=== PATIENT | male | born 1945 | race Two or more races ===

== ENCOUNTER 2018-06-11 18:46 | Emergency (ER) | payer MEDICARE, MEDICAID ==
[2018-06-11] MEDS ORDERED: Sodium Chloride 0.9% 1,000 ML IV ONE (18:49)
--- NOTE | 2018-06-11 19:00 | ED Physician Chart ---
ED Chief Complaint/HPI - Patient Information Date Seen:: 06/11/18 Time Seen:: 19:30 Chief Complaint:: Failure To Thrive History of Present Illness:: onset x 3 days of failure to thrive, poor oral intake, and weakness; no report of trauma, H/As, S/T, neck pain, cough, C/P, SOB, Abd. Pain, N/V/D/C, fever, chills, or urinary s/s Historian:: Patient, EMS Review:: Nurse's Note Reviewed, Old Chart Reviewed, EMS run form Reviewed ED Review of Systems - Review of Systems General/Constitutional: No fever, No chills, No weight loss, Weakness, No diaphoresis, No edema, No loss of appetite Skin: No skin lesions, No rash, No bruising Head: No headache, No light-headedness Eyes: No loss of vision, No pain, No diplopia ENT: No earache, No nasal drainage, No sore throat, No tinnitus Neck: No neck pain, No swelling, No thyromegaly, No stiffness, No mass noted Cardio Vascular: No chest pain, No palpitations, No PND, No orthopnea, No edema Pulmonary: No SOB, No cough, No sputum, No wheezing GI: No nausea, No vomiting, No diarrhea, No pain, No melena, No hematochezia, No constipation, No hematemesis G/U: No dysuria, No frequency, No hematuria, No nacturia Musculoskeletal: No bone or joint pain, No back pain, No muscle pain Endocrine: No polyuria, No polydipsia Psychiatric: No prior psych history, No depression, No anxiety, No suicidal ideation, No homicidal ideation, No auditory hallucination, No visual hallucination Hematopoietic: No bruising, No lymphadenopathy Allergic/Immuno: No urticaria, No angioedema Neurological: No syncope, No focal symptoms, Weakness, No paresthesia, No headache, No seizure, No dizziness, No confusion, No vertigo ED Past Medical History - Past Medical History Obtainable: Yes Past Medical History: HTN, CAD, Asthma/COPD, Dyslipidemia, ESRD, Thyroid disorder Family History: HTN Social History: Non Smoker, No Alcohol, No Drug Use, , Care Facility Surgical History: None Psychiatricy History: None Medication: Reviewed Family Medical History - Family Member Mother History Unknown: Yes ED Physical Exam - Physical Examination General/Constitutional: Awake, Well-developed, well-nourished, Alert, No distress, GCS 15, Non-toxic appearing, Ambulatory Head: Atraumatic Eyes: Lids, conjuctiva normal, PERRL, EOMI Skin: Nl inspection, No rash, No skin lesions, No ecchymosis, Well hydrated, No lymphadenopathy ENMT: External ears, nose nl, TM canals nl, Nasal exam nl, Lips, teeth, gums nl , Oropharynx nl, Tonsils nl Neck: Nontender, Full ROM w/o pain, No JVD, No nuchal rigidity, No bruit, No mass, No stridor Other Neck comments:: supple; no meningeal signs; no cervical tenderness; no bruits Respiratory: Nl effort/Exclusion, Clear to Auscultation, No Wheeze/Rhonchi/Rales Cardio Vascular: RRR, No murmur, gallop, rubs, NL S1 S2, Carotid/Femoral/Distal pulses equal bilaterally GI: No tenderness/rebounding/guarding, No organomegaly, No hernia, Normal BS's, Nondistended, No mass/bruits, No McBurney tenderness, Rectum exam nl Other GI comments:: no pulsatile masses : No CVA tenderness Extremities: No tenderness or effusion, Full ROM, normal strength in all extremities, No edema, Normal digits & nails Neuro/Psych: Alert/oriented, DTR's symmetric, Normal sensory exam, Normal motor strength, Judgement/insight normal, Mood normal, Normal gait, No focal deficits Other Neuro/Psych comments:: no focal signs Misc: Normal back, No paraspinal tenderness ED Labs/Radiology/EKG Results - Lab Results Comments:: Reviewed - Radiology Results Comments:: NAD - EKG Interpretations EKG Time:: 19:01 Rate & Rhythm: 82; NSR Comments:: LVH; non-specific st-t changes ED Septic Shock - . Is Septic Shock (SBP<90, OR Lactate>4 mmol\L) present?: No ED Reassessment (Disposition) - Reassessment Reassessment Condition:: Improved - Diagnosis Diagnosis:: Anemia; ESRD; HTN; DM; Hyperlipidemia;; GERD - Aftercare/Follow up Instructions Aftercare/Follow-Up Instructions:: Counseled pt regarding lab results/diagnosis & need follow up, Refer to Discharge Instructions, Counseled pt & family regarding lab results/diagnosis & need follow up - Patient Disposition Discharge/Transfer:: Special Population Paraprofessional Care - SNF Accepting Physician:: Dr. Kwan Time Called:: 2129 Time Responded:: 21:30 Spoke to:: Dr. 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
[2018-06-11 19:24] LABS: % BASOPHILS 1.1 % (0.0-2.0); % EOSINOPHILS 1.9 % (0.0-5.0); % MONOCYTES 3.9 % (2.0-10.0); % NEUTROPHILS 80.1 % (40.0-80.0); BASOPHILE ABSOLUTE 0.1 Th/cumm (0-0.2); EOSINOPHILE ABSOLUTE 0.2 Th/cmm (0.1-0.4); HEMOGLOBIN 8.9 gm/dL (12-16); LYMPHOCYTE ABSOLUTE 1.1 Th/cmm (1.5-3.0); MEAN CELL VOLUME 88.3 fl (80-99); MEAN CORPUSCULAR HGB CONC 32.8 pg (28.0-36.0); MEAN PLATELET VOLUME 9.2 fl; MONOCYTE ABSOLUTE 0.3 Th/cmm (0.3-1.0); NEUTROPHILE ABSOLUTE 7.1 Th/cmm (1.8-8.0); PLATELET COUNT 257 Th/cmm (150-400); RED BLOOD COUNT 3.06 Mil/cmm (3.80-5.80); RED CELL DISTRIBUTION WIDTH 15.9 % (11.5-20.0); WHITE BLOOD COUNT 8.8 Th/cmm (4.8-10.8)
[2018-06-11 19:37] LABS: ALB/GLOB RATIO 1.1 (1.0-1.8); ALBUMIN 3.3 gm/dL (4.2-5.5); ALKALINE PHOSPHATASE 39 U/L (34-104); AMYLASE SERUM 43 U/L (29-103); ANION GAP 15.6 (7.0-16.0); BILIRUBIN,TOTAL 0.3 mg/dL (0.3-1.0); BUN - UREA NITROGEN 44 mg/dL (7-25); CALCIUM SERUM 9.6 mg/dL (8.6-10.3); CARBON DIOXIDE 28.1 mEq/L (21.0-31.0); CHLORIDE 98 mEq/L (98-107); CREATININE KINASE 26 U/L (30-223); GLUCOSE 118 mg/dL (70-105); LIPASE 31 U/L (11-82); POTASSIUM SERUM 3.7 mEq/L (3.5-5.1); SGOT 10 U/L (13-39); SGPT/ALT 7 U/L (7-52); SODIUM SERUM 138 mEq/L (136-145); TOTAL PROTEIN,SERUM 6.4 gm/dL (6.0-8.3)
[2018-06-11 19:40] LABS: TROP I 0.04 ng/mL (0.01-0.05)
[2018-06-11 20:00] LABS: INR 0.9 (0.5-1.4); PROTHROMBIN TIME (TEST) 9.4 SECONDS (9.5-11.5)
[2018-06-11] MEDS ORDERED: NITROGLYCERIN OINT 2% 1 INCH PACKET TP STA (22:25)
[2018-06-11] MEDS ORDERED: NITROGLYCERIN OINT 2% 1 INCH PACKET TP ONE (22:45)
--- NOTE | 2018-06-12 08:35 | Diagnostic Imaging Report ---
Portable chest x-ray HISTORY: Pain The heart size appears somewhat generous. Atherosclerotic calcification seen in the aorta. No acute focal bony processes. A vascular catheter tip is in the region of the superior vena cava. IMPRESSION: 1. No acute focal pulmonary processes 2. Somewhat generous heart size with atherosclerotic vascular changes
== END 2018-06-12 00:34 ==
LOC: ER 18:46
DX: I12.0 Hypertensive chronic kidney disease with stage 5 chronic kidney disease or end stage renal disease (principal); E11.22 Type 2 diabetes mellitus with diabetic chronic kidney disease; N18.6 End stage renal disease; D64.9 Anemia, unspecified; E78.5 Hyperlipidemia, unspecified; K21.9 Gastro-esophageal reflux disease without esophagitis; I25.10 Atherosclerotic heart disease of native coronary artery without angina pectoris; J44.9 Chronic obstructive pulmonary disease, unspecified; E07.9 Disorder of thyroid, unspecified
CPT/HCPCS: 36415-UA; 71045-TC; 80053-TC; 82150-TC; 82550-TC; 83605; 83690-TC; 84484-TC; 85025-TC; 85610-TC; 85730-TC; 90799; 93005; 96374; J7030; Z7502

== ENCOUNTER 2018-07-22 16:16 | Inpatient (IN) | payer MEDICARE, MEDICAID ==
--- NOTE | 2018-07-22 16:35 | ED Physician Chart ---
ED Chief Complaint/HPI - Patient Information Date Seen:: 07/22/18 Time Seen:: 16:10 Chief Complaint:: Anorexia History of Present Illness:: onset x 3 days of anorexia, weakness, poor oral intake, weight loss, and failure to thrive; no report of trauma, H/As, S/T, neck pain, C/P, cough, SOB, Abd. Pain, N/V/D/C, fever, chills, or urinary s/s Allergies:: Allergies Allergy/AdvReac Type Severity Reaction Status Date / Time No Known Allergies Allergy Verified 06/11/18 19:07 Historian:: Patient, EMS Review:: Nurse's Note Reviewed, Old Chart Reviewed, EMS run form Reviewed <Clarke Petersen - Last Filed: 07/22/18 17:37> - Patient Information Allergies:: Allergies Allergy/AdvReac Type Severity Reaction Status Date / Time No Known Allergies Allergy Verified 07/22/18 16:34 Vitals:: Vital Signs - 8 hr 07/22/18 07/22/18 16:34 19:03 Temp 97.1 F HR 80 78 RR 16 18 BP 146/68 169/83 O2 Sat % 100 100 <Cesar Flores - Last Filed: 07/22/18 20:22> ED Review of Systems - Review of Systems General/Constitutional: No fever, No chills, Weight loss, Weakness, No diaphoresis, No edema, No loss of appetite Skin: No skin lesions, No rash, No bruising Head: No headache, No light-headedness Eyes: No loss of vision, No pain, No diplopia ENT: No earache, No nasal drainage, No sore throat, No tinnitus Neck: No neck pain, No swelling, No thyromegaly, No stiffness, No mass noted Cardio Vascular: No chest pain, No palpitations, No PND, No orthopnea, No edema Pulmonary: No SOB, No cough, No sputum, No wheezing GI: No nausea, No vomiting, No diarrhea, No pain, No melena, No hematochezia, No constipation, No hematemesis G/U: No dysuria, No frequency, No hematuria, No nacturia Musculoskeletal: No bone or joint pain, No back pain, No muscle pain Endocrine: No polyuria, No polydipsia Psychiatric: No prior psych history, No depression, No anxiety, No suicidal ideation, No homicidal ideation, No auditory hallucination, No visual hallucination Hematopoietic: No bruising, No lymphadenopathy Allergic/Immuno: No urticaria, No angioedema Neurological: No syncope, No focal symptoms, Weakness, No paresthesia, No headache, No seizure, No dizziness, Confusion, No vertigo <Clarke Petersen - Last Filed: 07/22/18 17:37> ED Past Medical History - Past Medical History Obtainable: Yes Past Medical History: HTN, DM, CVA/TIA, Dyslipidemia, PUD/GERD, ESRD, Dementia Family History: HTN Social History: Non Smoker, No Alcohol, No Drug Use, , Care Facility Surgical History: other (Dialysis Catheter) Psychiatricy History: Dementia Medication: Reviewed <Clarke Petersen Last Filed: 07/22/18 17:37> Family Medical History - Family Member Mother History Unknown: Yes <Clarke Petersen Filed: 07/22/18 17:37> ED Physical Exam - Physical Examination General/Constitutional: Awake, Well-developed, well-nourished, Alert, No distress, GCS 15, Non-toxic appearing, Ambulatory Head: Atraumatic Eyes: Lids, conjuctiva normal, PERRL, EOMI Skin: Nl inspection, No rash, No skin lesions, No ecchymosis, Well hydrated, No lymphadenopathy ENMT: External ears, nose nl, TM canals nl, Nasal exam nl, Lips, teeth, gums nl , Oropharynx nl, Tonsils nl Neck: Nontender, Full ROM w/o pain, No JVD, No nuchal rigidity, No bruit, No mass, No stridor Respiratory: Nl effort/Exclusion, Clear to Auscultation, No Wheeze/Rhonchi/Rales Cardio Vascular: RRR, No murmur, gallop, rubs, NL S1 S2, Carotid/Femoral/Distal pulses equal bilaterally GI: No tenderness/rebounding/guarding, No organomegaly, No hernia, Normal BS's, Nondistended, No mass/bruits, No McBurney tenderness : No CVA tenderness Extremities: No tenderness or effusion, Full ROM, normal strength in all extremities, No edema, Normal digits & nails Neuro/Psych: Alert/oriented, DTR's symmetric, Normal sensory exam, Normal motor strength, Judgement/insight normal, Mood normal, Normal gait, No focal deficits Misc: Normal back, No paraspinal tenderness <Clarke Petersen - Last Filed: 07/22/18 17:37> ED Labs/Radiology/EKG Results - Lab Results Comments:: Reviewed - Radiology Results Comments:: CXR: NAD; CM - EKG Interpretations EKG Time:: 17:08 Rate & Rhythm: 77; NSR Comments:: LVH; non-specific st-t changes <Clarke Petersen - Last Filed: 07/22/18 17:37> - Lab Results Results: Laboratory Tests 07/22/18 07/22/18 07/22/18 16:44 16:44 16:44 WBC 6.6 RBC 3.28 L Hgb 9.7 L Hct 29.4 L MCV 89.8 MCH 29.5 MCHC Differential 32.8 RDW 17.1 Plt Count 239 MPV 8.5 Neutrophils % 70.8 Lymphocytes % 20.3 Monocytes % 6.2 Eosinophils % 2.1 Basophils % 0.6 PT 10.1 INR 0.97 PTT (Actin FS) 23.8 L Sodium 145 Potassium 3.3 L Chloride 99 Carbon Dioxide 38.4 H Anion Gap 10.9 BUN 21 Creatinine 3.4 H Est GFR ( Amer) TNP Est GFR (Non-Af Amer) TNP BUN/Creatinine Ratio 6.2 Glucose 209 H Whole Bld Lactic Acid Calcium 8.9 Total Bilirubin 0.3 AST 19 ALT 15 Alkaline Phosphatase 41 Creatine Kinase 21 L Troponin I Total Protein 6.6 Albumin 3.3 L Globulin 3.3 Albumin/Globulin Ratio 1.0 07/22/18 07/22/18 07/22/18 16:44 16:44 18:40 WBC RBC Hgb Hct MCV MCH MCHC Differential RDW Plt Count MPV Neutrophils % Lymphocytes % Monocytes % Eosinophils % Basophils % PT INR PTT (Actin FS) Sodium Potassium Chloride Carbon Dioxide Anion Gap BUN Creatinine Est GFR ( Amer) Est GFR (Non-Af Amer) BUN/Creatinine Ratio Glucose Whole Bld Lactic Acid 2.16 H* 2.19 H* Calcium Total Bilirubin AST ALT Alkaline Phosphatase Creatine Kinase Troponin I 0.04 Total Protein Albumin Globulin Albumin/Globulin Ratio <Cesar Flores - Last Filed: 07/22/18 20:22> ED Septic Shock - . Is Septic Shock (SBP<90, OR Lactate>4 mmol\L) present?: No <Clarke Petersen - Last Filed: 07/22/18 17:37> - <6hrs of presentation: Vital Signs: Vital Signs - 8 hr 07/22/18 07/22/18 16:34 19:03 Temp 97.1 F HR 80 78 RR 16 18 BP 146/68 169/83 O2 Sat % 100 100 <Cesar Flores - Last Filed: 07/22/18 20:22> ED Reassessment (Disposition) - Reassessment Reassessment Condition:: Improved - Diagnosis Diagnosis:: Weakness; Failure to Thrive; Poor Oral Intake; Anemia; Sepsis; PNA; Lactic Acidosis; Hypokalemia; Renal Failure <Clarke Petersen - Last Filed: 07/22/18 17:37> - Reassessment Reassessment:: Lactic acid 2.19 Ordered NS 500ml IV bolus x 1 Admit to med surg under Dr. Kwan's service Reassessment Condition:: Improved - Patient Disposition Discharge/Transfer:: Acute Care w/in this hosp Admitting Medical Physician:: Erasmo Kwan <Cesar Flores - Last Filed: 07/22/18 20:22>
[2018-07-22 17:00] LABS: % BASOPHILS 0.6 % (0.0-2.0); % EOSINOPHILS 2.1 % (0.0-5.0); % LYMPHOCYTES 20.3 % (20.0-50.0); % MONOCYTES 6.2 % (2.0-10.0); % NEUTROPHILS 70.8 % (40.0-80.0); EOSINOPHILE ABSOLUTE 0.1 Th/cmm (0.1-0.4); HEMATOCRIT 29.4 % (41.0-60); HEMOGLOBIN 9.7 gm/dL (12-16); LYMPHOCYTE ABSOLUTE 1.3 Th/cmm (1.5-3.0); MEAN CELL VOLUME 89.8 fl (80-99); MEAN CORPUSCULAR HEMOGLOBIN 29.5 pg (27.0-31.0); MEAN CORPUSCULAR HGB CONC 32.8 pg (28.0-36.0); MEAN PLATELET VOLUME 8.5 fl; MONOCYTE ABSOLUTE 0.4 Th/cmm (0.3-1.0); NEUTROPHILE ABSOLUTE 4.8 Th/cmm (1.8-8.0); PLATELET COUNT 239 Th/cmm (150-400); RED BLOOD COUNT 3.28 Mil/cmm (3.80-5.80); RED CELL DISTRIBUTION WIDTH 17.1 % (11.5-20.0); WHITE BLOOD COUNT 6.6 Th/cmm (4.8-10.8)
[2018-07-22 17:11] LABS: INR 0.97 (0.5-1.4); PROTHROMBIN TIME (TEST) 10.1 SECONDS (9.5-11.5)
[2018-07-22 17:13] LABS: ALBUMIN 3.3 gm/dL (4.2-5.5); ALKALINE PHOSPHATASE 41 U/L (34-104); ANION GAP 10.9 (7.0-16.0); BILIRUBIN,TOTAL 0.3 mg/dL (0.3-1.0); BUN - UREA NITROGEN 21 mg/dL (7-25); CALCIUM SERUM 8.9 mg/dL (8.6-10.3); CARBON DIOXIDE 38.4 mEq/L (21.0-31.0); CHLORIDE 99 mEq/L (98-107); CREATININE - SERUM 3.4 mg/dL (0.7-1.3); CREATININE KINASE 21 U/L (30-223); GLUCOSE 209 mg/dL (70-105); POTASSIUM SERUM 3.3 mEq/L (3.5-5.1); SGOT 19 U/L (13-39); SGPT/ALT 15 U/L (7-52); SODIUM SERUM 145 mEq/L (136-145); TOTAL PROTEIN,SERUM 6.6 gm/dL (6.0-8.3)
[2018-07-22] MEDS ORDERED: Potassium Chloride 20 mEq ER Tab PO ONE ×2 (17:38→18:05)
[2018-07-22] MEDS ORDERED: Levofloxacin 500mg/100mL 500 MG/100 ML BAG IV ONE ×3 (17:39→18:06)
[2018-07-22 18:57] LABS: URINE SOURCE MIDSTREAM
[2018-07-22 19:02] LABS: URINE BILIRUBIN NEGATIVE (NEGATIVE); URINE BLOOD TRACE (NEGATIVE); URINE GLUCOSE (UA) 250 mg/dL (NEGATIVE); URINE KETONE NEGATIVE (NEGATIVE); URINE LEUKOCYTE ESTERASE NEGATIVE (NEGATIVE); URINE MICROSCOPIC INDICATED? YES; URINE NITRATE NEGATIVE (NEGATIVE); URINE PH 8.5 (4.6 - 8.0); URINE PROTEIN 100 mg/dL (NEGATIVE); URINE UROBILINOGEN 0.2 E.U./dL (0.2 - 1.0)
[2018-07-22] MEDS ORDERED: Sodium Chloride 0.9% 500 ML IV ONE (19:23)
[2018-07-22] MEDS ORDERED: FAMOTIDINE 10 MG PO SCH (21:00)
[2018-07-22 21:36] LABS: URINE CLARITY HAZY (CLEAR); URINE COLOR YELLOW
[2018-07-22 21:37] LABS: URINE RBC NONE SEEN /hpf (0-5)
[2018-07-22 21:38] LABS: URINE BACTERIA MODERATE /hpf (NONE SEEN); URINE EPITHELIAL CELLS NONE SEEN /lpf (FEW)
[2018-07-22] MEDS: Multivitamin w/ Minerals Tab PO SCH (22:19)
[2018-07-22] MEDS: Aspirin 81mg Chewable Tab PO SCH (22:19)
[2018-07-22 22:29] VITALS: BP 164/83
[2018-07-23] MEDS ORDERED: Levothyroxine 0.05 Mg Tab PO SCH (07:30)
[2018-07-23] MEDS: Aspirin 81mg Chewable Tab PO SCH (08:35)
[2018-07-23] MEDS: Multivitamin w/ Minerals Tab PO SCH (08:36)
--- NOTE | 2018-07-23 08:43 | Diagnostic Imaging Report ---
Chest x-ray single view History: Pain Comparison: 06/11/2018 The heart size is normal. No focal pulmonary parenchymal processes. No hilar or mediastinal abnormalities. Right subclavian catheter remains with tip in superior vena cava. Impression: No acute abnormalities
--- NOTE | 2018-07-23 13:57 | Consultation ---
DATE OF CONSULTATION: 07/22/2018 LOCATION: [facility], room 18, bed C. ATTENDING PHYSICIAN: Dr. wKan. I thank you very much, Dr. Kwan for allowing me to participate in the management of this patient of yours. IDENTIFICATION: This is a 73-year-old male patient known to me for last about a year. The patient is under my care for his chronic hemodialysis 3 times a week at [facility]. The patient is receiving dialysis through right subclavian Perm-A-Cath. The patient lately is anorexic, not able to eat well, severe weakness. The patient had a weight loss. The patient also started having some hallucination. The patient came to the Emergency Room, has been admitted for further treatment. Renal consultation has been requested. According to the nursing staff, the patient does not have any seizures or fall. There is no history of hematuria, vomiting, constipation or diarrhea. PAST MEDICAL AND SURGICAL HISTORY: As stated above, history of hypertension, history of CKD 5, on chronic hemodialysis, history of anemia, history of dementia, history of diabetes mellitus, CVA, dyslipidemia, GERD, hypertension. SOCIAL HISTORY: The patient lives at a senior living. No history of alcoholism or smoking. No drug use. PHYSICAL EXAMINATION: GENERAL: The patient is conscious, but lethargic. VITAL SIGNS: Temperature 97.1, pulse 80, respirations 16, blood pressure 146/68. HEENT: Normocephalic, atraumatic. Eyes, sclerae is nonicteric. Conjunctivae are pale. Pupils reactive. NECK: No stiffness. Jugular venous pressure normal. LUNGS: Good air entry. No rales or rhonchi. HEART: Regular, no rub or gallop. ABDOMEN: Soft, not distended. Bowel sounds are present. EXTREMITIES: No edema of the leg. No calf tenderness. LABORATORY DATA: WBC is 6.6, hemoglobin 9.7, platelet 239,000. Sodium 145, potassium 3.3, chloride 99, CO2 of 38, BUN 21 and creatinine 3.4. ASSESSMENT: 1. Chronic kidney disease 5, on chronic hemodialysis. 2. Hypertension. 3. Anemia. 4. Anorexia. 5. History of dementia. 6. History of hypertension and diabetes. PLAN: Hemodialysis done today as per schedule, which is Saturday, Saturday and Saturday. Next hemodialysis will be on Saturday. We will check CMP, phosphorus, iron level, TSH, T3 in the morning. Dialysis order has already been entered. Discussed with nursing staff and Dr. Kwan at length. I will follow this patient with you. JOB# [id number]
--- NOTE | 2018-07-23 23:34 | History & Physical ---
ADMIT DATE: 07/22/2018 CHIEF COMPLAINT: Failure to thrive, weight loss and poor p.o. intake. HISTORY OF PRESENT ILLNESS: A 73-year-old male who lives in a nursing facility with underlying history of ESRD, on hemodialysis; hypertension; hypothyroidism; mental health disorder; dementia and dysphagia, who has been consistently losing weight with poor p.o. intake, failure to thrive, so the patient was admitted for further evaluation and treatment. During my evaluation, the patient seems very weak, lethargic, and unable to communicate well. The patient is known to me from the senior care facility. PAST MEDICAL HISTORY: ESRD, on hemodialysis; hypothyroidism; hypertension; dementia; mental health disorder and dysphagia. PAST SURGICAL HISTORY: Denies. PAST FAMILY HISTORY: Noncontributory. SOCIAL HISTORY: [facility] resident. No reported alcohol, tobacco, or drug use. HOME MEDICATIONS: None. ALLERGIES: No known drug allergies. REVIEW OF SYSTEMS: Difficult to obtain with the patient's underlying altered mental status. PHYSICAL EXAMINATION: VITAL SIGNS: Temperature 97.2, pulse 83, respiration 17, blood pressure 143/82 and oxygen saturation 99% on room air. HEENT: Unremarkable. HEART: S1 and S2 normal. CHEST: Clear to auscultation bilaterally. ABDOMEN: Soft and nontender. NEUROLOGIC: Awake, confused, moves all extremities, grossly nonfocal. EXTREMITIES: +1 edema in both lower extremities. AVAILABLE LABORATORY DATA: As noted. ASSESSMENT: 1. Failure to thrive. 2. Altered mental status. 3. End-stage renal disease, on hemodialysis. 4. Hypertension. 5. Hypothyroidism. 6. Dysphagia. 7. Dementia. PLAN: The patient admitted to Med/Surg floor, failure to thrive, weight loss. Workup is in progress. CT chest, abdomen and pelvis ordered. Tumor markers ordered including CA 19-9, CEA and TSH: TSH was normal. Other labs reviewed. Nephrology consult ordered for hemodialysis management. Monitor vital signs. Discussed with the patient's condition and plan with nursing staff. [facility]# [id number]
[2018-07-24] MEDS: Levothyroxine 0.1 Mg Tab PO SCH (06:40)
[2018-07-24 06:44] LABS: % BASOPHILS 0.4 % (0.0-2.0); % EOSINOPHILS 2.4 % (0.0-5.0); % LYMPHOCYTES 11.6 % (20.0-50.0); % MONOCYTES 3.9 % (2.0-10.0); % NEUTROPHILS 81.7 % (40.0-80.0); EOSINOPHILE ABSOLUTE 0.2 Th/cmm (0.1-0.4); HEMATOCRIT 30.1 % (41.0-60); HEMOGLOBIN 9.8 gm/dL (12-16); LYMPHOCYTE ABSOLUTE 0.9 Th/cmm (1.5-3.0); MEAN CELL VOLUME 89.4 fl (80-99); MEAN CORPUSCULAR HGB CONC 32.4 pg (28.0-36.0); MEAN PLATELET VOLUME 9.1 fl; MONOCYTE ABSOLUTE 0.3 Th/cmm (0.3-1.0); NEUTROPHILE ABSOLUTE 6.6 Th/cmm (1.8-8.0); PLATELET COUNT 237 Th/cmm (150-400); RED BLOOD COUNT 3.37 Mil/cmm (3.80-5.80); RED CELL DISTRIBUTION WIDTH 16.9 % (11.5-20.0)
[2018-07-24 07:02] LABS: ALB/GLOB RATIO 1.1 (1.0-1.8); ALBUMIN 3.4 gm/dL (4.2-5.5); ALKALINE PHOSPHATASE 41 U/L (34-104); ANION GAP 12.6 (7.0-16.0); BILIRUBIN,TOTAL 0.5 mg/dL (0.3-1.0); BUN - UREA NITROGEN 20 mg/dL (7-25); CALCIUM SERUM 9.4 mg/dL (8.6-10.3); CARBON DIOXIDE 29.5 mEq/L (21.0-31.0); CHLORIDE 106 mEq/L (98-107); CREATININE - SERUM 3.5 mg/dL (0.7-1.3); GLUCOSE 125 mg/dL (70-105); PHOSPHOROUS 1.6 mg/dL (2.5-5.0); POTASSIUM SERUM 4.1 mEq/L (3.5-5.1); SGOT 11 U/L (13-39); SGPT/ALT 10 U/L (7-52); SODIUM SERUM 144 mEq/L (136-145); TOTAL PROTEIN,SERUM 6.6 gm/dL (6.0-8.3)
[2018-07-24] MEDS: Multivitamin w/ Minerals Tab PO SCH (08:42)
[2018-07-24] MEDS: Aspirin 81mg Chewable Tab PO SCH (08:43)
--- NOTE | 2018-07-24 14:03 | Diagnostic Imaging Report ---
CT Chest without IV contrast HISTORY: Abnormal weight COMPARISON: Chest x-ray performed on 07/22/2018. Technique: Axial images were obtained from the base of the neck to the upper abdomen without IV contrast. Reconstructions were made. Total DLP to 47, CTD I explained 4 Findings: A right dialysis catheter is seen from the IJ approach terminating at the cavoatrial junction. Evaluation of mediastinum is limited due to lack of IV contrast. No evidence of mediastinal lymphadenopathy. Heavy atherosclerosis is noted including coronary artery calcifications. The ascending aorta is ectatic measuring up to 3.5 cm. Heart size is normal. No pericardial effusion identified. Evaluation of lungs demonstrates mild chronic lung changes and minimal emphysematous lung changes. Atelectatic changes are seen primarily along the lung bases with bibasilar passive atelectatic and minimal consolidative changes, left greater than right. A few faint nodules are seen along the right upper lobe the largest measuring 3 mm (image 40, series 4). No pleural effusions. There is abnormal area of high density in the region of the left nipple measuring 3.7 x 1.9 cm. Cm. Degenerative changes of the spine are noted. There Appears to be old left C7 facet fracture with old perched or jumped facet at this level. No evidence of subluxation. IMPRESSION: Mild emphysematous lung changes. Minimal bibasilar passive atelectatic and consolidative changes are also noted. Faint right upper lobe nodular densities measuring up to 3 mm nonspecific and may be due to old infectious or inflammatory process. Correlation with old exams would be helpful. Follow-up repeat CT in 6 months may be obtained if indicated. Bibasal passive atelectatic and consolidative changes, left greater than right. Pneumonia in the left base cannot be excluded. High density seen along the left nipple region measuring 3.7 x 1.9 cm. The significance this finding should be neoplastic process or less likely neoplastic process. Clinical correlation is recommended. Consider follow-up with ultrasound. There appears to be old fracture of the left C7 facet what appears to be an old junk or perched facet. Please correlate with clinical history and oral exams. Heavy atherosclerotic vascular disease with coronary artery calcifications. Ectatic ascending aorta is noted measuring up to 3.5 cm. Right dialysis catheter with tip in the cavoatrial junction.
--- NOTE | 2018-07-24 14:09 | Diagnostic Imaging Report ---
CT abdomen and pelvis without intravenous contrast Indication: Abnormal weight Comparison: CT chest performed the same day Technique: Axial images were obtained from the lung bases to the bilateral proximal femurs without IV contrast. Coronal reconstructions were made. total DLP: 470, CTDI9.3 FINDINGS: Please refer to CT chest the same day for further details. Assessment of the solid organs is limited due to lack of IV contrast. No focal hepatic lesions. Multiple gallstones are seen with distended gallbladder. Additional intraluminal densities are noted. No focal splenic lesions. Splenic artery calcifications are noted. Assessment of pancreas is limited. Calcifications along this region are likely the splenic artery calcifications. No focal adrenal lesions. There is severe right renal atrophy. Small right renal cysts are noted measuring up to 1.2 cm. Left renal cysts are noted including large left renal cyst measuring 5 cm. Left hilar calcifications are seen probably vascular. Distended urinary bladder is noted with mild urinary bladder wall thickening. Mild prominence of the prostate gland is noted. There is also prominence of the prostatic urethra. There is distal fecal impaction with mild perirectal and presacral inflammatory changes. Diverticulosis is noted. Trace fluid is seen along the left posterior paracolic gutter region. No appendicitis. No free air. Heavy atherosclerotic vascular disease is seen with probable multiple old walled off dissections. Degenerative changes of the spine and pelvis are noted. No evidence of mesenteric or retroperitoneal lymphadenopathy. Small bilateral fat-containing inguinal hernias are noted. IMPRESSION: Distended gallbladder with gallstones and additional intraluminal densities possibly due to sludge. Recommend further assessment with ultrasound. Distal fecal impaction mild rectal wall thickening and mild surrounding inflammatory change in this region and along the presacral region. Proctitis cannot be excluded. Diverticulosis. Trace nonspecific fluid is seen along the left posterior paracolic gutter. Mild urinary bladder wall thickening, inflammatory process cannot be excluded. Distended urinary bladder is also noted. Mildly prominent prostate gland with mild prominence of the prostatic urethra. Extensive atherosclerotic vascular disease with probable multiple old walled off small dissections. CT with IV contrast, probably angiogram, would provide for additional clarification. No evidence of mesenteric or retroperitoneal lymphadenopathy. Additional findings as above.
--- NOTE | 2018-07-24 18:01 | General Progress Note ---
Subjective - Review of Systems Service Date: 07/24/18 Subjective: Patient seen and examined seems lethargic not eating much lethargic Objective - Results Result Diagrams: 07/24/18 06:20 07/24/18 06:20 Recent Labs: Laboratory Last Values WBC 8.0 Th/cmm (4.8-10.8) 07/24/18 06:20 RBC 3.37 Mil/cmm (3.80-5.80) L 07/24/18 06:20 Hgb 9.8 gm/dL (12-16) L 07/24/18 06:20 Hct 30.1 % (41.0-60) L 07/24/18 06:20 MCV 89.4 fl (80-99) 07/24/18 06:20 MCH 29.0 pg (27.0-31.0) 07/24/18 06:20 MCHC Differential 32.4 pg (28.0-36.0) 07/24/18 06:20 RDW 16.9 % (11.5-20.0) 07/24/18 06:20 Plt Count 237 Th/cmm (150-400) 07/24/18 06:20 MPV 9.1 fl 07/24/18 06:20 Neutrophils % 81.7 % (40.0-80.0) H 07/24/18 06:20 Lymphocytes % 11.6 % (20.0-50.0) L 07/24/18 06:20 Monocytes % 3.9 % (2.0-10.0) 07/24/18 06:20 Eosinophils % 2.4 % (0.0-5.0) 07/24/18 06:20 Basophils % 0.4 % (0.0-2.0) 07/24/18 06:20 PT 10.1 SECONDS (9.5-11.5) 07/22/18 16:44 INR 0.97 (0.5-1.4) 07/22/18 16:44 PTT (Actin FS) 23.8 SECONDS (26.0-38.0) L 07/22/18 16:44 Sodium 144 mEq/L (136-145) 07/24/18 06:20 Potassium 4.1 mEq/L (3.5-5.1) 07/24/18 06:20 Chloride 106 mEq/L (98-107) 07/24/18 06:20 Carbon Dioxide 29.5 mEq/L (21.0-31.0) 07/24/18 06:20 Anion Gap 12.6 (7.0-16.0) 07/24/18 06:20 BUN 20 mg/dL (7-25) 07/24/18 06:20 Creatinine 3.5 mg/dL (0.7-1.3) H 07/24/18 06:20 Est GFR ( Amer) TNP 07/24/18 06:20 Est GFR (Non-Af Amer) TNP 07/24/18 06:20 BUN/Creatinine Ratio 5.7 07/24/18 06:20 Glucose 125 mg/dL (70-105) H 07/24/18 06:20 Whole Bld Lactic Acid 1.35 mmol/L (0.60-1.99) 07/23/18 11:30 Calcium 9.4 mg/dL (8.6-10.3) 07/24/18 06:20 Phosphorus 1.6 mg/dL (2.5-5.0) L 07/24/18 06:20 Total Bilirubin 0.5 mg/dL (0.3-1.0) 07/24/18 06:20 AST 11 U/L (13-39) L 07/24/18 06:20 ALT 10 U/L (7-52) 07/24/18 06:20 Alkaline Phosphatase 41 U/L (34-104) 07/24/18 06:20 Creatine Kinase 21 U/L (30-223) L 07/22/18 16:44 Troponin I 0.04 ng/mL (0.01-0.05) 07/22/18 16:44 Total Protein 6.6 gm/dL (6.0-8.3) 07/24/18 06:20 Albumin 3.4 gm/dL (4.2-5.5) L 07/24/18 06:20 Globulin 3.2 gm/dL 07/24/18 06:20 Albumin/Globulin Ratio 1.1 (1.0-1.8) 07/24/18 06:20 TSH 3.09 uIU/ml (0.34-5.60) 07/22/18 16:44 Urine Source MIDSTREAM 07/22/18 18:14 Urine Color YELLOW 07/22/18 18:14 Urine Clarity HAZY (CLEAR) 07/22/18 18:14 Urine pH 8.5 (4.6 - 8.0) 07/22/18 18:14 Ur Specific [place] 1.015 (1.005-1.030) 07/22/18 18:14 Urine Protein 100 mg/dL (NEGATIVE) H 07/22/18 18:14 Urine Glucose (UA) 250 mg/dL (NEGATIVE) H 07/22/18 18:14 Urine Ketones NEGATIVE mg/dL (NEGATIVE) 07/22/18 18:14 Urine Blood TRACE (NEGATIVE) 07/22/18 18:14 Urine Nitrate NEGATIVE (NEGATIVE) 07/22/18 18:14 Urine Bilirubin NEGATIVE (NEGATIVE) 07/22/18 18:14 Urine Urobilinogen 0.2 E.U./dL (0.2 - 1.0) 07/22/18 18:14 Ur Leukocyte Esterase NEGATIVE (NEGATIVE) 07/22/18 18:14 Urine RBC NONE SEEN /hpf (0-5) 07/22/18 18:14 Urine WBC 6-10 /hpf (0-5) 07/22/18 18:14 Ur Epithelial Cells NONE SEEN /lpf (FEW) 07/22/18 18:14 Urine Bacteria MODERATE /hpf (NONE SEEN) H 07/22/18 18:14 - Physical Exam Vitals and I&O: Vital Signs Temp 97 F 07/24/18 12:00 Pulse 81 07/24/18 17:33 Resp 18 07/24/18 12:00 BP 114/62 07/24/18 17:33 Pulse Ox 98 07/24/18 12:00 Intake & Output 07/23/18 07/24/18 07/24/18 18:59 06:59 18:59 Intake Total 240 Balance 240 Weight (lbs) 64.818 kg Intake: Oral 240 Other: # Voids 2 # Bowel Movements 1 Stool Characteristics Soft Weight Source Bedscale Active Medications: Current Medications Acetaminophen (Tylenol) 325 mg PO Q4HR PRN PRN Reason: Pain Or Fever >100.4 Stop: 09/20/18 20:33 Ascorbic Acid (Vitamin C) 500 mg PO DAILY [facility] Stop: 09/20/18 20:44 Last Admin: 07/24/18 08:43 Dose: 500 mg Aspirin (Aspirin Chewable) 81 mg PO DAILY [facility] Stop: 09/20/18 20:44 Last Admin: 07/24/18 08:43 Dose: 81 mg Carvedilol (Coreg) 3.125 mg PO BIDWM [facility] Stop: 09/21/18 07:59 Last Admin: 07/24/18 17:33 Dose: 3.125 mg Cholecalciferol (Vitamin D3) 2,000 iu PO DAILY [facility] Stop: 09/20/18 22:59 Last Admin: 07/24/18 08:44 Dose: 2,000 iu Cinacalcet (Sensipar) 30 mg PO DAILY [facility] Stop: 09/20/18 22:29 Last Admin: 07/24/18 08:43 Dose: 30 mg Divalproex Sodium (Depakote Dr) 250 mg PO BID [facility]; Protocol Stop: 09/20/18 22:59 Last Admin: 07/24/18 17:31 Dose: 250 mg Famotidine (Pepcid) 20 mg PO DAILY [facility] Stop: 09/20/18 22:29 Last Admin: 07/24/18 08:43 Dose: 20 mg Levothyroxine Sodium (Synthroid) 0.1 mg PO QDAC [facility] Stop: 09/22/18 07:29 Last Admin: 07/24/18 06:40 Dose: 0.1 mg Lorazepam (Ativan) 0.5 mg PO MWF [facility]; Protocol Stop: 09/21/18 08:59 Last Admin: 07/23/18 08:34 Dose: 0.5 mg Megestrol Acetate (Megace) 400 mg PO BID [facility] Stop: 09/20/18 20:44 Last Admin: 07/24/18 17:30 Dose: 400 mg Quetiapine Fumarate 25 mg/ (Quetiapine Fumarate 50 mg) 75 mg PO TID [facility] Stop: 09/21/18 13:59 Last Admin: 07/24/18 13:23 Dose: 75 mg Sevelamer Carbonate (Renvela) 3,200 mg PO TIDWM [facility] Stop: 09/21/18 07:59 Last Admin: 07/24/18 17:30 Dose: 3,200 mg Sodium Bicarbonate (Sodium Bicarbonate) 650 mg PO BID [facility]; Protocol Stop: 09/20/18 22:59 Last Admin: 07/24/18 17:31 Dose: 650 mg General: No acute distress Cardiovascular: Regular rate Lungs: Clear to auscultation Abdomen: Soft, no Tender - Procedures Procedures: Procedures Procedure Code Date PERFORMANCE OF URINARY FILTRATION, <6 HRS/DAY [id number] 07/22/18 Assessment/Plan - Assessment Assessment: Positive blood culture Lethargy ESRD on HD Dysphagia Mental health disorder - Plan Plan: CT Chest ABD reviewed no significant findings noted Positive blood culture Vanco added ID consulted Decrease seroquel to 50 BID HD per schedule ST eval Plan of care discussed with nursing staff Nutritional Asmnt/Malnutr-PDOC - Dietary Evaluation Malnutrition Findings (Please click <Entered> for more info): Nutritional Asmnt/Malnutrition Start: 07/23/18 16: 13 Text: Status: Complete Freq: Protocol: Document 07/23/18 16:18 ALPHONSOG (Rec: 07/23/18 16:45 [email or web address]) Nutritional Asmnt/Malnutrition Patient General Information Nutritional Screening High Risk Diagnosis FTT Pertinent Medical Hx/Surgical Hx HTN, DM, CVA/TIA, dyslipidemia , PUD/GERD, ESRD, dementia Subjective Information Pt seen sleeping in bed at time of visit, lunch tray just delivered. Per LORE Kerns who fed pt this morning, RN stated pt consumed 75% of breakfast and ate well. pt has ESRD on dialysis and hx of DM noted. Glucose 209 at admission. Current Diet Order/ Nutrition Support pureed Pertinent Medications vit C, vit D3, synthroid megace, renvela, sodium bicarbonate Pertinent Labs 2/5 K 3.3, Cr 3.4, Glucose 209 , alb 3.3 Nutritional Hx/Data Height 1.7 m Height (Calculated Centimeters) 170.2 Current Weight (lbs) 64.864 kg Weight (Calculated Kilograms) 64.9 Weight (Calculated Grams) 14100.7 [place] Body Weight 148 Body Mass Index (BMI) 22.4 Weight Status Approriate GI Symptoms GI Symptoms None Last BM 2/6 x 3 Difficult in: None Usual diet at home pureed [facility] per pt chart Skin Integrity/Comment: skin intact. Current %PO Good (75-100%) Estimated Nutritional Goals BEE in Kcals: Using Current wt Calories/Kcals/Kg 27-32 Kcals Calculated 7394-3231 Protein: Using Current wt Protein g/k.2-1.4 Protein Calculated 78-91 Fluid: ml per MD Nutritional Problem 1. Problem Problem altered nutrition related labs Etiology hyperglycemia, renal dysfunction Signs/Symptoms: Cr 3.4, Glucose 209 Malnutrition Alert Is there a minimum of two criteria No selected? Query Text:Check all the applicable criteria. A minimum of two criteria are recommended for diagnosis of either severe or non-severe malnutrition. Malnutrition Related to Morbid Obesity Malnutrition related to morbid obesity No Intervention/Recommendation Comments 1. Continue with pureed diet as ordered. Assist pt with meals. 2. Recommend to add renal 80g protein and CCHO diet d/t pt on dialysis and hyperglycemia. LORE Kerns notified. Diet updated in the afternoon. 3. Monitor PO intake, wt, labs and skin integrity 4. F/U as moderate risk in 3-5 days, PO check 2/8 Expected Outcomes/Goals Expected Outcomes/Goals 1. PO intake to meet at least 75% of nutritional needs. 2. Wt stability, skin to remain intact, labs to approach WNL.
[2018-07-25 06:29] LABS: ALB/GLOB RATIO 1.1 (1.0-1.8); ALBUMIN 3.2 gm/dL (4.2-5.5); ALKALINE PHOSPHATASE 37 U/L (34-104); ANION GAP 13.4 (7.0-16.0); BILIRUBIN,TOTAL 0.4 mg/dL (0.3-1.0); BUN - UREA NITROGEN 29 mg/dL (7-25); CALCIUM SERUM 9.2 mg/dL (8.6-10.3); CARBON DIOXIDE 29.1 mEq/L (21.0-31.0); CHLORIDE 106 mEq/L (98-107); GLUCOSE 122 mg/dL (70-105); PHOSPHOROUS 2.1 mg/dL (2.5-5.0); POTASSIUM SERUM 4.5 mEq/L (3.5-5.1); SGOT 14 U/L (13-39); SGPT/ALT 9 U/L (7-52); SODIUM SERUM 144 mEq/L (136-145); TOTAL PROTEIN,SERUM 6.2 gm/dL (6.0-8.3)
[2018-07-25 06:57] LABS: CREATININE - SERUM 4.7 mg/dL (0.7-1.3)
[2018-07-25] MEDS: Multivitamin w/ Minerals Tab PO SCH (09:31)
--- NOTE | 2018-07-25 09:31 | Progress Notes ---
DATE: LOCATION: [facility], room 17, bed B. SUBJECTIVE: The patient is essentially same, had dialysis yesterday. Vascular surgeon, Dr. Avila has not accepted the patient for AV fistula surgery. OBJECTIVE: VITAL SIGNS: Temperature 97, pulse 81, blood pressure 143/72. Yesterday's intake 140+. HEART: Regular. LUNGS: Good air entry. ABDOMEN: Soft. EXTREMITIES: No edema. LABORATORY DATA: WBC 8.0, hemoglobin 9.8. Sodium 144, potassium 3.1, creatinine 3.5, CO2 29, blood sugar 125, albumin 3.4. ASSESSMENT: 1. Chronic kidney disease 5, on chronic hemodialysis Saturday, Saturday, and Saturday. 2. Hypertension. 3. Anemia. 4. History of dementia. 5. Anorexia. PLAN: We will request Dr. Casanova to do AV fistula and we will ask medical staff office to give him approval temporarily. Hemodialysis will be done tomorrow. We will discuss with primary care physician, Dr. Kwan. JOB# [id number]
[2018-07-25] MEDS: Aspirin 81mg Chewable Tab PO SCH (09:33)
[2018-07-25] MEDS: Levothyroxine 0.1 Mg Tab PO SCH (09:34)
--- NOTE | 2018-07-25 21:15 | General Progress Note ---
Subjective - Review of Systems Service Date: 07/25/18 Subjective: Patient seen and examined seems little better Objective - Results Result Diagrams: 07/24/18 06:20 07/25/18 05:40 Recent Labs: Laboratory Last Values WBC 8.0 Th/cmm (4.8-10.8) 07/24/18 06:20 RBC 3.37 Mil/cmm (3.80-5.80) L 07/24/18 06:20 Hgb 9.8 gm/dL (12-16) L 07/24/18 06:20 Hct 30.1 % (41.0-60) L 07/24/18 06:20 MCV 89.4 fl (80-99) 07/24/18 06:20 MCH 29.0 pg (27.0-31.0) 07/24/18 06:20 MCHC Differential 32.4 pg (28.0-36.0) 07/24/18 06:20 RDW 16.9 % (11.5-20.0) 07/24/18 06:20 Plt Count 237 Th/cmm (150-400) 07/24/18 06:20 MPV 9.1 fl 07/24/18 06:20 Neutrophils % 81.7 % (40.0-80.0) H 07/24/18 06:20 Lymphocytes % 11.6 % (20.0-50.0) L 07/24/18 06:20 Monocytes % 3.9 % (2.0-10.0) 07/24/18 06:20 Eosinophils % 2.4 % (0.0-5.0) 07/24/18 06:20 Basophils % 0.4 % (0.0-2.0) 07/24/18 06:20 PT 10.1 SECONDS (9.5-11.5) 07/22/18 16:44 INR 0.97 (0.5-1.4) 07/22/18 16:44 PTT (Actin FS) 23.8 SECONDS (26.0-38.0) L 07/22/18 16:44 Sodium 144 mEq/L (136-145) 07/25/18 05:40 Potassium 4.5 mEq/L (3.5-5.1) 07/25/18 05:40 Chloride 106 mEq/L (98-107) 07/25/18 05:40 Carbon Dioxide 29.1 mEq/L (21.0-31.0) 07/25/18 05:40 Anion Gap 13.4 (7.0-16.0) 07/25/18 05:40 BUN 29 mg/dL (7-25) H 07/25/18 05:40 Creatinine 4.7 mg/dL (0.7-1.3) H* 07/25/18 05:40 Est GFR ( Amer) TNP 07/25/18 05:40 Est GFR (Non-Af Amer) TNP 07/25/18 05:40 BUN/Creatinine Ratio 6.2 07/25/18 05:40 Glucose 122 mg/dL (70-105) H 07/25/18 05:40 Whole Bld Lactic Acid 1.35 mmol/L (0.60-1.99) 07/23/18 11:30 Calcium 9.2 mg/dL (8.6-10.3) 07/25/18 05:40 Phosphorus 2.1 mg/dL (2.5-5.0) L 07/25/18 05:40 Total Bilirubin 0.4 mg/dL (0.3-1.0) 07/25/18 05:40 AST 14 U/L (13-39) 07/25/18 05:40 ALT 9 U/L (7-52) 07/25/18 05:40 Alkaline Phosphatase 37 U/L (34-104) 07/25/18 05:40 Creatine Kinase 21 U/L (30-223) L 07/22/18 16:44 Troponin I 0.04 ng/mL (0.01-0.05) 07/22/18 16:44 Total Protein 6.2 gm/dL (6.0-8.3) 07/25/18 05:40 Albumin 3.2 gm/dL (4.2-5.5) L 07/25/18 05:40 Globulin 3.0 gm/dL 07/25/18 05:40 Albumin/Globulin Ratio 1.1 (1.0-1.8) 07/25/18 05:40 Carcinoembryonic Ag 3.5 ng/mL (0.0-4.7) 07/24/18 06:20 CA 19-9 Antigen 45 U/mL (0-35) H 07/24/18 06:20 Prostate Specific Ag 3.1 ng/mL (0.0-4.0) 07/24/18 06:20 TSH 3.09 uIU/ml (0.34-5.60) 07/22/18 16:44 Urine Source MIDSTREAM 07/22/18 18:14 Urine Color YELLOW 07/22/18 18:14 Urine Clarity HAZY (CLEAR) 07/22/18 18:14 Urine pH 8.5 (4.6 - 8.0) 07/22/18 18:14 Ur Specific [place] 1.015 (1.005-1.030) 07/22/18 18:14 Urine Protein 100 mg/dL (NEGATIVE) H 07/22/18 18:14 Urine Glucose (UA) 250 mg/dL (NEGATIVE) H 07/22/18 18:14 Urine Ketones NEGATIVE mg/dL (NEGATIVE) 07/22/18 18:14 Urine Blood TRACE (NEGATIVE) 07/22/18 18:14 Urine Nitrate NEGATIVE (NEGATIVE) 07/22/18 18:14 Urine Bilirubin NEGATIVE (NEGATIVE) 07/22/18 18:14 Urine Urobilinogen 0.2 E.U./dL (0.2 - 1.0) 07/22/18 18:14 Ur Leukocyte Esterase NEGATIVE (NEGATIVE) 07/22/18 18:14 Urine RBC NONE SEEN /hpf (0-5) 07/22/18 18:14 Urine WBC 6-10 /hpf (0-5) 07/22/18 18:14 Ur Epithelial Cells NONE SEEN /lpf (FEW) 07/22/18 18:14 Urine Bacteria MODERATE /hpf (NONE SEEN) H 07/22/18 18:14 - Physical Exam Vitals and I&O: Vital Signs Temp 98.0 F 07/25/18 20:00 Pulse 76 07/25/18 20:00 Resp 18 07/25/18 20:00 BP 118/57 07/25/18 20:00 Pulse Ox 99 07/25/18 20:00 Intake & Output 07/25/18 07/25/18 07/26/18 06:59 18:59 06:59 Intake Total 480 240 Balance 480 240 Weight (lbs) 59.874 kg 59.874 kg 63.503 kg Intake: Oral 480 240 Other: # Voids 1 # Bowel Movements 1 Weight Source Bedscale Bedscale Bedscale Active Medications: Current Medications Acetaminophen (Tylenol) 325 mg PO Q4HR PRN PRN Reason: Pain Or Fever >100.4 Stop: 09/20/18 20:33 Ascorbic Acid (Vitamin C) 500 mg PO DAILY [facility] Stop: 09/20/18 20:44 Last Admin: 07/25/18 09:32 Dose: 500 mg Aspirin (Aspirin Chewable) 81 mg PO DAILY [facility] Stop: 09/20/18 20:44 Last Admin: 07/25/18 09:33 Dose: 81 mg Carvedilol (Coreg) 3.125 mg PO BIDWM [facility] Stop: 09/21/18 07:59 Last Admin: 07/25/18 17:36 Dose: 3.125 mg Cholecalciferol (Vitamin D3) 2,000 iu PO DAILY [facility] Stop: 09/20/18 22:59 Last Admin: 07/25/18 09:33 Dose: 2,000 iu Cinacalcet (Sensipar) 30 mg PO DAILY [facility] Stop: 09/20/18 22:29 Last Admin: 07/25/18 09:33 Dose: 30 mg Divalproex Sodium (Depakote Dr) 250 mg PO BID [facility]; Protocol Stop: 09/20/18 22:59 Last Admin: 07/25/18 17:35 Dose: 250 mg Famotidine (Pepcid) 20 mg PO DAILY [facility] Stop: 09/20/18 22:29 Last Admin: 07/25/18 09:33 Dose: 20 mg Levofloxacin (Levaquin) 250 mg PO Q48HR [facility] Stop: 09/25/18 15:59 Levothyroxine Sodium (Synthroid) 0.1 mg PO QDAC [facility] Stop: 09/22/18 07:29 Last Admin: 07/25/18 09:34 Dose: 0.1 mg Lorazepam (Ativan) 0.5 mg PO MWF [facility]; Protocol Stop: 09/21/18 08:59 Last Admin: 07/25/18 09:31 Dose: 0.5 mg Megestrol Acetate (Megace) 400 mg PO BID [facility] Stop: 09/20/18 20:44 Last Admin: 07/25/18 17:36 Dose: 400 mg Miscellaneous (Vancomycin Iv Per Pharmacy) 1 ea MC PRN [facility] Stop: 09/22/18 20:59 Quetiapine Fumarate (Seroquel) 50 mg PO BID [facility]; Protocol Stop: 09/22/18 20:44 Last Admin: 07/25/18 17:35 Dose: 50 mg Sevelamer Carbonate (Renvela) 3,200 mg PO TIDWM [facility] Stop: 09/21/18 07:59 Last Admin: 07/25/18 17:34 Dose: 3,200 mg Sodium Bicarbonate (Sodium Bicarbonate) 650 mg PO BID [facility]; Protocol Stop: 09/20/18 22:59 Last Admin: 07/25/18 17:37 Dose: 650 mg General: No acute distress Cardiovascular: Regular rate Lungs: Clear to auscultation Abdomen: Soft, no Tender - Procedures Procedures: Procedures Procedure Code Date PERFORMANCE OF URINARY FILTRATION, <6 HRS/DAY [id number] 07/22/18 Assessment/Plan - Assessment Assessment: Positive blood culture Elevated CA 19-9 Lethargy ESRD on HD Dysphagia Mental health disorder - Plan Plan: GI consulted for elevated CA 19 9 ID eval pending Follow final culture HD per schedule Plan of care discussed with nursing staff Nutritional Asmnt/Malnutr-PDOC - Dietary Evaluation Malnutrition Findings (Please click <Entered> for more info): Nutritional Asmnt/Malnutrition Start: 07/23/18 16: 13 Text: Status: Complete Freq: Protocol: Document 07/23/18 16:18 LCCISCOG (Rec: 07/23/18 16:45 [email or web address] [email or web address]) Nutritional Asmnt/Malnutrition Patient General Information Nutritional Screening High Risk Diagnosis FTT Pertinent Medical Hx/Surgical Hx HTN, DM, CVA/TIA, dyslipidemia , PUD/GERD, ESRD, dementia Subjective Information Pt seen sleeping in bed at time of visit, lunch tray just delivered. Per LORE Kerns who fed pt this morning, RN stated pt consumed 75% of breakfast and ate well. pt has ESRD on dialysis and hx of DM noted. Glucose 209 at admission. Current Diet Order/ Nutrition Support pureed Pertinent Medications vit C, vit D3, synthroid megace, renvela, sodium bicarbonate Pertinent Labs 2/5 K 3.3, Cr 3.4, Glucose 209 , alb 3.3 Nutritional Hx/Data Height 1.7 m Height (Calculated Centimeters) 170.2 Current Weight (lbs) 64.864 kg Weight (Calculated Kilograms) 64.9 Weight (Calculated Grams) 65586.7 [place] Body Weight 148 Body Mass Index (BMI) 22.4 Weight Status Approriate GI Symptoms GI Symptoms None Last BM 2/6 x 3 Difficult in: None Usual diet at home pureed [facility] at care facility per pt chart Skin Integrity/Comment: skin intact. Current %PO Good (75-100%) Estimated Nutritional Goals BEE in Kcals: Using Current wt Calories/Kcals/Kg 27-32 Kcals Calculated 2300-0634 Protein: Using Current wt Protein g/k.2-1.4 Protein Calculated 78-91 Fluid: ml per MD Nutritional Problem 1. Problem Problem altered nutrition related labs Etiology hyperglycemia, renal dysfunction Signs/Symptoms: Cr 3.4, Glucose 209 Malnutrition Alert Is there a minimum of two criteria No selected? Query Text:Check all the applicable criteria. A minimum of two criteria are recommended for diagnosis of either severe or non-severe malnutrition. Malnutrition Related to Morbid Obesity Malnutrition related to morbid obesity No Intervention/Recommendation Comments 1. Continue with pureed diet as ordered. Assist pt with meals. 2. Recommend to add renal 80g protein and CCHO diet d/t pt on dialysis and hyperglycemia. LORE Kerns notified. Diet updated in the afternoon. 3. Monitor PO intake, wt, labs and skin integrity 4. F/U as moderate risk in 3-5 days, PO check 2/8 Expected Outcomes/Goals Expected Outcomes/Goals 1. PO intake to meet at least 75% of nutritional needs. 2. Wt stability, skin to remain intact, labs to approach WNL.
[2018-07-26] MEDS: Levothyroxine 0.1 Mg Tab PO SCH (06:43)
[2018-07-26 07:31] LABS: INF A SCREEN NEG FOR INF A; INF B SCREEN NEG FOR INF B
--- NOTE | 2018-07-26 09:00 | Consultation ---
DATE OF CONSULTATION: 07/25/2018 REFERRING PHYSICIAN: Dr. Erasmo Kwan. REASON FOR CONSULTATION: Staph bacteremia. HISTORY OF PRESENT ILLNESS: The patient is a 73-year-old male with a past medical history of CKD stage V, on hemodialysis, brought to the ER for failure to thrive, weight loss and poor oral intake. On initial evaluation, the patient's temperature was 97.1 degree Fahrenheit and WBC count was 6600. The patient's lactic acid was 2.19. Blood cultures done and 2 sets of blood culture grew gram-positive cocci in clusters. Vancomycin IV was started and ID consult was called for antibiotic management. PAST MEDICAL HISTORY: Includes CKD stage V on hemodialysis, hypertension, hypothyroidism, dementia, mental disorder, dysphagia. ALLERGIES: NKDA. MEDICATIONS: As per medication reconciliation sheet. ANTIBIOTIC TA: The patient is receiving vancomycin IV as per pharmacy. PAST SURGICAL HISTORY: None significant. The patient has Perm-A-Cath on the right upper chest. FAMILY HISTORY: Noncontributory. SOCIAL HISTORY: The patient lives in a detention. No history of smoking, alcohol or drug use. REVIEW OF SYSTEMS: The patient is a poor historian, unable to give any history. So far, the patient has no fever. PHYSICAL EXAMINATION: VITAL SIGNS: Shows temperature is 97.8 degrees Fahrenheit, pulse 68, respirations 17, blood pressure is 194/81, oxygen saturation 97%. GENERAL: The patient is comfortable lying in the bed, not in acute distress, cachectic. HEENT: Head is normocephalic, atraumatic. Oral cavity moist, pink tongue. Eyes: Pallor is present, no icterus. PERRLA, EOMI. NECK: Supple, no JVD, no bruit. Trachea in midline. CHEST: Bilateral vesicular sounds. Occasional rhonchi heard, but the patient has right upper chest Perm-A-Cath and site is very clean, no erythema, no discharge, no redness, no pain, no tenderness, no induration. HEART: S1, S2 within normal limits. Systolic murmur present. ABDOMEN: Soft, nontender, nondistended. Bowel sounds present. EXTREMITIES: No cyanosis, no clubbing, no edema. The patient has some flexion contractures. LABORATORY DATA: WBC count is 8000, hemoglobin 9.8, hematocrit 30.1, platelets are 237,000, neutrophils 81.7%. Sodium 144, potassium 4.5, chloride 106, bicarbonate is 29.1, BUN is 29, creatinine 4.7 and glucose is 122. Urinalysis showed negative nitrite, negative leukoesterase, and moderate bacteria. Blood culture grew gram-positive cocci in clusters in two sets. Urine culture is clean, no growth. MRSA screen is negative. CT scan of the chest suggested same right upper lobe nodule, emphysematous changes and there is some atelectasis and consolidative changes left greater than right, pneumonia in the left base cannot be excluded. High density seen along the left nipple region, old fracture of the C7 facet. Coronary artery calcification. Right dialysis catheter. CT scan of the abdomen and pelvis suggested distended gallbladder with a gallstone and it is present on the low density, possibly due to sludge, distal fecal impaction, mild rectal wall thickening with mild surrounding inflammatory changes, proctitis cannot be excluded, diverticulosis, mild urinary bladder wall thickening, inflammatory process cannot be excluded. Mildly prominent prostate gland, mild prominence of the prostatic urethra. Extensive atherosclerotic vascular disease with multiple old of small dissection. No evidence of mesenteric or retroperitoneal lymphadenopathy. IMPRESSION: 1. Staphylococcus bacteremia. 2. Pneumonia, left lower lobe pneumonia. 3. Right upper lobe nodule. 4. Hypertension. 5. Anemia. 6. Protein calorie mellitus. 7. Dementia. 8. Hypothyroidism. RECOMMENDATIONS: We will continue vancomycin IV, add Levaquin. Check blood cultures. JOB# [id number]
[2018-07-26] MEDS: Multivitamin w/ Minerals Tab PO SCH (09:54)
[2018-07-26] MEDS: Aspirin 81mg Chewable Tab PO SCH (09:54)
--- NOTE | 2018-07-26 12:17 | General Progress Note ---
Subjective - Review of Systems Service Date: 07/26/18 Objective - Results Result Diagrams: 07/24/18 06:20 07/25/18 05:40 Recent Labs: Laboratory Last Values WBC 8.0 Th/cmm (4.8-10.8) 07/24/18 06:20 RBC 3.37 Mil/cmm (3.80-5.80) L 07/24/18 06:20 Hgb 9.8 gm/dL (12-16) L 07/24/18 06:20 Hct 30.1 % (41.0-60) L 07/24/18 06:20 MCV 89.4 fl (80-99) 07/24/18 06:20 MCH 29.0 pg (27.0-31.0) 07/24/18 06:20 MCHC Differential 32.4 pg (28.0-36.0) 07/24/18 06:20 RDW 16.9 % (11.5-20.0) 07/24/18 06:20 Plt Count 237 Th/cmm (150-400) 07/24/18 06:20 MPV 9.1 fl 07/24/18 06:20 Neutrophils % 81.7 % (40.0-80.0) H 07/24/18 06:20 Lymphocytes % 11.6 % (20.0-50.0) L 07/24/18 06:20 Monocytes % 3.9 % (2.0-10.0) 07/24/18 06:20 Eosinophils % 2.4 % (0.0-5.0) 07/24/18 06:20 Basophils % 0.4 % (0.0-2.0) 07/24/18 06:20 PT 10.1 SECONDS (9.5-11.5) 07/22/18 16:44 INR 0.97 (0.5-1.4) 07/22/18 16:44 PTT (Actin FS) 23.8 SECONDS (26.0-38.0) L 07/22/18 16:44 Sodium 144 mEq/L (136-145) 07/25/18 05:40 Potassium 4.5 mEq/L (3.5-5.1) 07/25/18 05:40 Chloride 106 mEq/L (98-107) 07/25/18 05:40 Carbon Dioxide 29.1 mEq/L (21.0-31.0) 07/25/18 05:40 Anion Gap 13.4 (7.0-16.0) 07/25/18 05:40 BUN 29 mg/dL (7-25) H 07/25/18 05:40 Creatinine 4.7 mg/dL (0.7-1.3) H* 07/25/18 05:40 Est GFR ( Amer) TNP 07/25/18 05:40 Est GFR (Non-Af Amer) TNP 07/25/18 05:40 BUN/Creatinine Ratio 6.2 07/25/18 05:40 Glucose 122 mg/dL (70-105) H 07/25/18 05:40 Whole Bld Lactic Acid 1.35 mmol/L (0.60-1.99) 07/23/18 11:30 Calcium 9.2 mg/dL (8.6-10.3) 07/25/18 05:40 Phosphorus 2.1 mg/dL (2.5-5.0) L 07/25/18 05:40 Total Bilirubin 0.4 mg/dL (0.3-1.0) 07/25/18 05:40 AST 14 U/L (13-39) 07/25/18 05:40 ALT 9 U/L (7-52) 07/25/18 05:40 Alkaline Phosphatase 37 U/L (34-104) 07/25/18 05:40 Creatine Kinase 21 U/L (30-223) L 07/22/18 16:44 Troponin I 0.04 ng/mL (0.01-0.05) 07/22/18 16:44 Total Protein 6.2 gm/dL (6.0-8.3) 07/25/18 05:40 Albumin 3.2 gm/dL (4.2-5.5) L 07/25/18 05:40 Globulin 3.0 gm/dL 07/25/18 05:40 Albumin/Globulin Ratio 1.1 (1.0-1.8) 07/25/18 05:40 Carcinoembryonic Ag 3.5 ng/mL (0.0-4.7) 07/24/18 06:20 CA 19-9 Antigen 45 U/mL (0-35) H 07/24/18 06:20 Prostate Specific Ag 3.1 ng/mL (0.0-4.0) 07/24/18 06:20 TSH 3.09 uIU/ml (0.34-5.60) 07/22/18 16:44 Urine Source MIDSTREAM 07/22/18 18:14 Urine Color YELLOW 07/22/18 18:14 Urine Clarity HAZY (CLEAR) 07/22/18 18:14 Urine pH 8.5 (4.6 - 8.0) 07/22/18 18:14 Ur Specific [place] 1.015 (1.005-1.030) 07/22/18 18:14 Urine Protein 100 mg/dL (NEGATIVE) H 07/22/18 18:14 Urine Glucose (UA) 250 mg/dL (NEGATIVE) H 07/22/18 18:14 Urine Ketones NEGATIVE mg/dL (NEGATIVE) 07/22/18 18:14 Urine Blood TRACE (NEGATIVE) 07/22/18 18:14 Urine Nitrate NEGATIVE (NEGATIVE) 07/22/18 18:14 Urine Bilirubin NEGATIVE (NEGATIVE) 07/22/18 18:14 Urine Urobilinogen 0.2 E.U./dL (0.2 - 1.0) 07/22/18 18:14 Ur Leukocyte Esterase NEGATIVE (NEGATIVE) 07/22/18 18:14 Urine RBC NONE SEEN /hpf (0-5) 07/22/18 18:14 Urine WBC 6-10 /hpf (0-5) 07/22/18 18:14 Ur Epithelial Cells NONE SEEN /lpf (FEW) 07/22/18 18:14 Urine Bacteria MODERATE /hpf (NONE SEEN) H 07/22/18 18:14 Influenza A (Rapid) NEG FOR INF A 07/26/18 05:20 Influenza B (Rapid) NEG FOR INF B 07/26/18 05:20 - Physical Exam Vitals and I&O: Vital Signs Temp 97.7 F 07/26/18 04:00 Pulse 75 07/26/18 09:55 Resp 18 07/26/18 07:58 BP 171/83 07/26/18 09:55 Pulse Ox 98 07/26/18 07:58 Intake & Output 07/25/18 07/26/18 07/26/18 18:59 06:59 18:59 Intake Total 240 100 Balance 240 100 Weight (lbs) 59.874 kg 63.503 kg Intake: Oral 240 100 Other: # Voids 2 # Bowel Movements 1 Weight Source Bedscale Bedscale Active Medications: Current Medications Acetaminophen (Tylenol) 325 mg PO Q4HR PRN PRN Reason: Pain Or Fever >100.4 Stop: 09/20/18 20:33 Ascorbic Acid (Vitamin C) 500 mg PO DAILY [facility] Stop: 09/20/18 20:44 Last Admin: 07/26/18 09:54 Dose: 500 mg Aspirin (Aspirin Chewable) 81 mg PO DAILY [facility] Stop: 09/20/18 20:44 Last Admin: 07/26/18 09:54 Dose: 81 mg Carvedilol (Coreg) 6.25 mg PO BID [facility] Stop: 09/24/18 16:59 Cholecalciferol (Vitamin D3) 2,000 iu PO DAILY [facility] Stop: 09/20/18 22:59 Last Admin: 07/26/18 09:55 Dose: 2,000 iu Cinacalcet (Sensipar) 30 mg PO DAILY [facility] Stop: 09/20/18 22:29 Last Admin: 07/26/18 09:55 Dose: 30 mg Divalproex Sodium (Depakote Dr) 250 mg PO BID [facility]; Protocol Stop: 09/20/18 22:59 Last Admin: 07/26/18 09:55 Dose: 250 mg Famotidine (Pepcid) 20 mg PO DAILY [facility] Stop: 09/20/18 22:29 Last Admin: 07/26/18 09:54 Dose: 20 mg Levofloxacin (Levaquin) 250 mg PO Q48HR [facility] Stop: 09/25/18 15:59 Levothyroxine Sodium (Synthroid) 0.1 mg PO QDAC [facility] Stop: 09/22/18 07:29 Last Admin: 07/26/18 06:43 Dose: 0.1 mg Lorazepam (Ativan) 0.5 mg PO MWF [facility]; Protocol Stop: 09/21/18 08:59 Last Admin: 07/25/18 09:31 Dose: 0.5 mg Losartan Potassium (Cozaar) 25 mg PO DAILY [facility] Stop: 09/25/18 08:59 Megestrol Acetate (Megace) 400 mg PO BID [facility] Stop: 09/20/18 20:44 Last Admin: 07/26/18 09:56 Dose: 400 mg Miscellaneous (Vancomycin Iv Per Pharmacy) 1 ea [facility] PRN [facility]PRIYA Stop: 09/22/18 20:59 Miscellaneous (Tpn Per Pharmacy) 1 ea PRN PRN PRN Reason: PROTOCOL Stop: 09/24/18 11:26 Quetiapine Fumarate (Seroquel) 50 mg PO BID [facility]; Protocol Stop: 09/22/18 20:44 Last Admin: 07/26/18 09:54 Dose: 50 mg Sodium Bicarbonate (Sodium Bicarbonate) 650 mg PO BID [facility]; Protocol Stop: 09/20/18 22:59 Last Admin: 07/26/18 09:55 Dose: 650 mg General: No acute distress Cardiovascular: Regular rate Lungs: Clear to auscultation Abdomen: Soft, no Tender - Procedures Procedures: Procedures Procedure Code Date PERFORMANCE OF URINARY FILTRATION, <6 HRS/DAY [id number] 07/22/18 Assessment/Plan - Assessment Assessment: 73M bacteremia gm+cocci RIJ tunneled hemodialysis permacatheter nephro and PCP suspect line sepsis spoke w/ niece: reportedly wants to wait until final cultures return. unwilling to give consent for removal and replacement HD cath. continue iv abx for now - Plan Plan: nurses to contact me if niece/family agree to above stated procedures. Nutritional Asmnt/Malnutr-PDOC - Dietary Evaluation Malnutrition Findings (Please click <Entered> for more info): Nutritional Asmnt/Malnutrition Start: 07/23/18 16: 13 Text: Status: Complete Freq: Protocol: Document 07/23/18 16:18 LCHENG (Rec: 07/23/18 16:45 [email or web address]) Nutritional Asmnt/Malnutrition Patient General Information Nutritional Screening High Risk Diagnosis FTT Pertinent Medical Hx/Surgical Hx HTN, DM, CVA/TIA, dyslipidemia , PUD/GERD, ESRD, dementia Subjective Information Pt seen sleeping in bed at time of visit, lunch tray just delivered. Per LORE Kerns who fed pt this morning, RN stated pt consumed 75% of breakfast and ate well. pt has ESRD on dialysis and hx of DM noted. Glucose 209 at admission. Current Diet Order/ Nutrition Support pureed Pertinent Medications vit C, vit D3, synthroid megace, renvela, sodium bicarbonate Pertinent Labs 2/5 K 3.3, Cr 3.4, Glucose 209 , alb 3.3 Nutritional Hx/Data Height 1.7 m Height (Calculated Centimeters) 170.2 Current Weight (lbs) 64.864 kg Weight (Calculated Kilograms) 64.9 Weight (Calculated Grams) 27583.7 [place] Body Weight 148 Body Mass Index (BMI) 22.4 Weight Status Approriate GI Symptoms GI Symptoms None Last BM 2/6 x 3 Difficult in: None Usual diet at home pureed MARIANN CCHO renal at care facility per pt chart Skin Integrity/Comment: skin intact. Current %PO Good (75-100%) Estimated Nutritional Goals BEE in Kcals: Using Current wt Calories/Kcals/Kg 27-32 Kcals Calculated 3926-6063 Protein: Using Current wt Protein g/k.2-1.4 Protein Calculated 78-91 Fluid: ml per MD Nutritional Problem 1. Problem Problem altered nutrition related labs Etiology hyperglycemia, renal dysfunction Signs/Symptoms: Cr 3.4, Glucose 209 Malnutrition Alert Is there a minimum of two criteria No selected? Query Text:Check all the applicable criteria. A minimum of two criteria are recommended for diagnosis of either severe or non-severe malnutrition. Malnutrition Related to Morbid Obesity Malnutrition related to morbid obesity No Intervention/Recommendation Comments 1. Continue with pureed diet as ordered. Assist pt with meals. 2. Recommend to add renal 80g protein and CCHO diet d/t pt on dialysis and hyperglycemia. LORE Kerns notified. Diet updated in the afternoon. 3. Monitor PO intake, wt, labs and skin integrity 4. F/U as moderate risk in 3-5 days, PO check 2/8 Expected Outcomes/Goals Expected Outcomes/Goals 1. PO intake to meet at least 75% of nutritional needs. 2. Wt stability, skin to remain intact, labs to approach WNL.
--- NOTE | 2018-07-26 16:29 | General Progress Note ---
Subjective - Review of Systems Service Date: 07/26/18 Subjective: Patient seen and examined nursing staff reported that patient started eating better afebrile Objective - Results Result Diagrams: 07/24/18 06:20 07/25/18 05:40 Recent Labs: Laboratory Last Values WBC 8.0 Th/cmm (4.8-10.8) 07/24/18 06:20 RBC 3.37 Mil/cmm (3.80-5.80) L 07/24/18 06:20 Hgb 9.8 gm/dL (12-16) L 07/24/18 06:20 Hct 30.1 % (41.0-60) L 07/24/18 06:20 MCV 89.4 fl (80-99) 07/24/18 06:20 MCH 29.0 pg (27.0-31.0) 07/24/18 06:20 MCHC Differential 32.4 pg (28.0-36.0) 07/24/18 06:20 RDW 16.9 % (11.5-20.0) 07/24/18 06:20 Plt Count 237 Th/cmm (150-400) 07/24/18 06:20 MPV 9.1 fl 07/24/18 06:20 Neutrophils % 81.7 % (40.0-80.0) H 07/24/18 06:20 Lymphocytes % 11.6 % (20.0-50.0) L 07/24/18 06:20 Monocytes % 3.9 % (2.0-10.0) 07/24/18 06:20 Eosinophils % 2.4 % (0.0-5.0) 07/24/18 06:20 Basophils % 0.4 % (0.0-2.0) 07/24/18 06:20 PT 10.1 SECONDS (9.5-11.5) 07/22/18 16:44 INR 0.97 (0.5-1.4) 07/22/18 16:44 PTT (Actin FS) 23.8 SECONDS (26.0-38.0) L 07/22/18 16:44 Sodium 144 mEq/L (136-145) 07/25/18 05:40 Potassium 4.5 mEq/L (3.5-5.1) 07/25/18 05:40 Chloride 106 mEq/L (98-107) 07/25/18 05:40 Carbon Dioxide 29.1 mEq/L (21.0-31.0) 07/25/18 05:40 Anion Gap 13.4 (7.0-16.0) 07/25/18 05:40 BUN 29 mg/dL (7-25) H 07/25/18 05:40 Creatinine 4.7 mg/dL (0.7-1.3) H* 07/25/18 05:40 Est GFR ( Amer) TNP 07/25/18 05:40 Est GFR (Non-Af Amer) TNP 07/25/18 05:40 BUN/Creatinine Ratio 6.2 07/25/18 05:40 Glucose 122 mg/dL (70-105) H 07/25/18 05:40 Whole Bld Lactic Acid 1.35 mmol/L (0.60-1.99) 07/23/18 11:30 Calcium 9.2 mg/dL (8.6-10.3) 07/25/18 05:40 Phosphorus 2.1 mg/dL (2.5-5.0) L 07/25/18 05:40 Total Bilirubin 0.4 mg/dL (0.3-1.0) 07/25/18 05:40 AST 14 U/L (13-39) 07/25/18 05:40 ALT 9 U/L (7-52) 07/25/18 05:40 Alkaline Phosphatase 37 U/L (34-104) 07/25/18 05:40 Creatine Kinase 21 U/L (30-223) L 07/22/18 16:44 Troponin I 0.04 ng/mL (0.01-0.05) 07/22/18 16:44 Total Protein 6.2 gm/dL (6.0-8.3) 07/25/18 05:40 Albumin 3.2 gm/dL (4.2-5.5) L 07/25/18 05:40 Globulin 3.0 gm/dL 07/25/18 05:40 Albumin/Globulin Ratio 1.1 (1.0-1.8) 07/25/18 05:40 Carcinoembryonic Ag 3.5 ng/mL (0.0-4.7) 07/24/18 06:20 CA 19-9 Antigen 45 U/mL (0-35) H 07/24/18 06:20 Prostate Specific Ag 3.1 ng/mL (0.0-4.0) 07/24/18 06:20 TSH 3.09 uIU/ml (0.34-5.60) 07/22/18 16:44 Urine Source MIDSTREAM 07/22/18 18:14 Urine Color YELLOW 07/22/18 18:14 Urine Clarity HAZY (CLEAR) 07/22/18 18:14 Urine pH 8.5 (4.6 - 8.0) 07/22/18 18:14 Ur Specific [place] 1.015 (1.005-1.030) 07/22/18 18:14 Urine Protein 100 mg/dL (NEGATIVE) H 07/22/18 18:14 Urine Glucose (UA) 250 mg/dL (NEGATIVE) H 07/22/18 18:14 Urine Ketones NEGATIVE mg/dL (NEGATIVE) 07/22/18 18:14 Urine Blood TRACE (NEGATIVE) 07/22/18 18:14 Urine Nitrate NEGATIVE (NEGATIVE) 07/22/18 18:14 Urine Bilirubin NEGATIVE (NEGATIVE) 07/22/18 18:14 Urine Urobilinogen 0.2 E.U./dL (0.2 - 1.0) 07/22/18 18:14 Ur Leukocyte Esterase NEGATIVE (NEGATIVE) 07/22/18 18:14 Urine RBC NONE SEEN /hpf (0-5) 07/22/18 18:14 Urine WBC 6-10 /hpf (0-5) 07/22/18 18:14 Ur Epithelial Cells NONE SEEN /lpf (FEW) 07/22/18 18:14 Urine Bacteria MODERATE /hpf (NONE SEEN) H 07/22/18 18:14 Influenza A (Rapid) NEG FOR INF A 07/26/18 05:20 Influenza B (Rapid) NEG FOR INF B 07/26/18 05:20 - Physical Exam Vitals and I&O: Vital Signs Temp 97.7 F 07/26/18 04:00 Pulse 75 07/26/18 09:55 Resp 18 07/26/18 07:58 BP 171/83 07/26/18 09:55 Pulse Ox 98 07/26/18 07:58 Intake & Output 07/25/18 07/26/18 07/26/18 18:59 06:59 18:59 Intake Total 240 100 Balance 240 100 Weight (lbs) 59.874 kg 63.503 kg Intake: Oral 240 100 Other: # Voids 2 # Bowel Movements 1 Weight Source Bedscale Bedscale Active Medications: Current Medications Acetaminophen (Tylenol) 325 mg PO Q4HR PRN PRN Reason: Pain Or Fever >100.4 Stop: 09/20/18 20:33 Ascorbic Acid (Vitamin C) 500 mg PO DAILY [facility] Stop: 09/20/18 20:44 Last Admin: 07/26/18 09:54 Dose: 500 mg Aspirin (Aspirin Chewable) 81 mg PO DAILY [facility] Stop: 09/20/18 20:44 Last Admin: 07/26/18 09:54 Dose: 81 mg Carvedilol (Coreg) 6.25 mg PO BID [facility] Stop: 09/24/18 16:59 Cholecalciferol (Vitamin D3) 2,000 iu PO DAILY [facility] Stop: 09/20/18 22:59 Last Admin: 07/26/18 09:55 Dose: 2,000 iu Cinacalcet (Sensipar) 30 mg PO DAILY [facility] Stop: 09/20/18 22:29 Last Admin: 07/26/18 09:55 Dose: 30 mg Divalproex Sodium (Depakote Dr) 250 mg PO BID [facility]; Protocol Stop: 09/20/18 22:59 Last Admin: 07/26/18 09:55 Dose: 250 mg Famotidine (Pepcid) 20 mg PO DAILY [facility] Stop: 09/20/18 22:29 Last Admin: 07/26/18 09:54 Dose: 20 mg Levofloxacin (Levaquin) 250 mg PO Q48HR [facility] Stop: 09/25/18 15:59 Levothyroxine Sodium (Synthroid) 0.1 mg PO QDAC [facility] Stop: 09/22/18 07:29 Last Admin: 07/26/18 06:43 Dose: 0.1 mg Lorazepam (Ativan) 0.5 mg PO MWF [facility]; Protocol Stop: 09/21/18 08:59 Last Admin: 07/25/18 09:31 Dose: 0.5 mg Losartan Potassium (Cozaar) 25 mg PO DAILY [facility] Stop: 09/25/18 08:59 Megestrol Acetate (Megace) 400 mg PO BID [facility] Stop: 09/20/18 20:44 Last Admin: 02/09/19 09:56 Dose: 400 mg Miscellaneous (Vancomycin Iv Per Pharmacy) 1 ea [facility] PRN SUPRIYA Stop: 09/22/18 20:59 Miscellaneous (Tpn Per Pharmacy) 1 ea MC PRN PRN PRN Reason: PROTOCOL Stop: 09/24/18 11:26 Quetiapine Fumarate (Seroquel) 50 mg PO BID [facility]; Protocol Stop: 09/22/18 20:44 Last Admin: 07/26/18 09:54 Dose: 50 mg Sodium Bicarbonate (Sodium Bicarbonate) 650 mg PO BID [facility]; Protocol Stop: 09/20/18 22:59 Last Admin: 07/26/18 09:55 Dose: 650 mg General: No acute distress Neck: Other (perma cath site clean) Cardiovascular: Regular rate Lungs: Clear to auscultation Abdomen: Soft, no Tender - Procedures Procedures: Procedures Procedure Code Date PERFORMANCE OF URINARY FILTRATION, <6 HRS/DAY [id number] 07/22/18 Assessment/Plan - Assessment Assessment: Staph bacteremia Elevated CA 19-9 Failure to thrive Lethargy slowly improving ESRD on HD Dysphagia Mental health disorder - Plan Plan: Continue antibiotics ID agreed Nephrology requested to change perma cath but family did not give consent per Vascular surgery note. Monitor calorie count Follow final cultures Plan of care discussed with the nursing staff Nutritional Asmnt/Malnutr-PDOC - Dietary Evaluation Malnutrition Findings (Please click <Entered> for more info): Nutritional Asmnt/Malnutrition Start: 07/23/18 16: 13 Text: Status: Complete Freq: Protocol: Document 07/23/18 16:18 LCHENG (Rec: 07/23/18 16:45 LCHENG [email or web address]) Nutritional Asmnt/Malnutrition Patient General Information Nutritional Screening High Risk Diagnosis FTT Pertinent Medical Hx/Surgical Hx HTN, DM, CVA/TIA, dyslipidemia , PUD/GERD, ESRD, dementia Subjective Information Pt seen sleeping in bed at time of visit, lunch tray just delivered. Per LORE Kerns who fed pt this morning, RN stated pt consumed 75% of breakfast and ate well. pt has ESRD on dialysis and hx of DM noted. Glucose 209 at admission. Current Diet Order/ Nutrition Support pureed Pertinent Medications vit C, vit D3, synthroid megace, renvela, sodium bicarbonate Pertinent Labs 5 K 3.3, Cr 3.4, Glucose 209 , alb 3.3 Nutritional Hx/Data Height 1.7 m Height (Calculated Centimeters) 170.2 Current Weight (lbs) 64.864 kg Weight (Calculated Kilograms) 64.9 Weight (Calculated Grams) 00306.7 [place] Body Weight 148 Body Mass Index (BMI) 22.4 Weight Status Approriate GI Symptoms GI Symptoms None Last BM 2/6 x 3 Difficult in: None Usual diet at home pureed [facility] CCHO renal at care facility per pt chart Skin Integrity/Comment: skin intact. Current %PO Good (75-100%) Estimated Nutritional Goals BEE in Kcals: Using Current wt Calories/Kcals/Kg 27-32 Kcals Calculated 1228-3746 Protein: Using Current wt Protein g/k.2-1.4 Protein Calculated 78-91 Fluid: ml per MD Nutritional Problem 1. Problem Problem altered nutrition related labs Etiology hyperglycemia, renal dysfunction Signs/Symptoms: Cr 3.4, Glucose 209 Malnutrition Alert Is there a minimum of two criteria No selected? Query Text:Check all the applicable criteria. A minimum of two criteria are recommended for diagnosis of either severe or non-severe malnutrition. Malnutrition Related to Morbid Obesity Malnutrition related to morbid obesity No Intervention/Recommendation Comments 1. Continue with pureed diet as ordered. Assist pt with meals. 2. Recommend to add renal 80g protein and CCHO diet d/t pt on dialysis and hyperglycemia. LORE Kerns notified. Diet updated in the afternoon. 3. Monitor PO intake, wt, labs and skin integrity 4. F/U as moderate risk in 3-5 days, PO check 2/8 Expected Outcomes/Goals Expected Outcomes/Goals 1. PO intake to meet at least 75% of nutritional needs. 2. Wt stability, skin to remain intact, labs to approach WNL.
--- NOTE | 2018-07-26 19:27 | Progress Notes ---
DATE: 07/25/2018 LOCATION: Room #17, bed B, [facility]. The patient seems to be more alert. The patient is on dialysis right now, tolerating it well. Blood pressure is little bit low, but the patient is almost done with dialysis. No cramps or vomiting. PHYSICAL EXAMINATION: VITAL SIGNS: Temperature 97.8, pulse 68, blood pressure 100/60, oxygen saturation 97. Yesterday's intake and output not documented. HEART: Regular. LUNGS: Good air entry. ABDOMEN: Soft. EXTREMITIES: No edema. SIGNIFICANT LABORATORY DATA: Creatinine 4.7, potassium 4.5, phosphorus improved to 2.1. ASSESSMENT: 1. Chronic kidney disease 5, on chronic hemodialysis Saturday, Saturday, and Saturday. 2. Perm-A-Cath in the right shoulder. 3. Hypertension. 4. Anemia. 5. Dementia. 6. Anorexia. PLAN: Discussed with medical staff office, Dr. Enriquez and Dr. Florez, does not have privilege for surgery for AV fistula. Discussed with Dr. Avila who will not do surgery for AV fistula. Since this is not an emergency we can get this surgery done as outpatient. The patient's current PermCath access is functioning well. With that the patient's kidney status seems to be stable for discharge. Discussed with Dr. Kwan at length. JOB# [id number]
--- NOTE | 2018-07-27 00:41 | Progress Notes ---
DATE: 07/26/2018 LOCATION: [facility], room 17, bed B. SUBJECTIVE: The patient seems to be more alert today, very poor intake, had dialysis yesterday. The patient's calorie count is significant for very poor calorie intake, even after patient's Seroquel has been decreased. PHYSICAL EXAMINATION: VITAL SIGNS: Heart rate 75, blood pressure 171/83, temperature 97.7. Yesterday's intake 480 mL, day before yesterday, intake 240 mL and before that only 140 mL. HEART: Regular. LUNGS: Good air entry. ABDOMEN: Soft. EXTREMITIES: No edema. LABORATORY DATA: Creatinine 4.7, potassium 4.5, phosphorus 2.1, calcium 9.2, albumin 3.2. Blood culture reports gram-positive cocci. ASSESSMENT AND PLAN: 1. Chronic kidney disease 5, on chronic hemodialysis, Saturday, Saturday, Saturday. 2. Malnutrition with very poor intake. 3. Hypertension. 4. Sepsis. 5. Anemia. 6. Perm-A-Cath. 7. Dementia. 8. Hypophosphatemia. PLAN: 1. Discontinue phosphate binder, sevelamer due to hypophosphatemia. 2. Increase Coreg to 6.25 mg p.o. b.i.d. and start patient on Cozaar 25 mg once a day due to hypertension. 3. If patient's blood cultures are positive for Staph aureus then the patient will require removal of the Perm-A-Cath and the patient will require insertion of triple lumen Pedro catheter. 4. The patient will require TPN due to severe malnutrition. 5. Check CBC, CMP, phosphorus in the morning. 6. Hemodialysis will be Saturday, which can be done through Pedro catheter if that is necessary to insert. Case has been discussed with Dr. Flores Kwan and ____ at length. JOB# [id number]
--- NOTE | 2018-07-27 00:54 | Consultation ---
DATE OF CONSULTATION: 07/26/2018 TIME: 11:26 a.m. HISTORY OF PRESENT ILLNESS: The patient is a 73-year-old male who presented to the ER with 3 days of anorexia, weakness, poor oral intake, weight loss and failure to thrive. The patient has chronic renal failure, hemodialysis dependent, has a right IJ tunneled hemodialysis Perm-A-Cath, but recent blood cultures showed gram-positive cocci x 2. The correctional captain spoke with me today and is requesting for the dialysis catheter to be removed, although there are no obvious signs of infection at the site and requesting a new catheter placement if possible. Lives in a shelter facility. PAST MEDICAL HISTORY: Hypertension, hypothyroidism, mental health disorder, dementia and dysphagia, failure to thrive. PAST SURGICAL HISTORY: Denies. FAMILY HISTORY: Noncontributory. HOME MEDICATIONS: None. ALLERGIES: No known drug allergies. REVIEW OF SYSTEMS: Unable to obtain because of his mental status. PHYSICAL EXAMINATION: VITAL SIGNS: He is 63 kilograms. BMI of 21.9. He is afebrile. Vital signs otherwise stable. GENERAL: He is awake, but does not really follow commands. He is encephalopathic. HEENT AND NECK: Within normal limits. He has a right IJ tunneled hemodialysis Perm-A-Cath. LUNGS: Clear to auscultation bilaterally. CARDIOVASCULAR: Regular rate. ABDOMEN: Soft, nontender, nondistended. NEUROVASCULAR: Otherwise normal. No CVA, flank, or paraspinal tenderness. LABORATORY DATA: His white blood cell count is 8, H and H is 9.8 and 30.1, and platelet count 237. BUN and creatinine is 29 and 4.7. The patient reportedly got dialysis yesterday. MEDICATIONS: The patient is on acetaminophen, vitamin C, aspirin 81 mg p.o. every day. He is on Levaquin. IMAGING STUDIES: Chest CT revealed mild emphysematous lung changes, minimal bibasilar passive atelectatic and consolidative changes. Faint right upper lobe nodule densities appearing up to 3 mm in size, nonspecific, may be due to infectious inflammatory process. Correlation with old exams would be helpful. Follow up repeat CT in 6 months may be obtained if indicated. Bibasilar passive atelectasis and consolidative changes, left greater than right pneumonia and left base cannot be excluded, high density seen along the left nipple region measuring 3.7 x 1.9 cm. The significant finding should be ruled out neoplastic process. There appears to be old fracture of the left C7 facet, which appears to be an old perched facet, there is a right dialysis catheter with tip in the cavoatrial junction. CT of the abdomen and pelvis reveals distended gallbladder with gallstones and additional intraluminal densities, possibly due to sludge, distal fecal impaction, mild rectal wall thickening and mild surrounding inflammatory change in this region. Proctitis cannot be excluded. Diverticulosis, mild urinary bladder wall thickening, inflammatory process cannot be excluded. Mild prominent prostate gland with mild prominence of the prostatic urethra. Extensive atherosclerotic vascular disease with probable multiple old walled off with small dissection. No evidence of mesenteric, retroperitoneal lymphadenopathy. IMPRESSION AND PLAN: The patient with chronic dialysis, multiple other medical problems, mental health issues, intermediate facility. The patient has a right IJ tunneled hemodialysis Perm-A-Cath with positive blood cultures of gram-positive cocci x 2. The correctional captain is requesting removal of this catheter and placement of new catheter, if possible. Trying to reach family as the patient is unable to give consent in the primary care physician's opinion. Tried to reach family listed on facesheet, but there is no answer yet. If they are agreeable to the procedure, we will remove this catheter and place a new catheter. They are requesting a tunneled catheter, so that TPN can be administered. JOB# [id number] [email or web address]
[2018-07-27 06:12] LABS: % BASOPHILS 0.5 % (0.0-2.0); % EOSINOPHILS 2.1 % (0.0-5.0); % LYMPHOCYTES 16.9 % (20.0-50.0); % MONOCYTES 8.1 % (2.0-10.0); % NEUTROPHILS 72.4 % (40.0-80.0); EOSINOPHILE ABSOLUTE 0.1 Th/cmm (0.1-0.4); HEMATOCRIT 30.3 % (41.0-60); HEMOGLOBIN 10.1 gm/dL (12-16); MEAN CELL VOLUME 88.2 fl (80-99); MEAN CORPUSCULAR HEMOGLOBIN 29.5 pg (27.0-31.0); MEAN CORPUSCULAR HGB CONC 33.4 pg (28.0-36.0); MEAN PLATELET VOLUME 9.6 fl; MONOCYTE ABSOLUTE 0.5 Th/cmm (0.3-1.0); NEUTROPHILE ABSOLUTE 4.4 Th/cmm (1.8-8.0); PLATELET COUNT 232 Th/cmm (150-400); RED BLOOD COUNT 3.44 Mil/cmm (3.80-5.80); RED CELL DISTRIBUTION WIDTH 17.6 % (11.5-20.0)
[2018-07-27 06:21] LABS: ANION GAP 14.4 (7.0-16.0); BUN - UREA NITROGEN 29 mg/dL (7-25); CALCIUM SERUM 9.3 mg/dL (8.6-10.3); CARBON DIOXIDE 26.5 mEq/L (21.0-31.0); CHLORIDE 104 mEq/L (98-107); GLUCOSE 102 mg/dL (70-105); PHOSPHOROUS 3.2 mg/dL (2.5-5.0); POTASSIUM SERUM 3.9 mEq/L (3.5-5.1); SODIUM SERUM 141 mEq/L (136-145)
[2018-07-27 08:02] LABS: CREATININE - SERUM 5.1 mg/dL (0.7-1.3)
[2018-07-27] MEDS: Levothyroxine 0.1 Mg Tab PO SCH (09:11)
[2018-07-27] MEDS: Aspirin 81mg Chewable Tab PO SCH (09:12)
[2018-07-27] MEDS: Multivitamin w/ Minerals Tab PO SCH (09:12)
--- NOTE | 2018-07-27 10:19 | GI Progress Note ---
Subjective - Review of Systems Service Date: 07/27/18 Events since last encounter: No events Subjective: Non verbal Ate 80% Objective - Results Result Diagrams: 07/27/18 05:23 07/27/18 05:23 Recent Labs: Laboratory Last Values WBC 6.0 Th/cmm (4.8-10.8) 07/27/18 05:23 RBC 3.44 Mil/cmm (3.80-5.80) L 07/27/18 05:23 Hgb 10.1 gm/dL (12-16) L 07/27/18 05:23 Hct 30.3 % (41.0-60) L 07/27/18 05:23 MCV 88.2 fl (80-99) 07/27/18 05:23 MCH 29.5 pg (27.0-31.0) 07/27/18 05:23 MCHC Differential 33.4 pg (28.0-36.0) 07/27/18 05:23 RDW 17.6 % (11.5-20.0) 07/27/18 05:23 Plt Count 232 Th/cmm (150-400) 07/27/18 05:23 MPV 9.6 fl 07/27/18 05:23 Neutrophils % 72.4 % (40.0-80.0) 07/27/18 05:23 Lymphocytes % 16.9 % (20.0-50.0) L 07/27/18 05:23 Monocytes % 8.1 % (2.0-10.0) 07/27/18 05:23 Eosinophils % 2.1 % (0.0-5.0) 07/27/18 05:23 Basophils % 0.5 % (0.0-2.0) 07/27/18 05:23 PT 10.1 SECONDS (9.5-11.5) 07/22/18 16:44 INR 0.97 (0.5-1.4) 07/22/18 16:44 PTT (Actin FS) 23.8 SECONDS (26.0-38.0) L 07/22/18 16:44 Sodium 141 mEq/L (136-145) 07/27/18 05:23 Potassium 3.9 mEq/L (3.5-5.1) 07/27/18 05:23 Chloride 104 mEq/L (98-107) 07/27/18 05:23 Carbon Dioxide 26.5 mEq/L (21.0-31.0) 07/27/18 05:23 Anion Gap 14.4 (7.0-16.0) 07/27/18 05:23 BUN 29 mg/dL (7-25) H 07/27/18 05:23 Creatinine 5.1 mg/dL (0.7-1.3) H* 07/27/18 05:23 Est GFR ( Amer) TNP 07/27/18 05:23 Est GFR (Non-Af Amer) TNP 07/27/18 05:23 BUN/Creatinine Ratio 5.7 07/27/18 05:23 Glucose 102 mg/dL (70-105) 07/27/18 05:23 Whole Bld Lactic Acid 1.35 mmol/L (0.60-1.99) 07/23/18 11:30 Calcium 9.3 mg/dL (8.6-10.3) 07/27/18 05:23 Phosphorus 3.2 mg/dL (2.5-5.0) 07/27/18 05:23 Total Bilirubin 0.4 mg/dL (0.3-1.0) 07/25/18 05:40 AST 14 U/L (13-39) 07/25/18 05:40 ALT 9 U/L (7-52) 07/25/18 05:40 Alkaline Phosphatase 37 U/L (34-104) 07/25/18 05:40 Creatine Kinase 21 U/L (30-223) L 07/22/18 16:44 Troponin I 0.04 ng/mL (0.01-0.05) 07/22/18 16:44 Total Protein 6.2 gm/dL (6.0-8.3) 07/25/18 05:40 Albumin 3.2 gm/dL (4.2-5.5) L 07/25/18 05:40 Globulin 3.0 gm/dL 07/25/18 05:40 Albumin/Globulin Ratio 1.1 (1.0-1.8) 07/25/18 05:40 Carcinoembryonic Ag 3.5 ng/mL (0.0-4.7) 07/24/18 06:20 CA 19-9 Antigen 45 U/mL (0-35) H 07/24/18 06:20 Prostate Specific Ag 3.1 ng/mL (0.0-4.0) 07/24/18 06:20 TSH 3.09 uIU/ml (0.34-5.60) 07/22/18 16:44 Urine Source MIDSTREAM 07/22/18 18:14 Urine Color YELLOW 07/22/18 18:14 Urine Clarity HAZY (CLEAR) 07/22/18 18:14 Urine pH 8.5 (4.6 - 8.0) 07/22/18 18:14 Ur Specific [place] 1.015 (1.005-1.030) 07/22/18 18:14 Urine Protein 100 mg/dL (NEGATIVE) H 07/22/18 18:14 Urine Glucose (UA) 250 mg/dL (NEGATIVE) H 07/22/18 18:14 Urine Ketones NEGATIVE mg/dL (NEGATIVE) 07/22/18 18:14 Urine Blood TRACE (NEGATIVE) 07/22/18 18:14 Urine Nitrate NEGATIVE (NEGATIVE) 07/22/18 18:14 Urine Bilirubin NEGATIVE (NEGATIVE) 07/22/18 18:14 Urine Urobilinogen 0.2 E.U./dL (0.2 - 1.0) 07/22/18 18:14 Ur Leukocyte Esterase NEGATIVE (NEGATIVE) 07/22/18 18:14 Urine RBC NONE SEEN /hpf (0-5) 07/22/18 18:14 Urine WBC 6-10 /hpf (0-5) 07/22/18 18:14 Ur Epithelial Cells NONE SEEN /lpf (FEW) 07/22/18 18:14 Urine Bacteria MODERATE /hpf (NONE SEEN) H 07/22/18 18:14 Random Vancomycin 17.3 ug/mL (5.0-40.0) 07/27/18 05:23 Influenza A (Rapid) NEG FOR INF A 07/26/18 05:20 Influenza B (Rapid) NEG FOR INF B 07/26/18 05:20 - Physical Exam Vitals and I&O: Vital Signs Temp 97.3 F 07/27/18 08:05 Pulse 76 07/27/18 09:12 Resp 18 07/27/18 08:05 BP 174/82 07/27/18 09:12 Pulse Ox 99 07/27/18 08:05 Intake & Output 07/26/18 07/27/18 07/27/18 18:59 06:59 18:59 Intake Total 60 Balance 60 Weight (lbs) 78.925 kg 77.292 kg Intake: Oral 60 Other: # Voids 2 # Bowel Movements 2 Stool Characteristics Soft Brown Weight Source Bedscale Bedscale Active Medications: Current Medications Acetaminophen (Tylenol) 325 mg PO Q4HR PRN PRN Reason: Pain Or Fever >100.4 Stop: 09/20/18 20:33 Ascorbic Acid (Vitamin C) 500 mg PO DAILY [facility] Stop: 09/20/18 20:44 Last Admin: 07/27/18 09:11 Dose: 500 mg Aspirin (Aspirin Chewable) 81 mg PO DAILY [facility] Stop: 09/20/18 20:44 Last Admin: 07/27/18 09:12 Dose: 81 mg Carvedilol (Coreg) 6.25 mg PO BID [facility] Stop: 09/24/18 16:59 Last Admin: 07/27/18 09:12 Dose: 6.25 mg Cholecalciferol (Vitamin D3) 2,000 iu PO DAILY [facility] Stop: 09/20/18 22:59 Last Admin: 07/27/18 09:11 Dose: 2,000 iu Cinacalcet (Sensipar) 30 mg PO DAILY [facility] Stop: 09/20/18 22:29 Last Admin: 07/27/18 09:12 Dose: 30 mg Divalproex Sodium (Depakote Dr) 250 mg PO BID [facility]; Protocol Stop: 09/20/18 22:59 Last Admin: 07/27/18 09:11 Dose: 250 mg Famotidine (Pepcid) 20 mg PO DAILY [facility] Stop: 09/20/18 22:29 Last Admin: 07/27/18 09:11 Dose: 20 mg Vancomycin HCl 500 mg/ Sodium (Chloride) 100 mls @ 100 mls/hr IV 1700 [facility] Stop: 07/27/18 21:00 Levofloxacin (Levaquin) 250 mg PO Q48HR [facility] Stop: 09/25/18 15:59 Levothyroxine Sodium (Synthroid) 0.1 mg PO QDAC [facility] Stop: 09/22/18 07:29 Last Admin: 07/27/18 09:11 Dose: 0.1 mg Lorazepam (Ativan) 0.5 mg PO MWF [facility]; Protocol Stop: 09/21/18 08:59 Last Admin: 07/25/18 09:31 Dose: 0.5 mg Losartan Potassium (Cozaar) 25 mg PO DAILY [facility] Stop: 09/25/18 08:59 Last Admin: 07/27/18 09:12 Dose: 25 mg Megestrol Acetate (Megace) 400 mg PO BID [facility] Stop: 09/20/18 20:44 Last Admin: 07/27/18 09:13 Dose: 400 mg Mirtazapine (Remeron) 15 mg PO HS [facility]; Protocol Stop: 09/24/18 22:59 Last Admin: 07/26/18 22:52 Dose: 15 mg Miscellaneous (Vancomycin Iv Per Pharmacy) 1 ea MC PRN [facility] Stop: 09/22/18 20:59 Quetiapine Fumarate (Seroquel) 50 mg PO BID [facility]; Protocol Stop: 09/22/18 20:44 Last Admin: 07/27/18 09:13 Dose: 50 mg Sodium Bicarbonate (Sodium Bicarbonate) 650 mg PO BID [facility]; Protocol Stop: 09/20/18 22:59 Last Admin: 07/27/18 09:11 Dose: 650 mg General: No acute distress Neck: Other (perma cath site clean) Cardiovascular: Regular rate, Normal S1, Normal S2 Lungs: Clear to auscultation Abdomen: Bowel sounds, Soft, no Tender - Procedures Procedures: Procedures Procedure Code Date PERFORMANCE OF URINARY FILTRATION, <6 HRS/DAY [id number] 07/22/18 Assessment/Plan - Assessment Assessment: 1. Decrease oral intake and failure to thrive. 2. Elevated CA 19-9 - Plan Plan: 1. Decrease oral intake and failure to thrive. Better. Cont Remeron 2. Elevated CA 19-9 Trivial elevation. Non specific Recheck in few weeks OPT MRCP
--- NOTE | 2018-07-27 13:25 | Infectious Disease Prog Note ---
Infectious Disease Subjective - Review of Systems Service Date: 07/27/18 Subjective: There is no new change, no fever. Infectious Disease Objective - Results Result Diagrams: 07/27/18 05:23 07/27/18 05:23 Recent Labs: Laboratory Last Values WBC 6.0 Th/cmm (4.8-10.8) 07/27/18 05:23 RBC 3.44 Mil/cmm (3.80-5.80) L 07/27/18 05:23 Hgb 10.1 gm/dL (12-16) L 07/27/18 05:23 Hct 30.3 % (41.0-60) L 07/27/18 05:23 MCV 88.2 fl (80-99) 07/27/18 05:23 MCH 29.5 pg (27.0-31.0) 07/27/18 05:23 MCHC Differential 33.4 pg (28.0-36.0) 07/27/18 05:23 RDW 17.6 % (11.5-20.0) 07/27/18 05:23 Plt Count 232 Th/cmm (150-400) 07/27/18 05:23 MPV 9.6 fl 07/27/18 05:23 Neutrophils % 72.4 % (40.0-80.0) 07/27/18 05:23 Lymphocytes % 16.9 % (20.0-50.0) L 07/27/18 05:23 Monocytes % 8.1 % (2.0-10.0) 07/27/18 05:23 Eosinophils % 2.1 % (0.0-5.0) 07/27/18 05:23 Basophils % 0.5 % (0.0-2.0) 07/27/18 05:23 PT 10.1 SECONDS (9.5-11.5) 07/22/18 16:44 INR 0.97 (0.5-1.4) 07/22/18 16:44 PTT (Actin FS) 23.8 SECONDS (26.0-38.0) L 07/22/18 16:44 Sodium 141 mEq/L (136-145) 07/27/18 05:23 Potassium 3.9 mEq/L (3.5-5.1) 07/27/18 05:23 Chloride 104 mEq/L (98-107) 07/27/18 05:23 Carbon Dioxide 26.5 mEq/L (21.0-31.0) 07/27/18 05:23 Anion Gap 14.4 (7.0-16.0) 07/27/18 05:23 BUN 29 mg/dL (7-25) H 07/27/18 05:23 Creatinine 5.1 mg/dL (0.7-1.3) H* 07/27/18 05:23 Est GFR ( Amer) TNP 07/27/18 05:23 Est GFR (Non-Af Amer) TNP 07/27/18 05:23 BUN/Creatinine Ratio 5.7 07/27/18 05:23 Glucose 102 mg/dL (70-105) 07/27/18 05:23 Whole Bld Lactic Acid 1.35 mmol/L (0.60-1.99) 07/23/18 11:30 Calcium 9.3 mg/dL (8.6-10.3) 07/27/18 05:23 Phosphorus 3.2 mg/dL (2.5-5.0) 07/27/18 05:23 Total Bilirubin 0.4 mg/dL (0.3-1.0) 07/25/18 05:40 AST 14 U/L (13-39) 07/25/18 05:40 ALT 9 U/L (7-52) 07/25/18 05:40 Alkaline Phosphatase 37 U/L (34-104) 07/25/18 05:40 Creatine Kinase 21 U/L (30-223) L 07/22/18 16:44 Troponin I 0.04 ng/mL (0.01-0.05) 07/22/18 16:44 Total Protein 6.2 gm/dL (6.0-8.3) 07/25/18 05:40 Albumin 3.2 gm/dL (4.2-5.5) L 07/25/18 05:40 Globulin 3.0 gm/dL 07/25/18 05:40 Albumin/Globulin Ratio 1.1 (1.0-1.8) 07/25/18 05:40 Carcinoembryonic Ag 3.5 ng/mL (0.0-4.7) 07/24/18 06:20 CA 19-9 Antigen 45 U/mL (0-35) H 07/24/18 06:20 Prostate Specific Ag 3.1 ng/mL (0.0-4.0) 07/24/18 06:20 TSH 3.09 uIU/ml (0.34-5.60) 07/22/18 16:44 Urine Source MIDSTREAM 07/22/18 18:14 Urine Color YELLOW 07/22/18 18:14 Urine Clarity HAZY (CLEAR) 07/22/18 18:14 Urine pH 8.5 (4.6 - 8.0) 07/22/18 18:14 Ur Specific [place] 1.015 (1.005-1.030) 07/22/18 18:14 Urine Protein 100 mg/dL (NEGATIVE) H 07/22/18 18:14 Urine Glucose (UA) 250 mg/dL (NEGATIVE) H 07/22/18 18:14 Urine Ketones NEGATIVE mg/dL (NEGATIVE) 07/22/18 18:14 Urine Blood TRACE (NEGATIVE) 07/22/18 18:14 Urine Nitrate NEGATIVE (NEGATIVE) 07/22/18 18:14 Urine Bilirubin NEGATIVE (NEGATIVE) 07/22/18 18:14 Urine Urobilinogen 0.2 E.U./dL (0.2 - 1.0) 07/22/18 18:14 Ur Leukocyte Esterase NEGATIVE (NEGATIVE) 07/22/18 18:14 Urine RBC NONE SEEN /hpf (0-5) 07/22/18 18:14 Urine WBC 6-10 /hpf (0-5) 07/22/18 18:14 Ur Epithelial Cells NONE SEEN /lpf (FEW) 07/22/18 18:14 Urine Bacteria MODERATE /hpf (NONE SEEN) H 07/22/18 18:14 Random Vancomycin 17.3 ug/mL (5.0-40.0) 07/27/18 05:23 Influenza A (Rapid) NEG FOR INF A 07/26/18 05:20 Influenza B (Rapid) NEG FOR INF B 07/26/18 05:20 - Physical Exam Vitals and I&O: Vital Signs Temp 97.3 F 07/27/18 08:05 Pulse 76 07/27/18 09:12 Resp 18 07/27/18 08:05 BP 174/82 07/27/18 09:12 Pulse Ox 99 07/27/18 08:05 Intake & Output 07/26/18 07/27/18 07/27/18 18:59 06:59 18:59 Intake Total 60 Balance 60 Weight (lbs) 78.925 kg 77.292 kg Intake: Oral 60 Other: # Voids 2 # Bowel Movements 2 Stool Characteristics Soft Brown Weight Source Bedscale Bedscale Active Medications: Current Medications Acetaminophen (Tylenol) 325 mg PO Q4HR PRN PRN Reason: Pain Or Fever >100.4 Stop: 09/20/18 20:33 Ascorbic Acid (Vitamin C) 500 mg PO DAILY [facility] Stop: 09/20/18 20:44 Last Admin: 07/27/18 09:11 Dose: 500 mg Aspirin (Aspirin Chewable) 81 mg PO DAILY [facility] Stop: 09/20/18 20:44 Last Admin: 07/27/18 09:12 Dose: 81 mg Carvedilol (Coreg) 6.25 mg PO BID [facility] Stop: 09/24/18 16:59 Last Admin: 07/27/18 09:12 Dose: 6.25 mg Cholecalciferol (Vitamin D3) 2,000 iu PO DAILY [facility] Stop: 09/20/18 22:59 Last Admin: 07/27/18 09:11 Dose: 2,000 iu Cinacalcet (Sensipar) 30 mg PO DAILY [facility] Stop: 09/20/18 22:29 Last Admin: 07/27/18 09:12 Dose: 30 mg Divalproex Sodium (Depakote Dr) 250 mg PO BID [facility]; Protocol Stop: 09/20/18 22:59 Last Admin: 07/27/18 09:11 Dose: 250 mg Famotidine (Pepcid) 20 mg PO DAILY [facility] Stop: 09/20/18 22:29 Last Admin: 07/27/18 09:11 Dose: 20 mg Vancomycin HCl 500 mg/ Sodium (Chloride) 100 mls @ 100 mls/hr IV 1700 [facility] Stop: 07/27/18 21:00 Levofloxacin (Levaquin) 250 mg PO Q48HR [facility] Stop: 09/25/18 15:59 Levothyroxine Sodium (Synthroid) 0.1 mg PO QDAC [facility] Stop: 09/22/18 07:29 Last Admin: 07/27/18 09:11 Dose: 0.1 mg Lorazepam (Ativan) 0.5 mg PO MWF [facility]; Protocol Stop: 09/21/18 08:59 Last Admin: 07/25/18 09:31 Dose: 0.5 mg Losartan Potassium (Cozaar) 25 mg PO DAILY [facility] Stop: 09/25/18 08:59 Last Admin: 07/27/18 09:12 Dose: 25 mg Megestrol Acetate (Megace) 400 mg PO BID [facility] Stop: 09/20/18 20:44 Last Admin: 07/27/18 09:13 Dose: 400 mg Mirtazapine (Remeron) 15 mg PO HS [facility]; Protocol Stop: 09/24/18 22:59 Last Admin: 07/26/18 22:52 Dose: 15 mg Miscellaneous (Vancomycin Iv Per Pharmacy) 1 ea MC PRN [facility] Stop: 09/22/18 20:59 Quetiapine Fumarate (Seroquel) 50 mg PO BID [facility]; Protocol Stop: 09/22/18 20:44 Last Admin: 07/27/18 09:13 Dose: 50 mg Sodium Bicarbonate (Sodium Bicarbonate) 650 mg PO BID [facility]; Protocol Stop: 09/20/18 22:59 Last Admin: 07/27/18 09:11 Dose: 650 mg General: no acute distress, cachectic HEENT: atraumatic, normocephalic, PERRLA, EOMI Neck: supple, no thyromegaly Cardiovascular: S1S2, regular Lungs: clear to auscultation bilaterally, clear to percussion Abdomen: soft, no tender, no distended, no mass Extremities: no cyanosis, no clubbing, no edema Neurological: awake - Procedures Procedures: Procedures Procedure Code Date PERFORMANCE OF URINARY FILTRATION, <6 HRS/DAY [id number] 07/22/18 Infectious Disease Assmt/Plan - Assessment Assessment: 1. Staphylococcus bacteremia. 2. Pneumonia, left lower lobe pneumonia. 3. Right upper lobe nodule. 4. Hypertension. 5. Anemia. 6. Protein calorie mellitus. 7. Dementia. 8. Hypothyroidism. - Plan Plan: Continue vanco IV and levaquin. Nutritional Asmnt/Malnutr-PDOC - Dietary Evaluation Malnutrition Findings (Please click <Entered> for more info): Nutritional Asmnt/Malnutrition Start: 07/23/18 16: 13 Text: Status: Complete Freq: Protocol: Document 07/23/18 16:18 LCHENG (Rec: 07/23/18 16:45 LCHENG [email or web address]) Nutritional Asmnt/Malnutrition Patient General Information Nutritional Screening High Risk Diagnosis FTT Pertinent Medical Hx/Surgical Hx HTN, DM, CVA/TIA, dyslipidemia , PUD/GERD, ESRD, dementia Subjective Information Pt seen sleeping in bed at time of visit, lunch tray just delivered. Per LORE Kerns who fed pt this morning, RN stated pt consumed 75% of breakfast and ate well. pt has ESRD on dialysis and hx of DM noted. Glucose 209 at admission. Current Diet Order/ Nutrition Support pureed Pertinent Medications vit C, vit D3, synthroid megace, renvela, sodium bicarbonate Pertinent Labs 2/5 K 3.3, Cr 3.4, Glucose 209 , alb 3.3 Nutritional Hx/Data Height 1.7 m Height (Calculated Centimeters) 170.2 Current Weight (lbs) 64.864 kg Weight (Calculated Kilograms) 64.9 Weight (Calculated Grams) 68834.7 [place] Body Weight 148 Body Mass Index (BMI) 22.4 Weight Status Approriate GI Symptoms GI Symptoms None Last BM 2/6 x 3 Difficult in: None Usual diet at home pureed MARIANN CCHO renal at care facility per pt chart Skin Integrity/Comment: skin intact. Current %PO Good (75-100%) Estimated Nutritional Goals BEE in Kcals: Using Current wt Calories/Kcals/Kg 27-32 Kcals Calculated [id number] Protein: Using Current wt Protein g/k.2-1.4 Protein Calculated 78-91 Fluid: ml per MD Nutritional Problem 1. Problem Problem altered nutrition related labs Etiology hyperglycemia, renal dysfunction Signs/Symptoms: Cr 3.4, Glucose 209 Malnutrition Alert Is there a minimum of two criteria No selected? Query Text:Check all the applicable criteria. A minimum of two criteria are recommended for diagnosis of either severe or non-severe malnutrition. Malnutrition Related to Morbid Obesity Malnutrition related to morbid obesity No Intervention/Recommendation Comments 1. Continue with pureed diet as ordered. Assist pt with meals. 2. Recommend to add renal 80g protein and CCHO diet d/t pt on dialysis and hyperglycemia. LORE Kerns notified. Diet updated in the afternoon. 3. Monitor PO intake, wt, labs and skin integrity 4. F/U as moderate risk in 3-5 days, PO check 2/8 Expected Outcomes/Goals Expected Outcomes/Goals 1. PO intake to meet at least 75% of nutritional needs. 2. Wt stability, skin to remain intact, labs to approach WNL.
[2018-07-27] MEDS ORDERED: Vancomycin HCl 500 MG in Sodium Chloride 0.9% 100 ML IV SCH (17:00)
--- NOTE | 2018-07-27 17:16 | Consultation ---
DATE OF CONSULTATION: 07/26/2018 REASON FOR CONSULTATION: Failure to thrive and elevated CA 19-9. HISTORY OF PRESENT ILLNESS: This consult was obtained through the courtesy of Dr. Kwan for this 73-year-old with history of end-stage renal disease, on hemodialysis, hypothyroidism, hypertension and dementia, presented to the hospital for failure to thrive, weight loss and decreased oral intake. The patient has been in the hospital and the Pedro catheter needs to be changed, but family has declined. While in the hospital, he had some lab work done, which showed elevation of CA 19-9. The patient is responsive, but not able to provide any insight into his condition. PAST MEDICAL HISTORY: End-stage renal disease, hemodialysis, hypertension, hypothyroidism, dementia. PAST SURGICAL HISTORY: Negative. SOCIAL HISTORY: Nonsmoker, nonalcoholic, IV drug abuser. FAMILY HISTORY: Noncontributory. ALLERGIES: No known drug allergy. MEDICATIONS: The patient is on Tylenol, vitamin C, aspirin, Coreg, vitamin D3, Sensipar, Depakote, Pepcid, Levaquin, Synthroid, Ativan, Cozaar, Megace, vancomycin, TPN, Seroquel. REVIEW OF SYSTEMS: Unobtainable. PHYSICAL EXAMINATION: GENERAL: The patient is awake, oriented to self. VITAL SIGNS: Blood pressure is 147/79, heart rate 74, respiratory rate 20 and temperature is 98.0. HEAD AND NECK: Pupils reactive to light. Extraocular muscles could not be tested. Oral cavity, dry mucous membrane. NECK: Supple. CHEST: Good air entry. LUNGS: Clear to auscultation. CARDIOVASCULAR: Regular rate and rhythm. No murmur or gallop. ABDOMEN: Soft, positive bowel sounds. Abdomen scaphoid. EXTREMITIES: Lower extremities, no edema. CENTRAL NERVOUS SYSTEM: Unable to evaluate. LABORATORY DATA: White count 8, H and H are 9.8 and 30.1, platelets of 237. PT is normal 10.1 seconds. Chemistry: BUN and creatinine are 29 and 4.7, glucose 122. Liver enzymes are normal. Albumin 3.2. PSA was 3.1. CEA level of 3.5, CA 19-9 was elevated at 45. The patient had a CT of the abdomen and pelvis without IV contrast and it showed distended gallbladder with gallstones, some intraluminal densities fecal impaction, mild rectal wall thickening, mild surrounding inflammation, diverticulosis, urinary bladder wall thickening, prominent prostate. IMPRESSION: A 73-year-old with failure to thrive, elevation of CA 19-9. 1. Failure to thrive, most likely this is a gradual deterioration especially with worsening kidney function. We will encourage the patient for p.o. intake. We will add Remeron and if family is to consider PEG, it will be entertained. 2. Elevation of CA 19-9. This is very nonspecific, it was 45, upper limit of normal 35. It could be elevated in some biliary disease as it does not necessarily reflect cholangiocarcinoma or pancreatic tumor. At this time, if the family is to decline any further workup, there is no use for that, but on the other hand, if the family is going to go back on dialysis, we can do a triphasic CT scan prior to dialysis for further evaluation and follow on that. Other medical problems such as hypertension, hypothyroidism, end-stage renal disease etc., as per Dr. Kwan. Thank you, Dr. Kwan for allowing me to participate in the care of the patient. If you have any further questions, please let me know. JOB# [id number]
--- NOTE | 2018-07-27 21:36 | General Progress Note ---
Subjective - Review of Systems Service Date: 07/27/18 Subjective: Patient seen and examined doing better eating better afebrile no new concern reported Objective - Results Result Diagrams: 07/27/18 05:23 07/27/18 05:23 Recent Labs: Laboratory Last Values WBC 6.0 Th/cmm (4.8-10.8) 07/27/18 05:23 RBC 3.44 Mil/cmm (3.80-5.80) L 07/27/18 05:23 Hgb 10.1 gm/dL (12-16) L 07/27/18 05:23 Hct 30.3 % (41.0-60) L 07/27/18 05:23 MCV 88.2 fl (80-99) 07/27/18 05:23 MCH 29.5 pg (27.0-31.0) 07/27/18 05:23 MCHC Differential 33.4 pg (28.0-36.0) 07/27/18 05:23 RDW 17.6 % (11.5-20.0) 07/27/18 05:23 Plt Count 232 Th/cmm (150-400) 07/27/18 05:23 MPV 9.6 fl 07/27/18 05:23 Neutrophils % 72.4 % (40.0-80.0) 07/27/18 05:23 Lymphocytes % 16.9 % (20.0-50.0) L 07/27/18 05:23 Monocytes % 8.1 % (2.0-10.0) 07/27/18 05:23 Eosinophils % 2.1 % (0.0-5.0) 07/27/18 05:23 Basophils % 0.5 % (0.0-2.0) 07/27/18 05:23 PT 10.1 SECONDS (9.5-11.5) 07/22/18 16:44 INR 0.97 (0.5-1.4) 07/22/18 16:44 PTT (Actin FS) 23.8 SECONDS (26.0-38.0) L 07/22/18 16:44 Sodium 141 mEq/L (136-145) 07/27/18 05:23 Potassium 3.9 mEq/L (3.5-5.1) 07/27/18 05:23 Chloride 104 mEq/L (98-107) 07/27/18 05:23 Carbon Dioxide 26.5 mEq/L (21.0-31.0) 07/27/18 05:23 Anion Gap 14.4 (7.0-16.0) 07/27/18 05:23 BUN 29 mg/dL (7-25) H 07/27/18 05:23 Creatinine 5.1 mg/dL (0.7-1.3) H* 07/27/18 05:23 Est GFR ( Amer) TNP 07/27/18 05:23 Est GFR (Non-Af Amer) TNP 07/27/18 05:23 BUN/Creatinine Ratio 5.7 07/27/18 05:23 Glucose 102 mg/dL (70-105) 07/27/18 05:23 Whole Bld Lactic Acid 1.35 mmol/L (0.60-1.99) 07/23/18 11:30 Calcium 9.3 mg/dL (8.6-10.3) 07/27/18 05:23 Phosphorus 3.2 mg/dL (2.5-5.0) 07/27/18 05:23 Total Bilirubin 0.4 mg/dL (0.3-1.0) 07/25/18 05:40 AST 14 U/L (13-39) 07/25/18 05:40 ALT 9 U/L (7-52) 07/25/18 05:40 Alkaline Phosphatase 37 U/L (34-104) 07/25/18 05:40 Creatine Kinase 21 U/L (30-223) L 07/22/18 16:44 Troponin I 0.04 ng/mL (0.01-0.05) 07/22/18 16:44 Total Protein 6.2 gm/dL (6.0-8.3) 07/25/18 05:40 Albumin 3.2 gm/dL (4.2-5.5) L 07/25/18 05:40 Globulin 3.0 gm/dL 07/25/18 05:40 Albumin/Globulin Ratio 1.1 (1.0-1.8) 07/25/18 05:40 Carcinoembryonic Ag 3.5 ng/mL (0.0-4.7) 07/24/18 06:20 CA 19-9 Antigen 45 U/mL (0-35) H 07/24/18 06:20 Prostate Specific Ag 3.1 ng/mL (0.0-4.0) 07/24/18 06:20 TSH 3.09 uIU/ml (0.34-5.60) 07/22/18 16:44 Urine Source MIDSTREAM 07/22/18 18:14 Urine Color YELLOW 07/22/18 18:14 Urine Clarity HAZY (CLEAR) 07/22/18 18:14 Urine pH 8.5 (4.6 - 8.0) 07/22/18 18:14 Ur Specific [place] 1.015 (1.005-1.030) 07/22/18 18:14 Urine Protein 100 mg/dL (NEGATIVE) H 07/22/18 18:14 Urine Glucose (UA) 250 mg/dL (NEGATIVE) H 07/22/18 18:14 Urine Ketones NEGATIVE mg/dL (NEGATIVE) 07/22/18 18:14 Urine Blood TRACE (NEGATIVE) 07/22/18 18:14 Urine Nitrate NEGATIVE (NEGATIVE) 07/22/18 18:14 Urine Bilirubin NEGATIVE (NEGATIVE) 07/22/18 18:14 Urine Urobilinogen 0.2 E.U./dL (0.2 - 1.0) 07/22/18 18:14 Ur Leukocyte Esterase NEGATIVE (NEGATIVE) 07/22/18 18:14 Urine RBC NONE SEEN /hpf (0-5) 07/22/18 18:14 Urine WBC 6-10 /hpf (0-5) 07/22/18 18:14 Ur Epithelial Cells NONE SEEN /lpf (FEW) 07/22/18 18:14 Urine Bacteria MODERATE /hpf (NONE SEEN) H 07/22/18 18:14 Random Vancomycin 17.3 ug/mL (5.0-40.0) 07/27/18 05:23 Influenza A (Rapid) NEG FOR INF A 07/26/18 05:20 Influenza B (Rapid) NEG FOR INF B 07/26/18 05:20 - Physical Exam Vitals and I&O: Vital Signs Temp 96.7 F 07/27/18 20:00 Pulse 79 07/27/18 20:18 Resp 18 07/27/18 20:18 BP 108/58 07/27/18 20:00 Pulse Ox 100 07/27/18 20:18 Intake & Output 07/27/18 07/27/18 07/28/18 06:59 18:59 06:59 Intake Total 510 Output Total 2 Balance 508 Weight (lbs) 78.925 kg 77.337 kg Intake: Intake, IV Amount 100 Vancomycin HCl 500 mg In 100 Sodium Chloride 0.9% 100 ml @ 100 mls/hr IV 1700 [facility] Rx#:[id number] Oral 410 Output: Urine/Stool Mix 2 Other: # Voids 2 # Bowel Movements 2 Stool Characteristics Soft Soft Brown Liquid Brown Weight Source Bedscale Bedscale Active Medications: Current Medications Acetaminophen (Tylenol) 325 mg PO Q4HR PRN PRN Reason: Pain Or Fever >100.4 Stop: 09/20/18 20:33 Ascorbic Acid (Vitamin C) 500 mg PO DAILY [facility] Stop: 09/20/18 20:44 Last Admin: 07/27/18 09:11 Dose: 500 mg Aspirin (Aspirin Chewable) 81 mg PO DAILY [facility] Stop: 09/20/18 20:44 Last Admin: 07/27/18 09:12 Dose: 81 mg Carvedilol (Coreg) 6.25 mg PO BID [facility] Stop: 09/24/18 16:59 Last Admin: 07/27/18 16:46 Dose: 6.25 mg Cholecalciferol (Vitamin D3) 2,000 iu PO DAILY [facility] Stop: 09/20/18 22:59 Last Admin: 07/27/18 09:11 Dose: 2,000 iu Cinacalcet (Sensipar) 30 mg PO DAILY [facility] Stop: 09/20/18 22:29 Last Admin: 07/27/18 09:12 Dose: 30 mg Divalproex Sodium (Depakote Dr) 250 mg PO BID [facility]; Protocol Stop: 09/20/18 22:59 Last Admin: 07/27/18 16:47 Dose: 250 mg Famotidine (Pepcid) 20 mg PO DAILY [facility] Stop: 09/20/18 22:29 Last Admin: 07/27/18 09:11 Dose: 20 mg Levofloxacin (Levaquin) 250 mg PO Q48HR [facility] Stop: 09/25/18 15:59 Last Admin: 07/27/18 16:46 Dose: 250 mg Levothyroxine Sodium (Synthroid) 0.1 mg PO QDAC [facility] Stop: 09/22/18 07:29 Last Admin: 07/27/18 09:11 Dose: 0.1 mg Lorazepam (Ativan) 0.5 mg PO MWF [facility]; Protocol Stop: 09/21/18 08:59 Last Admin: 07/25/18 09:31 Dose: 0.5 mg Losartan Potassium (Cozaar) 25 mg PO DAILY [facility] Stop: 09/25/18 08:59 Last Admin: 07/27/18 09:12 Dose: 25 mg Megestrol Acetate (Megace) 400 mg PO BID [facility] Stop: 09/20/18 20:44 Last Admin: 07/27/18 16:47 Dose: 400 mg Mirtazapine (Remeron) 15 mg PO HS [facility]; Protocol Stop: 09/24/18 22:59 Last Admin: 07/27/18 21:27 Dose: 15 mg Miscellaneous (Vancomycin Iv Per Pharmacy) 1 ea MC PRN [facility] Stop: 09/22/18 20:59 Quetiapine Fumarate (Seroquel) 50 mg PO BID [facility]; Protocol Stop: 09/22/18 20:44 Last Admin: 07/27/18 16:46 Dose: 50 mg Sodium Bicarbonate (Sodium Bicarbonate) 650 mg PO BID [facility]; Protocol Stop: 09/20/18 22:59 Last Admin: 07/27/18 16:47 Dose: 650 mg General: No acute distress Neck: Other (perma cath site clean) Cardiovascular: Regular rate, Normal S1, Normal S2 Lungs: Clear to auscultation Abdomen: Bowel sounds, Soft, no Tender - Procedures Procedures: Procedures Procedure Code Date PERFORMANCE OF URINARY FILTRATION, <6 HRS/DAY [id number] 07/22/18 Assessment/Plan - Assessment Assessment: Coagulase negative Staph bacteremia Elevated CA 19-9 Failure to thrive Lethargy slowly improving ESRD on HD Dysphagia Mental health disorder - Plan Plan: DC Vanco if ID agrees Patient eating better no plan for TPN Coagulase negative staph bacetermia. will continue with current perma cath if nephro agrees. Per GI no further inpatient work up for elevated CA 19 9 PT OT DC plan back to [facility] tomorrow Nutritional Asmnt/Malnutr-PDOC - Dietary Evaluation Malnutrition Findings (Please click <Entered> for more info): Nutritional Asmnt/Malnutrition Start: 07/23/18 16: 13 Text: Status: Complete Freq: Protocol: Document 07/23/18 16:18 LCHENG (Rec: 07/23/18 16:45 [email or web address] [email or web address]) Nutritional Asmnt/Malnutrition Patient General Information Nutritional Screening High Risk Diagnosis FTT Pertinent Medical Hx/Surgical Hx HTN, DM, CVA/TIA, dyslipidemia , PUD/GERD, ESRD, dementia Subjective Information Pt seen sleeping in bed at time of visit, lunch tray just delivered. Per LORE Kerns who fed pt this morning, RN stated pt consumed 75% of breakfast and ate well. pt has ESRD on dialysis and hx of DM noted. Glucose 209 at admission. Current Diet Order/ Nutrition Support pureed Pertinent Medications vit C, vit D3, synthroid megace, renvela, sodium bicarbonate Pertinent Labs 07/22 K 3.3, Cr 3.4, Glucose 209 , alb 3.3 Nutritional Hx/Data Height 1.7 m Height (Calculated Centimeters) 170.2 Current Weight (lbs) 64.864 kg Weight (Calculated Kilograms) 64.9 Weight (Calculated Grams) 13004.7 [place] Body Weight 148 Body Mass Index (BMI) 22.4 Weight Status Approriate GI Symptoms GI Symptoms None Last BM 2/6 x 3 Difficult in: None Usual diet at home pureed [facility] CCHO renal at care facility per pt chart Skin Integrity/Comment: skin intact. Current %PO Good (75-100%) Estimated Nutritional Goals BEE in Kcals: Using Current wt Calories/Kcals/Kg 27-32 Kcals Calculated 8853-2330 Protein: Using Current wt Protein g/k.2-1.4 Protein Calculated 78-91 Fluid: ml per MD Nutritional Problem 1. Problem Problem altered nutrition related labs Etiology hyperglycemia, renal dysfunction Signs/Symptoms: Cr 3.4, Glucose 209 Malnutrition Alert Is there a minimum of two criteria No selected? Query Text:Check all the applicable criteria. A minimum of two criteria are recommended for diagnosis of either severe or non-severe malnutrition. Malnutrition Related to Morbid Obesity Malnutrition related to morbid obesity No Intervention/Recommendation Comments 1. Continue with pureed diet as ordered. Assist pt with meals. 2. Recommend to add renal 80g protein and CCHO diet d/t pt on dialysis and hyperglycemia. LORE Kerns notified. Diet updated in the afternoon. 3. Monitor PO intake, wt, labs and skin integrity 4. F/U as moderate risk in 3-5 days, PO check 2/8 Expected Outcomes/Goals Expected Outcomes/Goals 1. PO intake to meet at least 75% of nutritional needs. 2. Wt stability, skin to remain intact, labs to approach WNL.
[2018-07-28] MEDS: Levothyroxine 0.1 Mg Tab PO SCH (06:38)
[2018-07-28 06:42] LABS: % BASOPHILS 0.2 % (0.0-2.0); % EOSINOPHILS 1.8 % (0.0-5.0); % LYMPHOCYTES 20.5 % (20.0-50.0); % MONOCYTES 8.4 % (2.0-10.0); % NEUTROPHILS 69.1 % (40.0-80.0); EOSINOPHILE ABSOLUTE 0.1 Th/cmm (0.1-0.4); HEMOGLOBIN 9.6 gm/dL (12-16); LYMPHOCYTE ABSOLUTE 1.4 Th/cmm (1.5-3.0); MEAN CORPUSCULAR HEMOGLOBIN 29.3 pg (27.0-31.0); MEAN PLATELET VOLUME 9.3 fl; MONOCYTE ABSOLUTE 0.6 Th/cmm (0.3-1.0); NEUTROPHILE ABSOLUTE 4.9 Th/cmm (1.8-8.0); PLATELET COUNT 233 Th/cmm (150-400); RED BLOOD COUNT 3.26 Mil/cmm (3.80-5.80); RED CELL DISTRIBUTION WIDTH 17.2 % (11.5-20.0)
[2018-07-28 06:57] LABS: BUN - UREA NITROGEN 44 mg/dL (7-25); CALCIUM SERUM 9.4 mg/dL (8.6-10.3); CARBON DIOXIDE 27.3 mEq/L (21.0-31.0); CHLORIDE 104 mEq/L (98-107); GLUCOSE 99 mg/dL (70-105); POTASSIUM SERUM 4.3 mEq/L (3.5-5.1); SODIUM SERUM 142 mEq/L (136-145)
[2018-07-28 07:27] LABS: CREATININE - SERUM 6.6 mg/dL (0.7-1.3)
--- NOTE | 2018-07-28 08:33 | GI Progress Note ---
Subjective - Review of Systems Service Date: 07/28/18 Subjective: Eating, albeit slowly Objective - Results Result Diagrams: 07/28/18 05:50 07/28/18 05:50 Recent Labs: Laboratory Last Values WBC 7.0 Th/cmm (4.8-10.8) 07/28/18 05:50 RBC 3.26 Mil/cmm (3.80-5.80) L 07/28/18 05:50 Hgb 9.6 gm/dL (12-16) L 07/28/18 05:50 Hct 29.0 % (41.0-60) L 07/28/18 05:50 MCV 89.0 fl (80-99) 07/28/18 05:50 MCH 29.3 pg (27.0-31.0) 07/28/18 05:50 MCHC Differential 33.0 pg (28.0-36.0) 07/28/18 05:50 RDW 17.2 % (11.5-20.0) 07/28/18 05:50 Plt Count 233 Th/cmm (150-400) 07/28/18 05:50 MPV 9.3 fl 07/28/18 05:50 Neutrophils % 69.1 % (40.0-80.0) 07/28/18 05:50 Lymphocytes % 20.5 % (20.0-50.0) 07/28/18 05:50 Monocytes % 8.4 % (2.0-10.0) 07/28/18 05:50 Eosinophils % 1.8 % (0.0-5.0) 07/28/18 05:50 Basophils % 0.2 % (0.0-2.0) 07/28/18 05:50 PT 10.1 SECONDS (9.5-11.5) 07/22/18 16:44 INR 0.97 (0.5-1.4) 07/22/18 16:44 PTT (Actin FS) 23.8 SECONDS (26.0-38.0) L 07/22/18 16:44 Sodium 142 mEq/L (136-145) 07/28/18 05:50 Potassium 4.3 mEq/L (3.5-5.1) 07/28/18 05:50 Chloride 104 mEq/L (98-107) 07/28/18 05:50 Carbon Dioxide 27.3 mEq/L (21.0-31.0) 07/28/18 05:50 Anion Gap 15.0 (7.0-16.0) 07/28/18 05:50 BUN 44 mg/dL (7-25) H 07/28/18 05:50 Creatinine 6.6 mg/dL (0.7-1.3) H* 07/28/18 05:50 Est GFR ( Amer) TNP 07/28/18 05:50 Est GFR (Non-Af Amer) TNP 07/28/18 05:50 BUN/Creatinine Ratio 6.7 07/28/18 05:50 Glucose 99 mg/dL (70-105) 07/28/18 05:50 Whole Bld Lactic Acid 1.35 mmol/L (0.60-1.99) 07/23/18 11:30 Calcium 9.4 mg/dL (8.6-10.3) 07/28/18 05:50 Phosphorus 4.0 mg/dL (2.5-5.0) 07/28/18 05:50 Total Bilirubin 0.4 mg/dL (0.3-1.0) 07/25/18 05:40 AST 14 U/L (13-39) 07/25/18 05:40 ALT 9 U/L (7-52) 07/25/18 05:40 Alkaline Phosphatase 37 U/L (34-104) 07/25/18 05:40 Creatine Kinase 21 U/L (30-223) L 07/22/18 16:44 Troponin I 0.04 ng/mL (0.01-0.05) 07/22/18 16:44 Total Protein 6.2 gm/dL (6.0-8.3) 07/25/18 05:40 Albumin 3.2 gm/dL (4.2-5.5) L 07/25/18 05:40 Globulin 3.0 gm/dL 07/25/18 05:40 Albumin/Globulin Ratio 1.1 (1.0-1.8) 07/25/18 05:40 Carcinoembryonic Ag 3.5 ng/mL (0.0-4.7) 07/24/18 06:20 CA 19-9 Antigen 45 U/mL (0-35) H 07/24/18 06:20 Prostate Specific Ag 3.1 ng/mL (0.0-4.0) 07/24/18 06:20 TSH 3.09 uIU/ml (0.34-5.60) 07/22/18 16:44 Urine Source MIDSTREAM 07/22/18 18:14 Urine Color YELLOW 07/22/18 18:14 Urine Clarity HAZY (CLEAR) 07/22/18 18:14 Urine pH 8.5 (4.6 - 8.0) 07/22/18 18:14 Ur Specific [place] 1.015 (1.005-1.030) 07/22/18 18:14 Urine Protein 100 mg/dL (NEGATIVE) H 07/22/18 18:14 Urine Glucose (UA) 250 mg/dL (NEGATIVE) H 07/22/18 18:14 Urine Ketones NEGATIVE mg/dL (NEGATIVE) 07/22/18 18:14 Urine Blood TRACE (NEGATIVE) 07/22/18 18:14 Urine Nitrate NEGATIVE (NEGATIVE) 07/22/18 18:14 Urine Bilirubin NEGATIVE (NEGATIVE) 07/22/18 18:14 Urine Urobilinogen 0.2 E.U./dL (0.2 - 1.0) 07/22/18 18:14 Ur Leukocyte Esterase NEGATIVE (NEGATIVE) 07/22/18 18:14 Urine RBC NONE SEEN /hpf (0-5) 07/22/18 18:14 Urine WBC 6-10 /hpf (0-5) 07/22/18 18:14 Ur Epithelial Cells NONE SEEN /lpf (FEW) 07/22/18 18:14 Urine Bacteria MODERATE /hpf (NONE SEEN) H 07/22/18 18:14 Random Vancomycin 17.3 ug/mL (5.0-40.0) 07/27/18 05:23 Influenza A (Rapid) NEG FOR INF A 07/26/18 05:20 Influenza B (Rapid) NEG FOR INF B 07/26/18 05:20 - Physical Exam Vitals and I&O: Vital Signs Temp 97.9 F 07/28/18 04:00 Pulse 62 07/28/18 07:25 Resp 18 07/28/18 07:25 BP 120/56 07/28/18 04:00 Pulse Ox 96 07/28/18 07:25 Intake & Output 07/27/18 07/28/1819 18:59 06:59 18:59 Intake Total 510 50 Output Total 2 Balance 508 50 Weight (lbs) 77.337 kg 77.111 kg Intake: Intake, IV Amount 100 Vancomycin HCl 500 mg In 100 Sodium Chloride 0.9% 100 ml @ 100 mls/hr IV 1700 [facility] Rx#:[id number] Oral 410 50 Output: Urine/Stool Mix 2 Other: # Voids 2 # Bowel Movements 2 Stool Characteristics Soft Liquid Brown Weight Source Bedscale Bedscale Active Medications: Current Medications Acetaminophen (Tylenol) 325 mg PO Q4HR PRN PRN Reason: Pain Or Fever >100.4 Stop: 09/20/18 20:33 Ascorbic Acid (Vitamin C) 500 mg PO DAILY [facility] Stop: 09/20/18 20:44 Last Admin: 07/27/18 09:11 Dose: 500 mg Aspirin (Aspirin Chewable) 81 mg PO DAILY [facility] Stop: 09/20/18 20:44 Last Admin: 07/27/18 09:12 Dose: 81 mg Carvedilol (Coreg) 6.25 mg PO BID [facility] Stop: 09/24/18 16:59 Last Admin: 07/27/18 16:46 Dose: 6.25 mg Cholecalciferol (Vitamin D3) 2,000 iu PO DAILY [facility] Stop: 09/20/18 22:59 Last Admin: 07/27/18 09:11 Dose: 2,000 iu Cinacalcet (Sensipar) 30 mg PO DAILY [facility] Stop: 09/20/18 22:29 Last Admin: 07/27/18 09:12 Dose: 30 mg Divalproex Sodium (Depakote Dr) 250 mg PO BID [facility]; Protocol Stop: 09/20/18 22:59 Last Admin: 07/27/18 16:47 Dose: 250 mg Famotidine (Pepcid) 20 mg PO DAILY [facility] Stop: 09/20/18 22:29 Last Admin: 07/27/18 09:11 Dose: 20 mg Levofloxacin (Levaquin) 250 mg PO Q48HR [facility] Stop: 09/25/18 15:59 Last Admin: 07/27/18 16:46 Dose: 250 mg Levothyroxine Sodium (Synthroid) 0.1 mg PO QDAC [facility] Stop: 09/22/18 07:29 Last Admin: 02/11/19 06:38 Dose: 0.1 mg Lorazepam (Ativan) 0.5 mg PO MWF [facility]; Protocol Stop: 09/21/18 08:59 Last Admin: 07/25/18 09:31 Dose: 0.5 mg Losartan Potassium (Cozaar) 25 mg PO DAILY [facility] Stop: 09/25/18 08:59 Last Admin: 07/27/18 09:12 Dose: 25 mg Megestrol Acetate (Megace) 400 mg PO BID [facility] Stop: 09/20/18 20:44 Last Admin: 07/27/18 16:47 Dose: 400 mg Mirtazapine (Remeron) 15 mg PO HS [facility]; Protocol Stop: 09/24/18 22:59 Last Admin: 07/27/18 21:27 Dose: 15 mg Miscellaneous (Vancomycin Iv Per Pharmacy) 1 ea [facility] PRN [facility] Stop: 09/22/18 20:59 Quetiapine Fumarate (Seroquel) 50 mg PO BID [facility]; Protocol Stop: 09/22/18 20:44 Last Admin: 07/27/18 16:46 Dose: 50 mg Sodium Bicarbonate (Sodium Bicarbonate) 650 mg PO BID [facility]; Protocol Stop: 09/20/18 22:59 Last Admin: 07/27/18 16:47 Dose: 650 mg General: Alert, No acute distress HEENT: Atraumatic Neck: Other (perma cath site clean) Cardiovascular: Regular rate Abdomen: Bowel sounds, Soft, no Tender, no Hepatomegaly, no Splenomegaly, no Distended, no Rebound, no Mass Extremities: no Clubbing Skin: no Rash - Procedures Procedures: Procedures Procedure Code Date PERFORMANCE OF URINARY FILTRATION, <6 HRS/DAY [id number] 07/22/18 Assessment/Plan - Assessment Assessment: 1. Decrease oral intake and failure to thrive. 2. Elevated CA 19-9 Plan: 1. Decrease oral intake and failure to thrive. Better. Cont Remeron 2. Elevated CA 19-9 Trivial elevation. Non specific Recheck in few weeks OPT MRCP recommended GI to see intermittently, please call with any questions.
[2018-07-28] MEDS: Multivitamin w/ Minerals Tab PO SCH (10:52)
[2018-07-28] MEDS: Aspirin 81mg Chewable Tab PO SCH (10:53)
--- NOTE | 2018-07-28 11:58 | General Progress Note ---
Subjective - Review of Systems Service Date: 07/28/18 Subjective: Patient seen and examined doing better eating better afebrile no new concern reported Objective - Results Result Diagrams: 07/28/18 05:50 07/28/18 05:50 Recent Labs: Laboratory Last Values WBC 7.0 Th/cmm (4.8-10.8) 07/28/18 05:50 RBC 3.26 Mil/cmm (3.80-5.80) L 07/28/18 05:50 Hgb 9.6 gm/dL (12-16) L 07/28/18 05:50 Hct 29.0 % (41.0-60) L 07/28/18 05:50 MCV 89.0 fl (80-99) 07/28/18 05:50 MCH 29.3 pg (27.0-31.0) 07/28/18 05:50 MCHC Differential 33.0 pg (28.0-36.0) 07/28/18 05:50 RDW 17.2 % (11.5-20.0) 07/28/18 05:50 Plt Count 233 Th/cmm (150-400) 07/28/18 05:50 MPV 9.3 fl 07/28/18 05:50 Neutrophils % 69.1 % (40.0-80.0) 07/28/18 05:50 Lymphocytes % 20.5 % (20.0-50.0) 07/28/18 05:50 Monocytes % 8.4 % (2.0-10.0) 07/28/18 05:50 Eosinophils % 1.8 % (0.0-5.0) 07/28/18 05:50 Basophils % 0.2 % (0.0-2.0) 07/28/18 05:50 PT 10.1 SECONDS (9.5-11.5) 07/22/18 16:44 INR 0.97 (0.5-1.4) 07/22/18 16:44 PTT (Actin FS) 23.8 SECONDS (26.0-38.0) L 07/22/18 16:44 Sodium 142 mEq/L (136-145) 07/28/18 05:50 Potassium 4.3 mEq/L (3.5-5.1) 07/28/18 05:50 Chloride 104 mEq/L (98-107) 07/28/18 05:50 Carbon Dioxide 27.3 mEq/L (21.0-31.0) 07/28/18 05:50 Anion Gap 15.0 (7.0-16.0) 07/28/18 05:50 BUN 44 mg/dL (7-25) H 07/28/18 05:50 Creatinine 6.6 mg/dL (0.7-1.3) H* 07/28/18 05:50 Est GFR ( Amer) TNP 07/28/18 05:50 Est GFR (Non-Af Amer) TNP 07/28/18 05:50 BUN/Creatinine Ratio 6.7 07/28/18 05:50 Glucose 99 mg/dL (70-105) 07/28/18 05:50 Whole Bld Lactic Acid 1.35 mmol/L (0.60-1.99) 07/23/18 11:30 Calcium 9.4 mg/dL (8.6-10.3) 07/28/18 05:50 Phosphorus 4.0 mg/dL (2.5-5.0) 07/28/18 05:50 Total Bilirubin 0.4 mg/dL (0.3-1.0) 07/25/18 05:40 AST 14 U/L (13-39) 07/25/18 05:40 ALT 9 U/L (7-52) 07/25/18 05:40 Alkaline Phosphatase 37 U/L (34-104) 07/25/18 05:40 Creatine Kinase 21 U/L (30-223) L 07/22/18 16:44 Troponin I 0.04 ng/mL (0.01-0.05) 07/22/18 16:44 Total Protein 6.2 gm/dL (6.0-8.3) 07/25/18 05:40 Albumin 3.2 gm/dL (4.2-5.5) L 07/25/18 05:40 Globulin 3.0 gm/dL 07/25/18 05:40 Albumin/Globulin Ratio 1.1 (1.0-1.8) 07/25/18 05:40 Carcinoembryonic Ag 3.5 ng/mL (0.0-4.7) 07/24/18 06:20 CA 19-9 Antigen 45 U/mL (0-35) H 07/24/18 06:20 Prostate Specific Ag 3.1 ng/mL (0.0-4.0) 07/24/18 06:20 TSH 3.09 uIU/ml (0.34-5.60) 07/22/18 16:44 Urine Source MIDSTREAM 07/22/18 18:14 Urine Color YELLOW 07/22/18 18:14 Urine Clarity HAZY (CLEAR) 07/22/18 18:14 Urine pH 8.5 (4.6 - 8.0) 07/22/18 18:14 Ur Specific [place] 1.015 (1.005-1.030) 07/22/18 18:14 Urine Protein 100 mg/dL (NEGATIVE) H 07/22/18 18:14 Urine Glucose (UA) 250 mg/dL (NEGATIVE) H 07/22/18 18:14 Urine Ketones NEGATIVE mg/dL (NEGATIVE) 07/22/18 18:14 Urine Blood TRACE (NEGATIVE) 07/22/18 18:14 Urine Nitrate NEGATIVE (NEGATIVE) 07/22/18 18:14 Urine Bilirubin NEGATIVE (NEGATIVE) 07/22/18 18:14 Urine Urobilinogen 0.2 E.U./dL (0.2 - 1.0) 07/22/18 18:14 Ur Leukocyte Esterase NEGATIVE (NEGATIVE) 07/22/18 18:14 Urine RBC NONE SEEN /hpf (0-5) 07/22/18 18:14 Urine WBC 6-10 /hpf (0-5) 07/22/18 18:14 Ur Epithelial Cells NONE SEEN /lpf (FEW) 07/22/18 18:14 Urine Bacteria MODERATE /hpf (NONE SEEN) H 07/22/18 18:14 Random Vancomycin 19.0 ug/mL (5.0-40.0) 07/28/18 05:50 Influenza A (Rapid) NEG FOR INF A 07/26/18 05:20 Influenza B (Rapid) NEG FOR INF B 07/26/18 05:20 - Physical Exam Vitals and I&O: Vital Signs Temp 98.1 F 07/28/18 08:00 Pulse 71 07/28/18 08:00 Resp 18 07/28/18 08:00 BP 140/77 07/28/18 08:00 Pulse Ox 100 07/28/18 08:00 Intake & Output 07/27/18 07/28/18 07/28/18 18:59 06:59 18:59 Intake Total 510 50 Output Total 2 Balance 508 50 Weight (lbs) 77.337 kg 77.111 kg Intake: Intake, IV Amount 100 Vancomycin HCl 500 mg In 100 Sodium Chloride 0.9% 100 ml @ 100 mls/hr IV 1700 [facility] Rx#:[id number] Oral 410 50 Output: Urine/Stool Mix 2 Other: # Voids 2 # Bowel Movements 2 Stool Characteristics Soft Liquid Brown Weight Source Bedscale Bedscale Active Medications: Current Medications Acetaminophen (Tylenol) 325 mg PO Q4HR PRN PRN Reason: Pain Or Fever >100.4 Stop: 09/20/18 20:33 Ascorbic Acid (Vitamin C) 500 mg PO DAILY [facility] Stop: 09/20/18 20:44 Last Admin: 07/28/18 10:52 Dose: 500 mg Aspirin (Aspirin Chewable) 81 mg PO DAILY [facility] Stop: 09/20/18 20:44 Last Admin: 07/28/18 10:53 Dose: 81 mg Carvedilol (Coreg) 6.25 mg PO BID [facility] Stop: 09/24/18 16:59 Last Admin: 07/27/18 16:46 Dose: 6.25 mg Cholecalciferol (Vitamin D3) 2,000 iu PO DAILY [facility] Stop: 09/20/18 22:59 Last Admin: 07/28/18 10:53 Dose: 2,000 iu Cinacalcet (Sensipar) 30 mg PO DAILY [facility] Stop: 09/20/18 22:29 Last Admin: 07/28/18 10:53 Dose: 30 mg Divalproex Sodium (Depakote Dr) 250 mg PO BID [facility]; Protocol Stop: 09/20/18 22:59 Last Admin: 07/28/18 10:53 Dose: 250 mg Famotidine (Pepcid) 20 mg PO DAILY [facility] Stop: 09/20/18 22:29 Last Admin: 07/28/18 10:53 Dose: 20 mg Vancomycin HCl 1 gm/ Sodium (Chloride) 250 mls @ 165 mls/hr IV ONCE ONE Stop: 07/28/18 22:30 Levofloxacin (Levaquin) 250 mg PO Q48HR [facility] Stop: 09/25/18 15:59 Last Admin: 07/27/18 16:46 Dose: 250 mg Levothyroxine Sodium (Synthroid) 0.1 mg PO QDAC [facility] Stop: 09/22/18 07:29 Last Admin: 07/28/18 06:38 Dose: 0.1 mg Lorazepam (Ativan) 0.5 mg PO MWF [facility]; Protocol Stop: 09/21/18 08:59 Last Admin: 07/28/18 10:52 Dose: 0.5 mg Losartan Potassium (Cozaar) 25 mg PO DAILY [facility] Stop: 09/25/18 08:59 Last Admin: 07/27/18 09:12 Dose: 25 mg Megestrol Acetate (Megace) 400 mg PO BID [facility] Stop: 09/20/18 20:44 Last Admin: 07/28/18 10:52 Dose: 400 mg Mirtazapine (Remeron) 15 mg PO HS [facility]; Protocol Stop: 09/24/18 22:59 Last Admin: 07/27/18 21:27 Dose: 15 mg Miscellaneous (Vancomycin Iv Per Pharmacy) 1 ea PRN [facility] Stop: 09/22/18 20:59 Miscellaneous (Clinical Monitoring) 1 ea DAILY PRN PRN Reason: RENAL DOSING (HD PT) Stop: 09/26/18 08:40 Quetiapine Fumarate (Seroquel) 50 mg PO BID [facility]; Protocol Stop: 09/22/18 20:44 Last Admin: 07/28/18 10:52 Dose: 50 mg Sodium Bicarbonate (Sodium Bicarbonate) 650 mg PO BID [facility]; Protocol Stop: 09/20/18 22:59 Last Admin: 07/28/18 10:53 Dose: 650 mg General: Alert, No acute distress HEENT: Atraumatic Neck: Other (perma cath site clean) Cardiovascular: Regular rate Lungs: Clear to auscultation Abdomen: Bowel sounds, Soft, no Tender, no Hepatomegaly, no Splenomegaly, no Distended, no Rebound, no Mass Extremities: no Clubbing Skin: no Rash - Procedures Procedures: Procedures Procedure Code Date PERFORMANCE OF URINARY FILTRATION, <6 HRS/DAY [id number] 07/22/18 Assessment/Plan - Assessment Assessment: Coagulase negative Staph bacteremia Elevated CA 19-9 Failure to thrive Lethargy slowly improving ESRD on HD Dysphagia Mental health disorder - Plan Plan: Case discussed ID specialist who recommended IV Vanco for 10 doses with HD DC plan back to [facility] today DC plan dw nursing staff Nutritional Asmnt/Malnutr-PDOC - Dietary Evaluation Malnutrition Findings (Please click <Entered> for more info): Nutritional Asmnt/Malnutrition Start: 07/23/18 16: 13 Text: Status: Complete Freq: Protocol: Document 07/23/18 16:18 LCHENG (Rec: 07/23/18 16:45 LCHENG [email or web address]) Nutritional Asmnt/Malnutrition Patient General Information Nutritional Screening High Risk Diagnosis FTT Pertinent Medical Hx/Surgical Hx HTN, DM, CVA/TIA, dyslipidemia , PUD/GERD, ESRD, dementia Subjective Information Pt seen sleeping in bed at time of visit, lunch tray just delivered. Per RN Saumya who fed pt this morning, RN stated pt consumed 75% of breakfast and ate well. pt has ESRD on dialysis and hx of DM noted. Glucose 209 at admission. Current Diet Order/ Nutrition Support pureed Pertinent Medications vit C, vit D3, synthroid megace, renvela, sodium bicarbonate Pertinent Labs 2/5 K 3.3, Cr 3.4, Glucose 209 , alb 3.3 Nutritional Hx/Data Height 1.7 m Height (Calculated Centimeters) 170.2 Current Weight (lbs) 64.864 kg Weight (Calculated Kilograms) 64.9 Weight (Calculated Grams) 86885.7 [place] Body Weight 148 Body Mass Index (BMI) 22.4 Weight Status Approriate GI Symptoms GI Symptoms None Last BM 2/6 x 3 Difficult in: None Usual diet at home pureed MARIANN CCHO renal at care facility per pt chart Skin Integrity/Comment: skin intact. Current %PO Good (75-100%) Estimated Nutritional Goals BEE in Kcals: Using Current wt Calories/Kcals/Kg 27-32 Kcals Calculated 2964-6667 Protein: Using Current wt Protein g/k.2-1.4 Protein Calculated 78-91 Fluid: ml per MD Nutritional Problem 1. Problem Problem altered nutrition related labs Etiology hyperglycemia, renal dysfunction Signs/Symptoms: Cr 3.4, Glucose 209 Malnutrition Alert Is there a minimum of two criteria No selected? Query Text:Check all the applicable criteria. A minimum of two criteria are recommended for diagnosis of either severe or non-severe malnutrition. Malnutrition Related to Morbid Obesity Malnutrition related to morbid obesity No Intervention/Recommendation Comments 1. Continue with pureed diet as ordered. Assist pt with meals. 2. Recommend to add renal 80g protein and CCHO diet d/t pt on dialysis and hyperglycemia. RN Saumya notified. Diet updated in the afternoon. 3. Monitor PO intake, wt, labs and skin integrity 4. F/U as moderate risk in 3-5 days, PO check 2 Expected Outcomes/Goals Expected Outcomes/Goals 1. PO intake to meet at least 75% of nutritional needs. 2. Wt stability, skin to remain intact, labs to approach WNL.
--- NOTE | 2018-07-28 15:11 | Progress Notes ---
DATE: LOCATION: [facility], room 17 bed A. SUBJECTIVE: The patient is conscious, alert, at times. The patient's family has refused to remove the Perm-A-Cath and reinsert a triple lumen Pedro catheter. OBJECTIVE: VITAL SIGNS: Temperature 97.5, pulse 71, and blood pressure 149/70. Yesterday's intake, the patient has very poor intake. HEART: Regular. LUNGS: Good air entry. ABDOMEN: Soft, nondistended, positive bowel sounds present. EXTREMITIES: No edema. LABORATORY DATA: Hemoglobin 10.1 and WBC 6.0. Sodium 141, potassium 3.9, chloride 104, CO2 26, BUN 29, creatinine 5.1, and phosphorus 3.2. ASSESSMENT: 1. Chronic kidney disease, V, on chronic hemodialysis Saturday, Saturday, and Saturday. 2. Malnutrition and anorexia. 3. Anemia. 4. Perm-A-Cath. 5. Dementia. 6. Hypophosphatemia, improving. 7. Hypertension. PLAN: We will try to reach the patient's family once again and we will request that if we can have discontinuation of Perm-A-Cath and insertion of Pedro catheter. Meanwhile, we will continue dialysis through a Perm-A-Cath hemodialysis tomorrow. Discussed with nursing staff at length. JOB# [id number]
[2018-07-28] MEDS ORDERED: Venelex 60gm Tube TP SCH (16:00)
--- NOTE | 2018-07-28 16:12 | Cardiology ---
07/25/[address] Aniya Zimmerman. PROCEDURE: Echocardiogram. M-MODE ECHOCARDIOGRAM: Mitral valve, anterior leaflet of mitral valve shows normal excursion, EF velocity. Posterior leaflet of the mitral valve shows normal excursion. Left ventricular posterior wall shows increased thickness, normal excursion. Interventricular septum shows increased thickness, normal excursion, hypertrophy of the left ventricle, ejection fraction 65%. Left atrium normal. Aortic root shows normal dimension, normal excursion of aortic leaflets. CONCLUSION: Hypertrophy of the left ventricle, ejection fraction 65%. 2D ECHO: Long axis view showed normal sized left ventricle with hypertrophy of the left ventricle. Left atrium normal. Aortic root shows normal dimension, normal excursion of aortic leaflets. Short axis view of mitral valve normal. Short axis view of aortic valve normal. Apical four chamber view showed normal sized left ventricle with hypertrophy of the left ventricle. Left atrium normal. Right ventricular cavity, right atrium normal, no pericardial effusion. CONCLUSION: Hypertrophy of the left ventricle, ejection fraction 65%. Doppler study shows moderate mitral regurgitation, severe aortic regurgitation, mild tricuspid regurgitation, right ventricular systolic pressure 30 mmHg. There is no evidence of endocarditis. JOB# [id number]
--- NOTE | 2018-07-28 23:32 | Progress Notes ---
DATE: LOCATION: [facility], room 17, bed A. SUBJECTIVE: The patient is essentially same, seems to be more comfortable. OBJECTIVE: VITAL SIGNS: Temperature 98.6, pulse 86, and blood pressure 113/57. Yesterday's Intake, output not available. HEART: Regular. LUNGS: Good air entry. ABDOMEN: Soft. EXTREMITIES: No edema. LABORATORY DATA: Hemoglobin 9.6 and WBC 7.0. Creatinine 6.6, potassium 4.3, and sodium 142. ASSESSMENT: 1. Chronic kidney disease V, on chronic hemodialysis Saturday, Saturday, and Saturday. 2. Perm-A-Cath right subclavian area. 3. Malnutrition. 4. Hypertension. 5. Dementia. 6. Hypophosphatemia. PLAN: Hemodialysis will be done today. Discussed with nursing staff to give a call to the patient's relative to request change of Perm-A-Cath if they agree, we will pursue that. JOB# [id number]
== END 2018-07-28 17:27 | DRG 871 ==
LOC: ER 16:16 → MSI 20:44 → UNDOADMIN 20:44 → MSI 07-23 16:07 → UNDOADMIN 07-26 18:58 → MSI 07-26 18:58 → TELE 07-26 19:09 → MSI 07-26 19:09 → TELE 07-27 15:52 → MSI 07-27 15:53 → TELE 07-27 15:53
PROVIDERS: ADMIT Family Medicine; ATTEND Family Medicine
PROC: 5A1D70Z Performance of Urinary Filtration, Intermittent, Less than 6 Hours Per Day (ICD-10-PCS; principal; 2018-07-23)
PROC: 5A1D70Z Performance of Urinary Filtration, Intermittent, Less than 6 Hours Per Day (ICD-10-PCS; 2018-07-25)
PROC: 5A1D70Z Performance of Urinary Filtration, Intermittent, Less than 6 Hours Per Day (ICD-10-PCS; 2018-07-28)
DX: A41.9 Sepsis, unspecified organism (principal); N18.6 End stage renal disease; J18.1 Lobar pneumonia, unspecified organism; E43 Unspecified severe protein-calorie malnutrition; R64 Cachexia; I12.0 Hypertensive chronic kidney disease with stage 5 chronic kidney disease or end stage renal disease; R62.7 Adult failure to thrive; D64.9 Anemia, unspecified; E78.5 Hyperlipidemia, unspecified; K21.9 Gastro-esophageal reflux disease without esophagitis; E11.22 Type 2 diabetes mellitus with diabetic chronic kidney disease; E87.6 Hypokalemia; R13.10 Dysphagia, unspecified; E03.9 Hypothyroidism, unspecified; R91.1 Solitary pulmonary nodule; E83.39 Other disorders of phosphorus metabolism; F03.90 Unspecified dementia, unspecified severity, without behavioral disturbance, psychotic disturbance, mood disturbance, and anxiety; Z86.73 Personal history of transient ischemic attack (TIA), and cerebral infarction without residual deficits; Z82.49 Family history of ischemic heart disease and other diseases of the circulatory system; Z68.26 Body mass index [BMI] 26.0-26.9, adult; Z99.2 Dependence on renal dialysis
CPT/HCPCS: 36415-UA; 71045-TC; 71250-TC; 80048-TC; 80053-TC; 80202-TC; 81001-TC; 82378-90; 82550-TC; 83036-90; 83605; 84100-TC; 84153-90; 84443-TC; 84484-TC; 85025-TC; 85610-TC; 85730-TC; 86301-90; 87086-90; 87804-TC; 93005; 94760; J1644; J1956; J2001; J3370; J7030; J7040; X3401; Z7610

== ENCOUNTER 2018-11-18 18:44 | Inpatient (IN) | payer MEDICARE, MEDICAID ==
[2018-11-18 19:31] VITALS: BP 136/58
[2018-11-18] MEDS ORDERED: Potassium Chloride 20 mEq ER Tab PO ONE (20:22)
[2018-11-18] MEDS ORDERED: Potassium Chloride Elixir 20 mEq /15 mL UDC PO ONE (20:56)
[2018-11-18] MEDS: cefTRIAXone 1 GM in Sodium Chloride 0.9% 50 ML IV SCH (22:37)
[2018-11-18] MEDS: Albuterol Nebulizer 2.5mg/3mL HHN PRN (23:41)
[2018-11-18] MEDS ORDERED: Fleet Enema 135 mL RC PRN (23:49)
[2018-11-18] MEDS ORDERED: DEXTROSE 25% IVP PRN (23:50)
[2018-11-18] MEDS: Azithromycin 500 MG in Sodium Chloride 0.9% 250 ML IV SCH (23:54)
[2018-11-19] MEDS ORDERED: GLUCAGON HCl 1 MG KIT IM PRN (00:14)
[2018-11-19] MEDS ORDERED: Dextrose 50% 50 mL Abboject IVP PRN (00:14)
[2018-11-19 06:02] LABS: HEMATOCRIT 32.7 % (41.0-60); HEMOGLOBIN 10.8 gm/dL (12-16); MEAN CELL VOLUME 86.5 fl (80-99); MEAN CORPUSCULAR HEMOGLOBIN 28.7 pg (27.0-31.0); MEAN CORPUSCULAR HGB CONC 33.1 pg (28.0-36.0); PLATELET COUNT 236 Th/cmm (150-400); RED BLOOD COUNT 3.77 Mil/cmm (3.80-5.80); RED CELL DISTRIBUTION WIDTH 15.5 % (11.5-20.0); WHITE BLOOD COUNT 11.1 Th/cmm (4.8-10.8)
[2018-11-19 06:24] LABS: BUN - UREA NITROGEN 42 mg/dL (7-25); CARBON DIOXIDE 32.8 mEq/L (21.0-31.0); CHLORIDE 100 mEq/L (98-107); GLUCOSE 127 mg/dL (70-105); POTASSIUM SERUM 3.8 mEq/L (3.5-5.1); SODIUM SERUM 143 mEq/L (136-145)
[2018-11-19] MEDS: INSULIN LISPRO SLIDING SCALE 100 UNITS/ML UNIT SUBQ SCH ×4 (06:31→20:59)
[2018-11-19 06:50] LABS: CREATININE - SERUM 5.5 mg/dL (0.7-1.3)
[2018-11-19] MEDS: Albuterol Nebulizer 2.5mg/3mL HHN PRN ×3 (07:10→14:06)
[2018-11-19] MEDS ORDERED: INSULIN HUMAN REGULAR 100 UNITS/ML UNIT SUBQ SCH (07:30)
[2018-11-19 08:07] LABS: BAND NEUTROPHILE 1 % (0-10); BASOPHIL 0 % (0-3); EOSINOPHIL 0 % (0-5); LYMPHOCYTE 12 % (20-50); MONOCYTE 5 % (2-10); NEUTROPHILS 82 % (40-80)
[2018-11-19] MEDS ORDERED: Apixaban 5 MG TABLET PO SCH (09:00)
[2018-11-19] MEDS: Apixaban 2.5 MG TABLET PO SCH ×2 (09:03→20:59)
[2018-11-19] MEDS: Multivitamin w/ Minerals Tab PO SCH (09:04)
[2018-11-19] MEDS: Ferrous Sulfate 300 MG/5 ML UDC PO SCH (09:04)
--- NOTE | 2018-11-19 11:38 | Consultation ---
DATE OF CONSULTATION: RENAL CONSULT LOCATION: [facility], Room 11, bed A. ATTENDING PHYSICIAN: Dr. Kwan. I thank you very much, Dr. Kwan for this consult. IDENTIFICATION: This is a 73-year-old male patient who while on the chronic hemodialysis unit yesterday, was found to be hypoxic and with change of mental status. The patient was transferred to [facility]. The patient subsequently has been transferred to [facility] due to insurance reason. Renal consultation has been requested for the need for dialysis. The patient yesterday dialysis was not completed. I have discussed this case with the dialysis center. According to them, the patient was hypotensive and hypoxic, and has a fever. There was no vomiting or diarrhea. The patient did not have any chest pain or palpitations prior to this incident. According to the nursing staff here, the patient does have loose bowel movements, but he does not have any vomiting or diarrhea. The patient does have some sacral decubiti ulcer, which he was treated for at [facility] a few weeks ago. PAST MEDICAL AND SURGICAL HISTORY: History of hypertension, CKD 5, on chronic hemodialysis, anemia, dementia. This patient also has a history of recurrent sacral decubiti ulcer, history of recent right upper extremity AV fistula surgery, history of Perm-A-Cath insertion, and history of left big size lipoma. SOCIAL HISTORY: The patient is a resident of a prison. No history of smoking or alcoholism. ALLERGIES: Not allergic. PHYSICAL EXAMINATION: VITAL SIGNS: Pulse 80, respirations 20, blood pressure 137/48, oxygen saturation is improved from 93%-96%. Yesterday's intake and output was not available. HEAD: Normocephalic, atraumatic. EYES: Sclera is nonicteric. Conjunctivae are pale. Pupils reactive. EAR, NOSE, THROAT: No bleeding or discharge. LUNGS: Good air entry, right base rales. HEART: Regular, no rub or gallop. ABDOMEN: Soft, not distended. Bowel sounds present. EXTREMITIES: No edema of the legs. No calf tenderness. On sacral area, the patient has stage 3-4 sacral decubiti ulcer. LABORATORY DATA: WBC 11.1, hemoglobin 10.8, sodium 143, potassium 3.8, BUN 42, creatinine 5.5, blood sugar 127, calcium 9.0. ASSESSMENT: 1. Chronic kidney disease 5, on chronic hemodialysis. 2. Anemia. 3. Sacral decubiti ulcer. 4. Hypoxia. 5. Right upper extremity AV fistula, not ready for use. 6. Perm-A-Cath for dialysis. 7. Left arm lipoma. 8. History of dementia. PLAN: 1. Hemodialysis will be done today since yesterday's dialysis was not completed. 2. Start the patient on Epogen subcutaneous. 3. Check CMP, phosphorus in the morning. 4. Wound care to see the patient. 5. Continue the patient on the breathing treatment and Eliquis. 6. The patient has been started on IV antibiotics. 7. Case has been discussed with Dr. Kwan and wound care team at length. I will follow this patient with you. JOB# [id number]
[2018-11-19] MEDS: Epoetin Alfa 20000 Units/mL Vial SUBQ SCH (16:19)
[2018-11-19] MEDS ORDERED: Heparin Sod 1,000Units/ML 1,000 UNITS/ML VIAL IVP ONE (20:19)
[2018-11-19] MEDS: cefTRIAXone 1 GM in Sodium Chloride 0.9% 50 ML IV SCH (20:55)
[2018-11-19] MEDS: Venelex 60gm Tube TP SCH (21:42)
[2018-11-19] MEDS: Azithromycin 500 MG in Sodium Chloride 0.9% 250 ML IV SCH (21:59)
--- NOTE | 2018-11-20 03:32 | History & Physical ---
ADMIT DATE: 11/18/2018 CHIEF COMPLAINT: Pneumonia and dehydration. HISTORY OF PRESENT ILLNESS: This is a 73-year-old male with underlying history of ESRD, on hemodialysis; dementia, diabetes and hypertension, stage IV sacrococcygeal pressure ulcer who lives in a nursing facility was initially evaluated at [facility] for shortness of breath and hypoxia. Initial evaluation suggestive of pneumonia. Due to insurance issue patient was transferred to [facility] for treatments. The patient has underlying history of dementia, poorly communicative. The patient is well known to me from senior care facility. Most of the history is obtained through discussion with ER physician at [facility]. No family was at the bedside. PAST MEDICAL HISTORY: ESRD, hemodialysis, hypertension, diabetes, dementia, dysphagia, stage 4 pressure ulcer, Malnutrition, Psych disorder PAST SURGICAL HISTORY: Pressure ulcer debridement surgery FAMILY HISTORY: None reported SOCIAL HISTORY: care home resident. No reported alcohol, tobacco or street drugs. ALLERGIES: No NKDA reported REVIEW OF SYSTEMS: No reported fever or vomiting or diarrhea or hemetemsis or melena. No hematuria reported PHYSICAL EXAMINATION: VITAL SIGNS: Temperature 98.1, pulse 70, respirations 18, blood pressure is 122/41, oxygen saturation 92%. CARDIOVASCULAR: S1 and S2 normal. LUNGS: Bilateral few rales noted. ABDOMEN: Soft, no distention, nontender. NEUROLOGIC: The patient is awake, but confused, poorly follow commands. Skin : Stage 4 sacrococcygeal decubitus wound AVAILABLE LABORATORY DATA: Reviewed. ASSESSMENT: 1. Pneumonia. 2. End-stage renal disease, on hemodialysis. 3. Hypertension. 4. Diabetes. 5. Dysphagia. 6. Stage 4 sacrococcygeal pressure ulcer PLAN: Admitted to tele unit. The patient was started on IV antibiotics. Hemodialysis will be given per schedule. Oxygen and bronchodilator treatments. Dysphagia diet and supportive care. graves registration specialist will be consulted for further evaluation and treatment for patient pressure ulcer. The patient's condition and plan were discussed with the nursing staff. The patient was also given wound care for his stage IV decubitus wound. Overall prognosis is poor. JOB# [id number] KIESHA
[2018-11-20 05:17] LABS: HEMATOCRIT 30.6 % (41.0-60); MEAN CELL VOLUME 85.9 fl (80-99); MEAN CORPUSCULAR HGB CONC 32.6 pg (28.0-36.0); PLATELET COUNT 207 Th/cmm (150-400); RED BLOOD COUNT 3.56 Mil/cmm (3.80-5.80); RED CELL DISTRIBUTION WIDTH 15.6 % (11.5-20.0)
[2018-11-20 05:21] LABS: ALB/GLOB RATIO 0.9 (1.0-1.8); ALBUMIN 2.8 gm/dL (4.2-5.5); ALKALINE PHOSPHATASE 74 U/L (34-104); ANION GAP 13.2 (7.0-16.0); BILIRUBIN,TOTAL 0.5 mg/dL (0.3-1.0); BUN - UREA NITROGEN 18 mg/dL (7-25); CALCIUM SERUM 9.2 mg/dL (8.6-10.3); CARBON DIOXIDE 29.3 mEq/L (21.0-31.0); CHLORIDE 101 mEq/L (98-107); CREATININE - SERUM 2.8 mg/dL (0.7-1.3); GLUCOSE 102 mg/dL (70-105); PHOSPHOROUS 1.8 mg/dL (2.5-5.0); POTASSIUM SERUM 3.5 mEq/L (3.5-5.1); SGOT 19 U/L (13-39); SGPT/ALT 9 U/L (7-52); SODIUM SERUM 140 mEq/L (136-145)
--- NOTE | 2018-11-20 06:19 | Progress Notes ---
DATE: 11/20/2018 LOCATION: [facility], room # 11, bed A. SUBJECTIVE: The patient had dialysis yesterday, tolerated it well, on antibiotic. No vomiting or diarrhea, tolerating food well. PHYSICAL EXAMINATION: VITAL SIGNS: Temperature 97.3, pulse 73, blood pressure 128/53. Yesterday's intake not well documented. HEART: Regular. LUNGS: Clear. ABDOMEN: Benign. EXTREMITIES: No edema. Sacral decubiti covered with a dressing. LABORATORY DATA: WBC decreased from 11.1 down to 7, hemoglobin 10.0. Chemistry not available. ASSESSMENT: 1. Chronic kidney disease 5, on chronic hemodialysis Saturday, Saturday and Saturday. 2. Anemia. 3. Dementia. 4. Sacral decubitus ulcer. 5. Hypoxia, improving. 6. Right upper extremity AV fistula, not ready for use. 7. Perm-A-Cath for dialysis. PLAN: Hemodialysis will be done tomorrow. Check BMP, phosphorus in the morning. If hemoglobin continues to decrease, we will increase Epogen and check iron level. Discussed with nursing staff. JOB# [id number]
[2018-11-20 06:55] LABS: MAGNESIUM 1.6 mg/dL (1.9-2.7)
[2018-11-20 07:01] LABS: BAND NEUTROPHILE 0 % (0-10); BASOPHIL 0 % (0-3); EOSINOPHIL 0 % (0-5); LYMPHOCYTE 14 % (20-50); MONOCYTE 3 % (2-10); NEUTROPHILS 83 % (40-80)
[2018-11-20 07:02] LABS: PLATELET ESTIMATE ADEQUATE (NORMAL)
[2018-11-20] MEDS: INSULIN LISPRO SLIDING SCALE 100 UNITS/ML UNIT SUBQ SCH ×4 (08:08→20:17)
[2018-11-20] MEDS: Venelex 60gm Tube TP SCH (08:44)
--- NOTE | 2018-11-20 09:14 | Diagnostic Imaging Report ---
CHEST X-RAY: AP view INDICATION: Pneumonia COMPARISON: 08/20/2018 FINDINGS: Prior NG tube is normal. Right thousand catheter stable. Increased interstitial lung markings are seen along the lower lung zones. Small left effusion is noted. Heart size is at the upper limits of normal. Atherosclerosis is noted. IMPRESSION: Increased interstitial lung markings along the lower lung zones. Faint infiltrates cannot be excluded. Small left effusion.
[2018-11-20] MEDS: Multivitamin w/ Minerals Tab PO SCH (10:13)
[2018-11-20] MEDS: Ferrous Sulfate 300 MG/5 ML UDC PO SCH (10:13)
[2018-11-20] MEDS: Apixaban 2.5 MG TABLET PO SCH ×2 (10:16→20:12)
--- NOTE | 2018-11-20 12:47 | General Progress Note ---
Subjective - Review of Systems Service Date: 11/20/18 Subjective: Patient seen and examined awake alert still some chest and throat congestion noted Patient refused breakfast and lunch today per nursing staff breathing seems ok Objective - Results Result Diagrams: 11/20/18 05:00 11/20/18 05:00 Recent Labs: Laboratory Last Values WBC 7.0 Th/cmm (4.8-10.8) 11/20/18 05:00 RBC 3.56 Mil/cmm (3.80-5.80) L 11/20/18 05:00 Hgb 10.0 gm/dL (12-16) L 11/20/18 05:00 Hct 30.6 % (41.0-60) L 11/20/18 05:00 MCV 85.9 fl (80-99) 11/20/18 05:00 MCH 28.0 pg (27.0-31.0) 11/20/18 05:00 MCHC Differential 32.6 pg (28.0-36.0) 11/20/18 05:00 RDW 15.6 % (11.5-20.0) 11/20/18 05:00 Plt Count 207 Th/cmm (150-400) 11/20/18 05:00 MPV 9.0 fl 11/20/18 05:00 Add Manual Diff YES 11/20/18 05:00 Band Neutrophils % 0 % (0-10) 11/20/18 05:00 Neutrophils (Manual) 83 % (40-80) H 11/20/18 05:00 Lymphocytes 14 % (20-50) L 11/20/18 05:00 Monocytes 3 % (2-10) 11/20/18 05:00 Eosinophils 0 % (0-5) 11/20/18 05:00 Basophils 0 % (0-3) 11/20/18 05:00 Platelet Estimate ADEQUATE (NORMAL) 11/20/18 05:00 Sodium 140 mEq/L (136-145) 11/20/18 05:00 Potassium 3.5 mEq/L (3.5-5.1) 11/20/18 05:00 Chloride 101 mEq/L (98-107) 11/20/18 05:00 Carbon Dioxide 29.3 mEq/L (21.0-31.0) 11/20/18 05:00 Anion Gap 13.2 (7.0-16.0) 11/20/18 05:00 BUN 18 mg/dL (7-25) 11/20/18 05:00 Creatinine 2.8 mg/dL (0.7-1.3) H 11/20/18 05:00 Est GFR ( Amer) TNP 11/20/18 05:00 Est GFR (Non-Af Amer) TNP 11/20/18 05:00 BUN/Creatinine Ratio 6.4 11/20/18 05:00 Glucose 102 mg/dL (70-105) 11/20/18 05:00 POC Glucose 87 MG/DL (70 - 105) 11/20/18 12:10 Calcium 9.2 mg/dL (8.6-10.3) 11/20/18 05:00 Phosphorus 1.8 mg/dL (2.5-5.0) L 11/20/18 05:00 Magnesium 1.6 mg/dL (1.9-2.7) L 11/20/18 05:00 Total Bilirubin 0.5 mg/dL (0.3-1.0) 11/20/18 05:00 AST 19 U/L (13-39) 11/20/18 05:00 ALT 9 U/L (7-52) 11/20/18 05:00 Alkaline Phosphatase 74 U/L (34-104) 11/20/18 05:00 Total Protein 6.0 gm/dL (6.0-8.3) 11/20/18 05:00 Albumin 2.8 gm/dL (4.2-5.5) L 11/20/18 05:00 Globulin 3.2 gm/dL 11/20/18 05:00 Albumin/Globulin Ratio 0.9 (1.0-1.8) L 11/20/18 05:00 - Physical Exam Vitals and I&O: Vital Signs Temp 97.5 F 11/20/18 11:53 Pulse 74 11/20/18 11:53 Resp 18 11/20/18 11:53 BP 109/61 11/20/18 11:53 Pulse Ox 97 11/20/18 11:53 Intake & Output 11/19/18 11/20/18 11/20/18 18:59 06:59 18:59 Intake Total 900 350 Balance 900 350 Weight (lbs) 62.051 kg 61.689 kg Intake: Intake, IV Amount 300 Azithromycin 500 mg In 250 Sodium Chloride 0.9% 250 ml @ 250 mls/hr IV Q24HR [facility] Rx#:[id number] cefTRIAXone 1 gm In 50 Sodium Chloride 0.9% 50 ml @ 100 mls/hr IV Q24HR [facility] Rx#:[id number] Oral 900 50 Other: # Voids 4 2 # Bowel Movements 1 Weight Source Bedscale Bedscale Active Medications: Current Medications Acetaminophen (Tylenol) 500 mg PO Q4HR PRN PRN Reason: Mild Pain Or Fever above 101 Stop: 01/17/19 20:18 Albuterol Sulfate (Albuterol 2.5mg/3ml Neb Ud) 2.5 mg HHN Q2H PRN PRN Reason: Shortness of Breath Stop: 01/17/19 23:27 Last Admin: 11/19/18 14:06 Dose: 2.5 mg Ascorbic Acid (Vitamin C) 500 mg PO DAILY [facility] Stop: 01/18/19 08:59 Last Admin: 11/20/18 10:13 Dose: 500 mg Bisacodyl (Dulcolax 10 Mg Supp) 10 mg RC DAILY PRN PRN Reason: Constipation Stop: 01/17/19 23:48 Carvedilol (Coreg) 3.125 mg PO BID [facility] Stop: 01/18/19 08:59 Last Admin: 11/20/18 10:14 Dose: 3.125 mg [place] Oil/[place] Balsam/Trypsin (Venelex) 1 appl TP DAILY [facility] Stop: 01/18/19 16:59 Last Admin: 11/19/18 21:42 Dose: 1 appl Dextrose (Dextrose 25%) 10 ml IVP PRN PRN PRN Reason: UD Dextrose (D50w) 50 ml IVP PRN PRN PRN Reason: Blood Glucose less than 70 Stop: 01/18/19 00:13 Dextrose (Glutose 40%) 18.75 gm PO PRN PRN PRN Reason: Blood Glucose less than 70 Stop: 01/18/19 00:13 Epoetin Kenney (Epogen) 10,000 units SUBQ [id number]@1700 [facility] Stop: 01/18/19 16:59 Ferrous Sulfate (Iron) 300 mg PO DAILY [facility] Stop: 01/18/19 08:59 Last Admin: 11/20/18 10:13 Dose: 300 mg Folic Acid (Folate) 1 mg PO DAILY [facility] Stop: 01/18/19 08:59 Last Admin: 11/20/18 10:14 Dose: 1 mg Glucagon (Glucagen) 1 mg IM PRN PRN PRN Reason: Blood Glucose less than 70 Stop: 01/18/19 00:13 Hydralazine HCl (Apresoline) 50 mg PO Q12H [facility] Stop: 01/17/19 22:29 Last Admin: 11/20/18 10:14 Dose: 50 mg Ceftriaxone Sodium 1 gm/ (Sodium Chloride) 50 mls @ 100 mls/hr IV Q24HR [facility] Stop: 11/24/18 20:59 Last Infusion: 11/19/18 21:25 Dose: Infused Azithromycin 500 mg/ Sodium (Chloride) 250 mls @ 250 mls/hr IV Q24HR [facility] Stop: 11/24/18 21:59 Last Infusion: 11/19/18 22:59 Dose: Infused Insulin Human Lispro (Humalog Insulin Sliding Scale) 0 units SUBQ [facility]; Protocol Stop: 01/18/19 07:29 Last Admin: 11/20/18 08:08 Dose: Not Given Ondansetron HCl (Zofran) 4 mg IV Q6H PRN PRN Reason: Nausea / Vomiting Stop: 01/17/19 20:12 Sodium Phosphate (Fleet Enema) 135 ml RC PRN PRN PRN Reason: Constipation Stop: 01/17/19 23:48 Zinc Sulfate (Zinc Sulfate) 220 mg PO DAILY [facility] Stop: 01/18/19 08:59 Last Admin: 11/20/18 10:14 Dose: 220 mg Cardiovascular: Regular rate Lungs: Other (rales) - Procedures Procedures: Procedures Procedure Code Date EXCISION OF SIGMOID COLON, ENDO [id number] 08/19/18 EXCISION OF STOMACH, ENDO, DIAGN [id number] 08/19/18 PERFORMANCE OF URINARY FILTRATION, <6 HRS/DAY [id number] 08/19/18 TRANSFUSE NONAUT RED BLOOD CELLS IN PERIPH VEIN, PERC 37379R2 08/19/18 Assessment/Plan - Assessment Assessment: Pneumonia Dysphagia ESRD on HD Stage IV decubitus wound Malnutrition HTN Mental health disorder - Plan Plan: WBC better Chest xray reviewed Continue oxygen and bronchodilator Continue antibiotics ST eval and follow up Wound care team consulted for wound VAC Daily wound and skin care HD per schedule I updated family re:patient's condition and plan of care Plan of care discussed with nursing staff
[2018-11-20] MEDS: Epoetin Alfa 20000 Units/mL Vial SUBQ SCH (15:23)
[2018-11-20] MEDS: cefTRIAXone 1 GM in Sodium Chloride 0.9% 50 ML IV SCH (20:12)
[2018-11-20] MEDS: Azithromycin 500 MG in Sodium Chloride 0.9% 250 ML IV SCH (21:00)
--- NOTE | 2018-11-21 00:30 | Progress Notes ---
DATE: 11/20/2018 PULMONARY AND CRITICAL CARE CONSULTATION NOTE REASON FOR CONSULTATION: Pneumonia with significant disability condition. CONSULT NOTE: This is a 73-year-old gentlemen, very poor historian, do not get much of a history, has a history of end-stage renal disease, on hemodialysis with history of dementia, hypertension, diabetes mellitus and lives in a local nursing facility. Subsequently, the patient was transferred from [facility] for further care and necessary treatment for hypoxemia. Unfortunately, a meaningful detailed history is very minimal to nil. PAST MEDICAL HISTORY: History of end-stage renal disease, history of hemodialysis, history of diabetes, history of dementia, history of dysphagia and other history is very minimal. PHYSICAL EXAMINATION: GENERAL: This is an elderly, cachectic looking gentleman, awake, but not too much communicative, not in acute distress, etc. VITAL SIGNS: The patient's recorded vital signs; temperature is 97, blood pressure 139/55, saturation is 96%. NECK: Veins not visualized. CHEST: Shows diminished air entry with occasional rhonchi. HEART: Regular. ABDOMEN: Soft, nontender. EXTREMITIES: Shows significant cachectic extremities, otherwise unremarkable. LABORATORY DATA: The patient's chest x-ray shows some haziness in the right upper lobe with some haziness in the left retrocardiac region. ASSESSMENT: The patient has acute pneumonia, exact etiology is not clearcut, possibility of aspiration is always there. PLANS AND SUGGESTIONS: We will give aggressive respiratory care, inhalation treatment, etc. Garibay culture. Continue empiric antibiotic, etc. and see how he does and go from there. [facility]# [id number]
[2018-11-21 05:21] LABS: HEMATOCRIT 32.6 % (41.0-60); HEMOGLOBIN 10.7 gm/dL (12-16); MEAN CELL VOLUME 86.2 fl (80-99); MEAN CORPUSCULAR HEMOGLOBIN 28.3 pg (27.0-31.0); MEAN CORPUSCULAR HGB CONC 32.8 pg (28.0-36.0); PLATELET COUNT 262 Th/cmm (150-400); RED BLOOD COUNT 3.78 Mil/cmm (3.80-5.80); RED CELL DISTRIBUTION WIDTH 15.5 % (11.5-20.0)
[2018-11-21 05:30] LABS: ANION GAP 18.2 (7.0-16.0); BUN - UREA NITROGEN 24 mg/dL (7-25); CALCIUM SERUM 9.4 mg/dL (8.6-10.3); CARBON DIOXIDE 27.6 mEq/L (21.0-31.0); CHLORIDE 104 mEq/L (98-107); CREATININE - SERUM 3.9 mg/dL (0.7-1.3); GLUCOSE 77 mg/dL (70-105); PHOSPHOROUS 2.6 mg/dL (2.5-5.0); POTASSIUM SERUM 3.8 mEq/L (3.5-5.1); SODIUM SERUM 146 mEq/L (136-145)
[2018-11-21 05:35] LABS: WHITE BLOOD COUNT 7.8 Th/cmm (4.8-10.8)
[2018-11-21 06:35] LABS: BAND NEUTROPHILE 0 % (0-10); BASOPHIL 0 % (0-3); EOSINOPHIL 1 % (0-5); LYMPHOCYTE 8 % (20-50); MONOCYTE 2 % (2-10); NEUTROPHILS 89 % (40-80); PLATELET ESTIMATE ADEQUATE (NORMAL)
[2018-11-21] MEDS: INSULIN LISPRO SLIDING SCALE 100 UNITS/ML UNIT SUBQ SCH ×4 (06:47→21:12)
[2018-11-21] MEDS: Venelex 60gm Tube TP SCH (09:19)
[2018-11-21] MEDS: Ferrous Sulfate 300 MG/5 ML UDC PO SCH (09:19)
[2018-11-21] MEDS: Multivitamin w/ Minerals Tab PO SCH (09:19)
[2018-11-21] MEDS: Apixaban 2.5 MG TABLET PO SCH ×2 (09:20→22:14)
--- NOTE | 2018-11-21 09:40 | General Progress Note ---
Subjective - Review of Systems Service Date: 11/21/18 Subjective: IM OK Objective - Results Result Diagrams: 11/21/18 04:45 11/21/18 04:45 Recent Labs: Laboratory Last Values WBC 7.8 Th/cmm (4.8-10.8) 11/21/18 04:45 RBC 3.78 Mil/cmm (3.80-5.80) L 11/21/18 04:45 Hgb 10.7 gm/dL (12-16) L 11/21/18 04:45 Hct 32.6 % (41.0-60) L 11/21/18 04:45 MCV 86.2 fl (80-99) 11/21/18 04:45 MCH 28.3 pg (27.0-31.0) 11/21/18 04:45 MCHC Differential 32.8 pg (28.0-36.0) 11/21/18 04:45 RDW 15.5 % (11.5-20.0) 11/21/18 04:45 Plt Count 262 Th/cmm (150-400) D 11/21/18 04:45 MPV 9.3 fl 11/21/18 04:45 Add Manual Diff YES 11/21/18 04:45 Band Neutrophils % 0 % (0-10) 11/21/18 04:45 Neutrophils (Manual) 89 % (40-80) H 11/21/18 04:45 Lymphocytes 8 % (20-50) L 11/21/18 04:45 Monocytes 2 % (2-10) 11/21/18 04:45 Eosinophils 1 % (0-5) 11/21/18 04:45 Basophils 0 % (0-3) 11/21/18 04:45 Platelet Estimate ADEQUATE (NORMAL) 11/21/18 04:45 Sodium 146 mEq/L (136-145) H 11/21/18 04:45 Potassium 3.8 mEq/L (3.5-5.1) 11/21/18 04:45 Chloride 104 mEq/L (98-107) 11/21/18 04:45 Carbon Dioxide 27.6 mEq/L (21.0-31.0) 11/21/18 04:45 Anion Gap 18.2 (7.0-16.0) H 11/21/18 04:45 BUN 24 mg/dL (7-25) 11/21/18 04:45 Creatinine 3.9 mg/dL (0.7-1.3) H 11/21/18 04:45 Est GFR ( Amer) TNP 11/21/18 04:45 Est GFR (Non-Af Amer) TNP 11/21/18 04:45 BUN/Creatinine Ratio 6.2 11/21/18 04:45 Glucose 77 mg/dL (70-105) 11/21/18 04:45 POC Glucose 72 MG/DL (70 - 105) 11/21/18 06:07 Calcium 9.4 mg/dL (8.6-10.3) 11/21/18 04:45 Phosphorus 2.6 mg/dL (2.5-5.0) 11/21/18 04:45 Magnesium 1.6 mg/dL (1.9-2.7) L 11/20/18 05:00 Total Bilirubin 0.5 mg/dL (0.3-1.0) 11/20/18 05:00 AST 19 U/L (13-39) 11/20/18 05:00 ALT 9 U/L (7-52) 11/20/18 05:00 Alkaline Phosphatase 74 U/L (34-104) 11/20/18 05:00 Total Protein 6.0 gm/dL (6.0-8.3) 11/20/18 05:00 Albumin 2.8 gm/dL (4.2-5.5) L 11/20/18 05:00 Globulin 3.2 gm/dL 11/20/18 05:00 Albumin/Globulin Ratio 0.9 (1.0-1.8) L 11/20/18 05:00 - Physical Exam Vitals and I&O: Vital Signs Temp 96.9 F 11/21/18 09:22 Pulse 81 11/21/18 09:30 Resp 19 11/21/18 09:22 BP 159/59 11/21/18 09:30 Pulse Ox 94 11/21/18 09:22 Intake & Output 11/20/18 11/21/18 11/21/18 18:59 06:59 18:59 Intake Total 50 460 Output Total 1 Balance 50 459 Weight (lbs) 61.689 kg 71.577 kg Intake: Intake, IV Amount 300 Azithromycin 500 mg In 250 Sodium Chloride 0.9% 250 ml @ 250 mls/hr IV Q24HR [facility] Rx#:[id number] cefTRIAXone 1 gm In 50 Sodium Chloride 0.9% 50 ml @ 100 mls/hr IV Q24HR [facility] Rx#:[id number] Oral 50 160 Output: Urine 1 Other: # Voids 2 # Bowel Movements 1 1 Weight Source Bedscale Bedscale Active Medications: Current Medications Acetaminophen (Tylenol) 500 mg PO Q4HR PRN PRN Reason: Mild Pain Or Fever above 101 Stop: 01/17/19 20:18 Albuterol Sulfate (Albuterol 2.5mg/3ml Neb Ud) 2.5 mg HHN Q2H PRN PRN Reason: Shortness of Breath Stop: 01/17/19 23:27 Last Admin: 11/19/18 14:06 Dose: 2.5 mg Ascorbic Acid (Vitamin C) 500 mg PO DAILY [facility] Stop: 01/18/19 08:59 Last Admin: 11/21/18 09:20 Dose: 500 mg Bisacodyl (Dulcolax 10 Mg Supp) 10 mg RC DAILY PRN PRN Reason: Constipation Stop: 01/17/19 23:48 Carvedilol (Coreg) 3.125 mg PO BID [facility] Stop: 01/18/19 08:59 Last Admin: 11/21/18 09:20 Dose: 3.125 mg [place] Oil/[place] Balsam/Trypsin (Venelex) 1 appl TP DAILY [facility] Stop: 01/18/19 16:59 Last Admin: 11/21/18 09:19 Dose: 1 appl Dextrose (Dextrose 25%) 10 ml IVP PRN PRN PRN Reason: UD Dextrose (D50w) 50 ml IVP PRN PRN PRN Reason: Blood Glucose less than 70 Stop: 01/18/19 00:13 Dextrose (Glutose 40%) 18.75 gm PO PRN PRN PRN Reason: Blood Glucose less than 70 Stop: 01/18/19 00:13 Epoetin Kenney (Epogen) 10,000 units SUBQ [id number]@1700 [facility] Stop: 01/18/19 16:59 Last Admin: 11/20/18 15:23 Dose: 10,000 units Ferrous Sulfate (Iron) 300 mg PO DAILY [facility] Stop: 01/18/19 08:59 Last Admin: 11/21/18 09:19 Dose: 300 mg Folic Acid (Folate) 1 mg PO DAILY [facility] Stop: 01/18/19 08:59 Last Admin: 11/21/18 09:20 Dose: 1 mg Glucagon (Glucagen) 1 mg IM PRN PRN PRN Reason: Blood Glucose less than 70 Stop: 01/18/19 00:13 Hydralazine HCl (Apresoline) 50 mg PO Q12H [facility] Stop: 01/17/19 22:29 Last Admin: 11/21/18 09:30 Dose: 50 mg Ceftriaxone Sodium 1 gm/ (Sodium Chloride) 50 mls @ 100 mls/hr IV Q24HR [facility] Stop: 11/24/18 20:59 Last Infusion: 11/20/18 20:42 Dose: Infused Azithromycin 500 mg/ Sodium (Chloride) 250 mls @ 250 mls/hr IV Q24HR [facility] Stop: 11/24/18 21:59 Last Infusion: 11/20/18 22:00 Dose: Infused Insulin Human Lispro (Humalog Insulin Sliding Scale) 0 units SUBQ [facility]; Protocol Stop: 01/18/19 07:29 Last Admin: 11/21/18 06:47 Dose: Not Given Ondansetron HCl (Zofran) 4 mg IV Q6H PRN PRN Reason: Nausea / Vomiting Stop: 01/17/19 20:12 Sodium Phosphate (Fleet Enema) 135 ml RC PRN PRN PRN Reason: Constipation Stop: 01/17/19 23:48 Zinc Sulfate (Zinc Sulfate) 220 mg PO DAILY [facility] Stop: 01/18/19 08:59 Last Admin: 11/21/18 09:19 Dose: 220 mg General: Alert HEENT: Atraumatic Cardiovascular: Regular rate Lungs: Other (rales) Abdomen: Soft - Procedures Procedures: Procedures Procedure Code Date EXCISION OF SIGMOID COLON, ENDO [id number] 08/19/18 EXCISION OF STOMACH, ENDO, DIAGN [id number] 08/19/18 PERFORMANCE OF URINARY FILTRATION, <6 HRS/DAY [id number] 08/19/18 TRANSFUSE NONAUT RED BLOOD CELLS IN PERIPH VEIN, PERC 95197F4 08/19/18 Assessment/Plan - Assessment Assessment: ESRD ON HD MWF SACRAL DECUBITUS ON WOUND CARE DEMENTIA STABLE ANEMIA ON EPO - Plan Plan: HD TODAY CONT CURRENT RX
[2018-11-21] MEDS: Albuterol/Ipratropium Neb 3 ML AERS HHN SCH (15:38)
[2018-11-21] MEDS: Epoetin Alfa 20000 Units/mL Vial SUBQ SCH (17:15)
[2018-11-21] MEDS: cefTRIAXone 1 GM in Sodium Chloride 0.9% 50 ML IV SCH (21:01)
[2018-11-21] MEDS: Azithromycin 500 MG in Sodium Chloride 0.9% 250 ML IV SCH (21:43)
[2018-11-21] MEDS: Budesonide 0.5 Mg/2 mL Ud HHN SCH (22:14)
--- NOTE | 2018-11-21 22:56 | General Progress Note ---
Subjective - Review of Systems Service Date: 11/21/18 Subjective: Patient seen and examined awake but confused when I asked his name he was just starring at me When I asked where he is He was unable to answer Objective - Results Result Diagrams: 11/21/18 04:45 11/21/18 04:45 Recent Labs: Laboratory Last Values WBC 7.8 Th/cmm (4.8-10.8) 11/21/18 04:45 RBC 3.78 Mil/cmm (3.80-5.80) L 11/21/18 04:45 Hgb 10.7 gm/dL (12-16) L 11/21/18 04:45 Hct 32.6 % (41.0-60) L 11/21/18 04:45 MCV 86.2 fl (80-99) 11/21/18 04:45 MCH 28.3 pg (27.0-31.0) 11/21/18 04:45 MCHC Differential 32.8 pg (28.0-36.0) 11/21/18 04:45 RDW 15.5 % (11.5-20.0) 11/21/18 04:45 Plt Count 262 Th/cmm (150-400) D 11/21/18 04:45 MPV 9.3 fl 11/21/18 04:45 Add Manual Diff YES 11/21/18 04:45 Band Neutrophils % 0 % (0-10) 11/21/18 04:45 Neutrophils (Manual) 89 % (40-80) H 11/21/18 04:45 Lymphocytes 8 % (20-50) L 11/21/18 04:45 Monocytes 2 % (2-10) 11/21/18 04:45 Eosinophils 1 % (0-5) 11/21/18 04:45 Basophils 0 % (0-3) 11/21/18 04:45 Platelet Estimate ADEQUATE (NORMAL) 11/21/18 04:45 Sodium 146 mEq/L (136-145) H 11/21/18 04:45 Potassium 3.8 mEq/L (3.5-5.1) 11/21/18 04:45 Chloride 104 mEq/L (98-107) 11/21/18 04:45 Carbon Dioxide 27.6 mEq/L (21.0-31.0) 11/21/18 04:45 Anion Gap 18.2 (7.0-16.0) H 11/21/18 04:45 BUN 24 mg/dL (7-25) 11/21/18 04:45 Creatinine 3.9 mg/dL (0.7-1.3) H 11/21/18 04:45 Est GFR ( Amer) TNP 11/21/18 04:45 Est GFR (Non-Af Amer) TNP 11/21/18 04:45 BUN/Creatinine Ratio 6.2 11/21/18 04:45 Glucose 77 mg/dL (70-105) 11/21/18 04:45 POC Glucose 101 MG/DL (70 - 105) 11/21/18 21:10 Calcium 9.4 mg/dL (8.6-10.3) 11/21/18 04:45 Phosphorus 2.6 mg/dL (2.5-5.0) 11/21/18 04:45 Magnesium 1.6 mg/dL (1.9-2.7) L 11/20/18 05:00 Total Bilirubin 0.5 mg/dL (0.3-1.0) 11/20/18 05:00 AST 19 U/L (13-39) 11/20/18 05:00 ALT 9 U/L (7-52) 11/20/18 05:00 Alkaline Phosphatase 74 U/L (34-104) 11/20/18 05:00 Total Protein 6.0 gm/dL (6.0-8.3) 11/20/18 05:00 Albumin 2.8 gm/dL (4.2-5.5) L 11/20/18 05:00 Globulin 3.2 gm/dL 11/20/18 05:00 Albumin/Globulin Ratio 0.9 (1.0-1.8) L 11/20/18 05:00 - Physical Exam Vitals and I&O: Vital Signs Temp 97.6 F 11/21/18 20:19 Pulse 80 11/21/18 22:13 Resp 19 11/21/18 20:19 BP 136/66 11/21/18 22:13 Pulse Ox 97 11/21/18 20:19 Intake & Output 11/21/18 11/21/18 11/22/18 06:59 18:59 06:59 Intake Total 460 200 Output Total 1 Balance 459 200 Weight (lbs) 71.577 kg 71.577 kg Intake: Intake, IV Amount 300 Azithromycin 500 mg In 250 Sodium Chloride 0.9% 250 ml @ 250 mls/hr IV Q24HR [facility] Rx#:[id number] cefTRIAXone 1 gm In 50 Sodium Chloride 0.9% 50 ml @ 100 mls/hr IV Q24HR [facility] Rx#:[id number] Oral 160 200 Output: Urine 1 Other: # Voids 2 # Bowel Movements 1 2 Weight Source Bedscale Bedscale Active Medications: Current Medications Acetaminophen (Tylenol) 500 mg PO Q4HR PRN PRN Reason: Mild Pain Or Fever above 101 Stop: 01/17/19 20:18 Albuterol Sulfate (Albuterol 2.5mg/3ml Neb Ud) 2.5 mg HHN Q2H PRN PRN Reason: Shortness of Breath Stop: 01/17/19 23:27 Last Admin: 11/19/18 14:06 Dose: 2.5 mg Albuterol/Ipratropium (Duoneb Neb) 3 ml HHN [id number] [facility] Stop: 01/20/19 14:59 Last Admin: 11/21/18 15:38 Dose: 3 ml Ascorbic Acid (Vitamin C) 500 mg PO DAILY [facility] Stop: 01/18/19 08:59 Last Admin: 11/21/18 09:20 Dose: 500 mg Bisacodyl (Dulcolax 10 Mg Supp) 10 mg RC DAILY PRN PRN Reason: Constipation Stop: 01/17/19 23:48 Budesonide (Pulmicort) 0.5 mg HHN BIDRT [facility] Stop: 01/20/19 18:59 Last Admin: 11/21/18 22:14 Dose: Not Given Carvedilol (Coreg) 3.125 mg PO BID [facility] Stop: 01/18/19 08:59 Last Admin: 11/21/18 17:14 Dose: 3.125 mg [place] Oil/Finnish Balsam/Trypsin (Venelex) 1 appl TP DAILY [facility] Stop: 01/18/19 16:59 Last Admin: 11/21/18 09:19 Dose: 1 appl Dextrose (Dextrose 25%) 10 ml IVP PRN PRN PRN Reason: UD Dextrose (D50w) 50 ml IVP PRN PRN PRN Reason: Blood Glucose less than 70 Stop: 01/18/19 00:13 Dextrose (Glutose 40%) 18.75 gm PO PRN PRN PRN Reason: Blood Glucose less than 70 Stop: 01/18/19 00:13 Epoetin [place] (Epogen) 10,000 units SUBQ [id number]@1700 [facility] Stop: 01/18/19 16:59 Last Admin: 11/21/18 17:15 Dose: 10,000 units Ferrous Sulfate (Iron) 300 mg PO DAILY [facility] Stop: 01/18/19 08:59 Last Admin: 11/21/18 09:19 Dose: 300 mg Folic Acid (Folate) 1 mg PO DAILY [facility] Stop: 01/18/19 08:59 Last Admin: 11/21/18 09:20 Dose: 1 mg Glucagon (Glucagen) 1 mg IM PRN PRN PRN Reason: Blood Glucose less than 70 Stop: 01/18/19 00:13 Hydralazine HCl (Apresoline) 50 mg PO Q12H [facility] Stop: 01/17/19 22:29 Last Admin: 11/21/18 22:13 Dose: 50 mg Ceftriaxone Sodium 1 gm/ (Sodium Chloride) 50 mls @ 100 mls/hr IV Q24HR [facility] Stop: 11/24/18 20:59 Last Admin: 11/21/18 21:01 Dose: 100 mls/hr Azithromycin 500 mg/ Sodium (Chloride) 250 mls @ 250 mls/hr IV Q24HR [facility] Stop: 11/24/18 21:59 Last Admin: 11/21/18 21:43 Dose: 250 mls/hr Insulin Human Lispro (Humalog Insulin Sliding Scale) 0 units SUBQ [facility]; Protocol Stop: 01/18/19 07:29 Last Admin: 11/21/18 21:12 Dose: Not Given Ondansetron HCl (Zofran) 4 mg IV Q6H PRN PRN Reason: Nausea / Vomiting Stop: 01/17/19 20:12 Sodium Phosphate (Fleet Enema) 135 ml RC PRN PRN PRN Reason: Constipation Stop: 01/17/19 23:48 Zinc Sulfate (Zinc Sulfate) 220 mg PO DAILY [facility] Stop: 01/18/19 08:59 Last Admin: 11/21/18 09:19 Dose: 220 mg General: Other (confused) HEENT: Atraumatic Cardiovascular: Regular rate Lungs: Other (rales) Abdomen: Soft - Procedures Procedures: Procedures Procedure Code Date EXCISION OF SIGMOID COLON, ENDO [id number] 08/19/18 EXCISION OF STOMACH, ENDO, DIAGN [id number] 08/19/18 PERFORMANCE OF URINARY FILTRATION, <6 HRS/DAY [id number] 08/19/18 TRANSFUSE NONAUT RED BLOOD CELLS IN PERIPH VEIN, PERC 25124M4 08/19/18 Assessment/Plan - Assessment Assessment: Pneumonia Dysphagia ESRD on HD Stage IV decubitus wound Malnutrition HTN Mental health disorder - Plan Plan: WBC better Chest xray reviewed Continue oxygen and bronchodilator Continue antibiotics ST eval and follow up Wound care team consulted for wound VAC . I discussed case with wound VAC nurse who recomended surgical debridement of the wound General surgery consulted. Daily wound and skin care Patient's niece who is next to kin requested Hospice eval. She also requested to stop HD I left voicemail for patient's niece to discuss patient's condition but haven't received call back yet. I also discussed the case with DR KELLOGG ( psychiatrist) who evaluated the patient for mental capacity. Per DR RIZVI patient is not mentally capable of making any decision. Hospital ethics committe was also consulted. Plan of care discussed with nursing staff Nutritional Asmnt/Malnutr-PDOC - Dietary Evaluation Malnutrition Findings (Please click <Entered> for more info): Nutritional Asmnt/Malnutrition Start: 11/21/18 16: 05 Text: Status: Complete Freq: Protocol: Document 11/21/18 16:05 [email or web address] (Rec: 11/21/18 16:17 [email or web address]) Nutritional Asmnt/Malnutrition Patient General Information Nutritional Screening High Risk Diagnosis PNA, dehydration Pertinent Medical Hx/Surgical Hx ESRD on HD, dementia, DM, HTN, dysphagia, malnutrition Subjective Information Pt asleep at visit, no family present; unable to obtain hx. PO intake 11/19 50-100-50%, 11/20 0% intake all meals per flowsheet; 11/21 90% breakfast, 50% lunch per RN= average po x 8 meals 43%. Niece feeds pt when present per RN, made aware of recs. Pt on dialysis. No noted food allergy. Discuccsed case with WOCN. Current Diet Order/ Nutrition Support renal 80g protein, NCS wtih nectar-thick liquids Patient / S.O Not Indicated Pertinent Medications vitamin C, IV abx, ferrous sulfate, folic acid, glucagon, Humalog, zinc sulfate, PRN Zofran/enema Pertinent Labs (11/21) Cr 3.9 Nutritional Hx/Data Height 1.83 m Height (Calculated Centimeters) 182.9 Current Weight (lbs) 61.689 kg Weight (Calculated Kilograms) 61.7 Weight (Calculated Grams) 56653.6 [place] Body Weight 178 lb Body Mass Index (BMI) 18.4 Weight Status Underweight GI Symptoms GI Symptoms None Last BM 11/21 Difficult in: Swallowing Skin Integrity/Comment: stage IV pressure injury at sacrococcygeal area Estimated Nutritional Goals Calories/Kcals/Kg 30-35 Kcals Calculated 1584-7843 Protein g/k-93 Protein Calculated 1.2-1.5 Fluid: ml 1000+UOP Nutritional Problem 2. Problem Problem increased nutrient needs Etiology ESRD and wound healing Signs/Symptoms: on HD and stage IV sacralcoccygeal area 1. Problem Problem Inadequate po intake Etiology lack of appetite/medical condition Signs/Symptoms: 43% average intake x 8 meals Intervention/Recommendation Comments 1. liberalize to 80g protein diet (no K/Phos restriction), MARIANN, NCS with nectar-thick liquids 2. add Nepro TID 3. consider vitamin B complex/ vitC/folic acid for wound healing 4. continue zinc sulfate at this time 5. consider topical zinc oxide for wound healing Expected Outcomes/Goals Expected Outcomes/Goals 1. PO intake to meet at least 75% of nutritional needs. 2. Wt stability, skin to remain intact, labs to approach WNL. Anastasiya Adamson RD
[2018-11-22 05:33] LABS: % BASOPHILS 0.4 % (0.0-2.0); % EOSINOPHILS 0.7 % (0.0-5.0); % LYMPHOCYTES 12.1 % (20.0-50.0); % MONOCYTES 4.6 % (2.0-10.0); % NEUTROPHILS 82.2 % (40.0-80.0); EOSINOPHILE ABSOLUTE 0.1 Th/cmm (0.1-0.4); HEMATOCRIT 30.4 % (41.0-60); HEMOGLOBIN 10.1 gm/dL (12-16); LYMPHOCYTE ABSOLUTE 1.1 Th/cmm (1.5-3.0); MEAN CELL VOLUME 85.5 fl (80-99); MEAN CORPUSCULAR HEMOGLOBIN 28.4 pg (27.0-31.0); MEAN CORPUSCULAR HGB CONC 33.2 pg (28.0-36.0); MONOCYTE ABSOLUTE 0.4 Th/cmm (0.3-1.0); NEUTROPHILE ABSOLUTE 7.2 Th/cmm (1.8-8.0); PLATELET COUNT 229 Th/cmm (150-400); RED BLOOD COUNT 3.55 Mil/cmm (3.80-5.80); RED CELL DISTRIBUTION WIDTH 15.2 % (11.5-20.0); WHITE BLOOD COUNT 8.8 Th/cmm (4.8-10.8)
[2018-11-22] MEDS: INSULIN LISPRO SLIDING SCALE 100 UNITS/ML UNIT SUBQ SCH ×4 (06:30→22:31)
[2018-11-22] MEDS: Budesonide 0.5 Mg/2 mL Ud HHN SCH ×2 (06:53→19:44)
[2018-11-22] MEDS: Albuterol/Ipratropium Neb 3 ML AERS HHN SCH ×4 (06:53→19:44)
[2018-11-22] MEDS: Apixaban 2.5 MG TABLET PO SCH ×2 (08:10→20:09)
[2018-11-22] MEDS: Multivitamin w/ Minerals Tab PO SCH (08:11)
[2018-11-22] MEDS: Ferrous Sulfate 300 MG/5 ML UDC PO SCH (08:11)
[2018-11-22] MEDS: Venelex 60gm Tube TP SCH (08:12)
[2018-11-22 09:24] LABS: PaO2 58.5 mmHg (80.0-100.0); pH 7.471 (7.35-7.45)
--- NOTE | 2018-11-22 09:53 | General Progress Note ---
Subjective - Review of Systems Service Date: 11/22/18 Subjective: IM OK Objective - Results Result Diagrams: 11/22/18 05:00 11/21/18 04:45 Recent Labs: Laboratory Last Values WBC 8.8 Th/cmm (4.8-10.8) 11/22/18 05:00 RBC 3.55 Mil/cmm (3.80-5.80) L 11/22/18 05:00 Hgb 10.1 gm/dL (12-16) L 11/22/18 05:00 Hct 30.4 % (41.0-60) L 11/22/18 05:00 MCV 85.5 fl (80-99) 11/22/18 05:00 MCH 28.4 pg (27.0-31.0) 11/22/18 05:00 MCHC Differential 33.2 pg (28.0-36.0) 11/22/18 05:00 RDW 15.2 % (11.5-20.0) 11/22/18 05:00 Plt Count 229 Th/cmm (150-400) 11/22/18 05:00 MPV 9.1 fl 11/22/18 05:00 Add Manual Diff YES 11/21/18 04:45 Neutrophils % 82.2 % (40.0-80.0) H 11/22/18 05:00 Band Neutrophils % 0 % (0-10) 11/21/18 04:45 Lymphocytes % 12.1 % (20.0-50.0) L 11/22/18 05:00 Monocytes % 4.6 % (2.0-10.0) 11/22/18 05:00 Eosinophils % 0.7 % (0.0-5.0) 11/22/18 05:00 Basophils % 0.4 % (0.0-2.0) 11/22/18 05:00 Neutrophils (Manual) 89 % (40-80) H 11/21/18 04:45 Lymphocytes 8 % (20-50) L 11/21/18 04:45 Monocytes 2 % (2-10) 11/21/18 04:45 Eosinophils 1 % (0-5) 11/21/18 04:45 Basophils 0 % (0-3) 11/21/18 04:45 Platelet Estimate ADEQUATE (NORMAL) 11/21/18 04:45 Specimen Source Arterial 11/22/18 09:00 Sample Site Left Radial 11/22/18 09:00 pH 7.471 (7.35-7.45) H 11/22/18 09:00 pCO2 35.0 mmHg (35.0-45.0) 11/22/18 09:00 pO2 58.5 mmHg (80.0-100.0) L 11/22/18 09:00 HCO3 25.0 mEq/L (20.0-26.0) 11/22/18 09:00 Base Excess 1.8 mEq/L (-3.0-3.0) 11/22/18 09:00 O2 Saturation 92.0 % (92.0-100.0) 11/22/18 09:00 Ramos Test Positive 11/22/18 09:00 Vent Rate N/A 11/22/18 09:00 Inspired O2 32 11/22/18 09:00 Tidal Volume N/A 11/22/18 09:00 PEEP N/A 11/22/18 09:00 Pressure (ins/psv/peep) N/A 11/22/18 09:00 Critical Value DM 11/22/18 09:00 Sodium 146 mEq/L (136-145) H 11/21/18 04:45 Potassium 3.8 mEq/L (3.5-5.1) 11/21/18 04:45 Chloride 104 mEq/L (98-107) 11/21/18 04:45 Carbon Dioxide 27.6 mEq/L (21.0-31.0) 11/21/18 04:45 Anion Gap 18.2 (7.0-16.0) H 11/21/18 04:45 BUN 24 mg/dL (7-25) 11/21/18 04:45 Creatinine 3.9 mg/dL (0.7-1.3) H 11/21/18 04:45 Est GFR ( Amer) TNP 11/21/18 04:45 Est GFR (Non-Af Amer) TNP 11/21/18 04:45 BUN/Creatinine Ratio 6.2 11/21/18 04:45 Glucose 77 mg/dL (70-105) 11/21/18 04:45 POC Glucose 93 MG/DL (70 - 105) 11/22/18 05:56 Calcium 9.4 mg/dL (8.6-10.3) 11/21/18 04:45 Phosphorus 2.6 mg/dL (2.5-5.0) 11/21/18 04:45 Magnesium 1.6 mg/dL (1.9-2.7) L 11/20/18 05:00 Total Bilirubin 0.5 mg/dL (0.3-1.0) 11/20/18 05:00 AST 19 U/L (13-39) 11/20/18 05:00 ALT 9 U/L (7-52) 11/20/18 05:00 Alkaline Phosphatase 74 U/L (34-104) 11/20/18 05:00 Total Protein 6.0 gm/dL (6.0-8.3) 11/20/18 05:00 Albumin 2.8 gm/dL (4.2-5.5) L 11/20/18 05:00 Globulin 3.2 gm/dL 11/20/18 05:00 Albumin/Globulin Ratio 0.9 (1.0-1.8) L 11/20/18 05:00 - Physical Exam Vitals and I&O: Vital Signs Temp 97.2 F 11/22/18 08:00 Pulse 97 11/22/18 08:11 Resp 18 11/22/18 08:00 BP 150/57 11/22/18 08:11 Pulse Ox 94 11/22/18 08:00 Intake & Output 11/21/18 11/22/18 11/22/18 18:59 06:59 18:59 Intake Total 200 Output Total 1 Balance 200 -1 Weight (lbs) 71.577 kg 71.214 kg Intake: Oral 200 Output: Urine 1 Other: # Voids 2 # Bowel Movements 2 0 Weight Source Bedscale Bedscale Active Medications: Current Medications Acetaminophen (Tylenol) 500 mg PO Q4HR PRN PRN Reason: Mild Pain Or Fever above 101 Stop: 01/17/19 20:18 Albuterol Sulfate (Albuterol 2.5mg/3ml Neb Ud) 2.5 mg HHN Q2H PRN PRN Reason: Shortness of Breath Stop: 01/17/19 23:27 Last Admin: 11/19/18 14:06 Dose: 2.5 mg Albuterol/Ipratropium (Duoneb Neb) 3 ml HHN [id number] [facility] Stop: 01/20/19 14:59 Last Admin: 11/22/18 06:53 Dose: 3 ml Ascorbic Acid (Vitamin C) 500 mg PO DAILY [facility] Stop: 01/18/19 08:59 Last Admin: 11/22/18 08:11 Dose: 500 mg Bisacodyl (Dulcolax 10 Mg Supp) 10 mg RC DAILY PRN PRN Reason: Constipation Stop: 01/17/19 23:48 Budesonide (Pulmicort) 0.5 mg HHN BIDRT [facility] Stop: 01/20/19 18:59 Last Admin: 11/22/18 06:53 Dose: 0.5 mg Carvedilol (Coreg) 3.125 mg PO BID [facility] Stop: 01/18/19 08:59 Last Admin: 11/22/18 08:11 Dose: 3.125 mg [place] Oil/[place] Balsam/Trypsin (Venelex) 1 appl TP DAILY [facility] Stop: 01/18/19 16:59 Last Admin: 11/22/18 08:12 Dose: 1 appl Dextrose (Dextrose 25%) 10 ml IVP PRN PRN PRN Reason: UD Dextrose (D50w) 50 ml IVP PRN PRN PRN Reason: Blood Glucose less than 70 Stop: 01/18/19 00:13 Dextrose (Glutose 40%) 18.75 gm PO PRN PRN PRN Reason: Blood Glucose less than 70 Stop: 01/18/19 00:13 Epoetin Ken[place] (Epogen) 10,000 units SUBQ [id number] [facility] Stop: 01/18/19 16:59 Last Admin: 11/21/18 17:15 Dose: 10,000 units Ferrous Sulfate (Iron) 300 mg PO DAILY [facility] Stop: 01/18/19 08:59 Last Admin: 11/22/18 08:11 Dose: 300 mg Folic Acid (Folate) 1 mg PO DAILY [facility] Stop: 01/18/19 08:59 Last Admin: 11/22/18 08:11 Dose: 1 mg Glucagon (Glucagen) 1 mg IM PRN PRN PRN Reason: Blood Glucose less than 70 Stop: 01/18/19 00:13 Hydralazine HCl (Apresoline) 50 mg PO Q12H [facility] Stop: 01/17/19 22:29 Last Admin: 11/21/18 22:13 Dose: 50 mg Ceftriaxone Sodium 1 gm/ (Sodium Chloride) 50 mls @ 100 mls/hr IV Q24HR [facility] Stop: 11/24/18 20:59 Last Admin: 11/21/18 21:01 Dose: 100 mls/hr Azithromycin 500 mg/ Sodium (Chloride) 250 mls @ 250 mls/hr IV Q24HR [facility] Stop: 11/24/18 21:59 Last Admin: 11/21/18 21:43 Dose: 250 mls/hr Insulin Human Lispro (Humalog Insulin Sliding Scale) 0 units SUBQ ACHS [facility]; Protocol Stop: 01/18/19 07:29 Last Admin: 11/22/18 06:30 Dose: Not Given Ondansetron HCl (Zofran) 4 mg IV Q6H PRN PRN Reason: Nausea / Vomiting Stop: 01/17/19 20:12 Sodium Phosphate (Fleet Enema) 135 ml RC PRN PRN PRN Reason: Constipation Stop: 01/17/19 23:48 Zinc Sulfate (Zinc Sulfate) 220 mg PO DAILY [facility] Stop: 01/18/19 08:59 Last Admin: 11/22/18 08:11 Dose: 220 mg General: Other (confused) HEENT: Atraumatic Cardiovascular: Regular rate Lungs: Other (rales) Abdomen: Soft Extremities: Edema - Procedures Procedures: Procedures Procedure Code Date EXCISION OF SIGMOID COLON, ENDO [id number] 08/19/18 EXCISION OF STOMACH, ENDO, DIAGN [id number] 08/19/18 PERFORMANCE OF URINARY FILTRATION, <6 HRS/DAY [id number] 08/19/18 TRANSFUSE NONAUT RED BLOOD CELLS IN PERIPH VEIN, PERC [id number] 08/19/18 Assessment/Plan - Assessment Assessment: ESRD ON HD MWF SACRAL DECUBITUS ON WOUND CARE DEMENTIA STABLE ANEMIA ON EPO - Plan Plan: FAMILY REFUSED HD YESTERDAY HOSPICE EVAL ORDERED. WILL SIGN OFF PLEASE RECONSULT PRN Nutritional Asmnt/Malnutr-PDOC - Dietary Evaluation Malnutrition Findings (Please click <Entered> for more info): Nutritional Asmnt/Malnutrition Start: 11/21/18 16: 05 Text: Status: Complete Freq: Protocol: Document 11/21/18 16:05 [email or web address] (Rec: 11/21/18 16:17 [email or web address]) Nutritional Asmnt/Malnutrition Patient General Information Nutritional Screening High Risk Diagnosis PNA, dehydration Pertinent Medical Hx/Surgical Hx ESRD on HD, dementia, DM, HTN, dysphagia, malnutrition Subjective Information Pt asleep at visit, no family present; unable to obtain hx. PO intake 11/19 50-100-50%, 11/20 0% intake all meals per flowsheet; 11/21 90% breakfast, 50% lunch per RN= average po x 8 meals 43%. Niece feeds pt when present per RN, made aware of recs. Pt on dialysis. No noted food allergy. Discuccsed case with WOCN. Current Diet Order/ Nutrition Support renal 80g protein, NCS wtih nectar-thick liquids Patient / S.O Not Indicated Pertinent Medications vitamin C, IV abx, ferrous sulfate, folic acid, glucagon, Humalog, zinc sulfate, PRN Zofran/enema Pertinent Labs (11/21) Cr 3.9 Nutritional Hx/Data Height 1.83 m Height (Calculated Centimeters) 182.9 Current Weight (lbs) 61.689 kg Weight (Calculated Kilograms) 61.7 Weight (Calculated Grams) 38702.6 [place] Body Weight 178 lb Body Mass Index (BMI) 18.4 Weight Status Underweight GI Symptoms GI Symptoms None Last BM 11/21 Difficult in: Swallowing Skin Integrity/Comment: stage IV pressure injury at sacrococcygeal area Estimated Nutritional Goals Calories/Kcals/Kg 30-35 Kcals Calculated 1089-1736 Protein g/k-93 Protein Calculated 1.2-1.5 Fluid: ml 1000+UOP Nutritional Problem 2. Problem Problem increased nutrient needs Etiology ESRD and wound healing Signs/Symptoms: on HD and stage IV sacralcoccygeal area 1. Problem Problem Inadequate po intake Etiology lack of appetite/medical condition Signs/Symptoms: 43% average intake x 8 meals Intervention/Recommendation Comments 1. liberalize to 80g protein diet (no K/Phos restriction), MARIANN, NCS with nectar-thick liquids 2. add Nepro TID 3. consider vitamin B complex/ vitC/folic acid for wound healing 4. continue zinc sulfate at this time 5. consider topical zinc oxide for wound healing Expected Outcomes/Goals Expected Outcomes/Goals 1. PO intake to meet at least 75% of nutritional needs. 2. Wt stability, skin to remain intact, labs to approach WNL. Anastasiya Adamson RD
--- NOTE | 2018-11-22 15:44 | Consultation ---
Consult Note - Consult Note Service Date: 11/22/18 Referring Physician: Erasmo Kwan Consult Note: PHYSICIAN Consultation Note: Date of Admission: 11/18/18 Purpose of Consultation: Chief Complaint: History of Present Illness: Patient UMANG VALLE was admitted to [facility] with PNEUMONIA. Past Medical History: Diagnoses UNSPECIFIED PROTEIN-CALORIE MALNUTRITION (11/18/18) PNEUMONIA, UNSPECIFIED ORGANISM (11/18/18) PRESSURE ULCER OF SACRAL REGION, STAGE 4 (11/18/18) END STAGE RENAL DISEASE (11/18/18) WEAKNESS (11/18/18) DEPENDENCE ON RENAL DIALYSIS (11/18/18) Allergies Allergy/AdvReac Type Severity Reaction Status Date / Time No Known Allergies Allergy Verified 11/19/18 11:03 Vital Signs Temp 97.2 F 11/22/18 11:42 Pulse 80 11/22/18 14:34 Resp 36 11/22/18 14:34 BP 130/57 11/22/18 11:42 Pulse Ox 93 11/22/18 14:34 Intake & Output 11/21/18 11/22/18 11/22/18 18:59 06:59 18:59 Intake Total 200 Output Total 1 Balance 200 -1 Weight (lbs) 157 lb 12.8 oz 157 lb Intake: Oral 200 Output: Urine 1 Other: # Voids 2 # Bowel Movements 2 0 Weight Source Bedscale Bedscale Laboratory Results - last 24 hr 11/21/18 11/21/18 11/22/18 16:03 21:10 05:00 WBC 8.8 RBC 3.55 L Hgb 10.1 L Hct 30.4 L MCV 85.5 MCH 28.4 MCHC Differential 33.2 RDW 15.2 Plt Count 229 MPV 9.1 Neutrophils % 82.2 H Lymphocytes % 12.1 L Monocytes % 4.6 Eosinophils % 0.7 Basophils % 0.4 Specimen Source Sample Site pH pCO2 pO2 HCO3 Base Excess O2 Saturation Ramos Test Vent Rate Inspired O2 Tidal Volume PEEP Pressure (ins/psv/peep) Critical Value POC Glucose 96 101 11/22/18 11/22/18 11/22/18 05:56 09:00 11:36 WBC RBC Hgb Hct MCV MCH MCHC Differential RDW Plt Count MPV Neutrophils % Lymphocytes % Monocytes % Eosinophils % Basophils % Specimen Source Arterial Sample Site Left Radial pH 7.471 H pCO2 35.0 pO2 58.5 L HCO3 25.0 Base Excess 1.8 O2 Saturation 92.0 Ramos Test Positive Vent Rate N/A Inspired O2 32 Tidal Volume N/A PEEP N/A Pressure (ins/psv/peep) N/A Critical Value DM POC Glucose 93 122 H Home Medication Medication Instructions Recorded Type Ascorbic Acid [Vitamin C] 500 mg PO DAILY 06/11/18 History Aspirin 81 mg PO DAILY 06/11/18 History Atorvastatin Calcium [Lipitor] 40 mg PO HS 06/11/18 History Bisacodyl [Dulcolax 10 Mg Supp] 10 mg RC DAILY PRN 06/11/18 History Cinacalcet [Sensipar] 30 mg PO DAILY 06/11/[address] [Depakote DR] 250 mg PO BID 06/11/18 History Docusate Sodium/Senna [Senna Plus 1 tab PO Q12H 06/11/18 History 50 mg-8.6 mg] Fleet Enema 135 ml RC DAILY PRN 06/11/18 History Heparin Sod 5,000Units/ML 3,300 units IV UD 06/11/18 History [Heparin*] Hydralazine [Apresoline*] 10 mg PO DAILY PRN 06/11/18 History Insulin Aspart Sliding Scale See Protocol SQ ACHS 06/11/18 History [NovoLOG INSULIN SLIDING SCALE] Ipratropium/Albuterol Sulfate 3 ml HHN Q4H 06/11/18 History [Iprat-Albut 0.5-3(2.5) mg/3 ml] Levothyroxine Sodium 100 mcg PO DAILY 06/11/18 History Lorazepam [Ativan] 0.5 mg PO UD 06/11/18 History Multivitamin with Minerals 1 tab PO DAILY 06/11/18 History [Multivitamins with Minerals] Sevelamer Carbonate [Renvela] 3,200 mg PO TIDWM 06/11/18 History Sodium Bicarbonate 650 mg PO BID 06/11/18 History Vitamin D 2,000 iu PO DAILY 06/11/18 History Zinc Sulfate 220 mg PO DAILY 06/11/18 History Acetaminophen [Tylenol] 325 mg PO Q4HR PRN tab 07/28/18 Rx Famotidine [Pepcid] 20 mg PO DAILY tab 07/28/18 Rx Losartan Potassium [Cozaar] 25 mg PO DAILY tab 07/28/18 Rx Mirtazapine [Remeron] 15 mg PO HS tab 07/28/18 Rx Carvedilol [Coreg] 3.125 mg PO BID 08/19/18 History Glucagon,Human Recombinant 1 mg IM DAILY PRN 08/19/18 History [Glucagon Emergency Kit] Magnesium Hydroxide [Milk of 30 ml PO DAILY PRN 08/19/18 History Magnesia] Protein Supplement [Promod] 30 ml PO TID 08/19/18 History Warfarin Sodium 5 mg PO UD 08/19/18 History Warfarin Sodium 7.5 mg PO MWF 08/19/18 History Balsam [place] Oil [Venelex] 1 appl TP DAILY appl 08/26/18 Rx Folic Acid [Folate*] 1 mg PO DAILY tab 08/26/18 Rx Warfarin Sodium [Coumadin*] 4 mg PO 1300 tab 08/26/18 Rx Current Medications Generic Name Dose Route Start Last Admin Trade Name Freq PRN Reason Stop Dose Admin Acetaminophen 500 mg 11/18/18 20:19 Tylenol PO 01/17/19 20:18 Q4HR PRN Mild Pain Or Fever above 101 Albuterol Sulfate 2.5 mg 11/18/18 23:28 11/19/18 14:06 Albuterol 2.5mg/3ml Neb Ud N 01/17/19 23:27 2.5 mg Q2H PRN Administration Shortness of Breath Albuterol/Ipratropium 3 ml 11/21/18 15:00 11/22/18 14:32 Duoneb Neb N 01/20/19 14:59 3 ml [id number] SUPRIYA Administration Ascorbic Acid 500 mg 11/19/18 09:00 11/22/18 08:11 Vitamin C PO 01/18/19 08:59 500 mg DAILY SUPRIYA Administration Bisacodyl 10 mg 11/18/18 23:49 Dulcolax 10 Mg Supp RC 01/17/19 23:48 DAILY PRN Constipation Budesonide 0.5 mg 11/21/18 19:00 11/22/18 06:53 Pulmicort HHN 01/20/19 18:59 0.5 mg BIDRT SUPRIYA Administration Carvedilol 3.125 mg 11/19/18 09:00 11/22/18 08:11 Coreg PO 01/18/19 08:59 3.125 mg BID SUPRIYA Administration [place] Oil/[place] Balsam/Trypsin 1 appl 11/19/18 17:00 11/22/18 08:12 Venelex TP 01/18/19 16:59 1 appl DAILY SUPRIYA Administration Dextrose 10 ml 11/18/18 23:50 Dextrose 25% IVP PRN PRN UD Dextrose 50 ml 11/19/18 00:14 D50w IVP 01/18/19 00:13 PRN PRN Blood Glucose less than 70 Dextrose 18.75 gm 11/19/18 00:14 Glutose 40% PO 01/18/19 00:13 PRN PRN Blood Glucose less than 70 Epoetin Kenney 10,000 units 11/19/18 17:00 11/21/18 17:15 Epogen SUBQ 01/18/19 16:59 10,000 units [id number] SUPRIYA Administration Ferrous Sulfate 300 mg 11/19/18 09:00 11/22/18 08:11 Iron PO 01/18/19 08:59 300 mg DAILY SUPRIYA Administration Folic Acid 1 mg 11/19/18 09:00 11/22/18 08:11 Folate PO 01/18/19 08:59 1 mg DAILY SUPRIYA Administration Glucagon 1 mg 11/19/18 00:14 Glucagen IM 01/18/19 00:13 PRN PRN Blood Glucose less than 70 Hydralazine HCl 50 mg 11/18/18 22:30 11/22/18 11:24 Apresoline PO 01/17/19 22:29 50 mg Q12H SUPRIYA Administration Ceftriaxone Sodium 1 gm/ 50 mls @ 100 mls/hr 11/18/18 20:30 11/21/18 21:01 Sodium Chloride IV 11/24/18 20:59 100 mls/hr Q24HR SUPRIYA Administration Azithromycin 500 mg/ Sodium 250 mls @ 250 mls/hr 11/18/18 21:00 11/21/18 21: 43 Chloride IV 11/24/18 21:59 250 mls/hr Q24HR SUPRIYA Administration Insulin Human Lispro 0 units 11/19/18 07:30 11/22/18 11:42 Humalog Insulin Sliding Scale SUBQ 01/18/19 07:29 Not Given ACHS SUPRIYA Protocol Ondansetron HCl 4 mg 11/18/18 20:13 Zofran IV 01/17/19 20:12 Q6H PRN Nausea / Vomiting Sodium Phosphate 135 ml 11/18/18 23:49 Fleet Enema RC 01/17/19 23:48 PRN PRN Constipation Zinc Sulfate 220 mg 11/19/18 09:00 11/22/18 08:11 Zinc Sulfate PO 01/18/19 08:59 220 mg DAILY SUPRIYA Administration Review of Systems: A 12 point ROS was reviewed with the pertinent positive and negatives noted in the HPI. Social History Smoking Status Unknown if ever smoked Family Medical History Family Medical History Start: 11/18/18 18: 48 Freq: ONCE Status: Active Protocol: Document 11/18/18 18:48 [email or web address] (Rec: 11/19/18 00:20 [email or web address] [id number]) Family Medical History Mother History Unknown Yes Physical Exam: General: HEENT: Neck: Cardio: Respiratory: Abdominal: soft non tender Genital/Urinary: sacral decubitus ulcer stage iv Extremities: Neurological: Assessment: stage iv sacral decubitus ulcer Plan: continue management per Gennaro wound care nurse recommendations of debridement of the base of the wound with acell placement and wound closure by secondary wound healing vs flap closure primary care closure if there is enough tissue looseness for tissue transfer with Prevena wound support discussed at length with niece (nurse) Viktor regarding family dynamics and that she is far away but willing to help her uncle get better. She is agreable with her uncle's wishes to continue dialysis and provide him with wound care services to help heal the stage 1V ulcer Curtis, Jose F Mckeon [id number]
--- NOTE | 2018-11-22 16:43 | Diagnostic Imaging Report ---
CHEST X-RAY: AP view INDICATION: Pneumonia COMPARISON: 11/20/2018 FINDINGS: Right IJ line is stable. Left sided skinfolds are noted. No pneumothorax. Mild increased interstitial lung markings are noted. There is suggestion of left lower lobe infiltrates. Heart size at the upper limits of normal. Atherosclerosis is noted. IMPRESSION: Probable left lower lobe infiltrate/pneumonia.
--- NOTE | 2018-11-22 16:43 | Consultation ---
DATE OF CONSULTATION: 11/21/2018 CAPACITY EVALUATION HISTORY OF PRESENT ILLNESS: A 73-year-old male Russian speaking only. Niece is bedside. Her name is Miriam. I used the interpretation line provided by the hospital [employer] b[employer] architect #[id number]. On [id number], the patient is A and O x0. He does not know his name. He is not able to tell me his name. I asked him multiple times with the ib[employer] b[employer] architect. At one point, I even asked the niece to ask him the name and apparently he does not give a name. He gives some other name. He does not know where he is. He does not know the year or the month. He is not able to tell me any of his medical problems. The patient is generally calm on exam. PAST PSYCHIATRIC HISTORY. Per the niece, no psychiatric history. FAMILY HISTORY: Noncontributory. SOCIAL HISTORY: Per the niece, he was born in [place], . He has no kids. She states "I am his only family." Apparently the niece tried to get a publications sales representative to come to the hospital for him to sign some documents and papers and the staff got concerned because the patient seemed pretty out of it and disoriented. The niece states that the reason the nurses thought this is because they do not speak Russian, but even using an Russian ib[employer] b[employer] architect, the patient is highly disoriented. PAST MEDICAL HISTORY: Noted. MENTAL STATUS EXAMINATION: Little eye contact, awake, generally alert, responds to his nieces' questions, but for all intents and purposes, he is alert and oriented x0. As noted, confused. No overt SI or HI. No overt psychotic symptoms. Insight and judgment seemingly diminished. PROVISIONAL DIAGNOSIS: Unclear. Rule out dementia, possibly delirium. The niece notes that sometimes he is more engaged and oriented, but clearly at this time he is quite disoriented. Certainly, rule out dementia. MEDICAL: Please see full H and P. RECOMMENDATIONS AND PLAN: In conclusion at this time, it appears that the patient lacks the capacity to be involved in treatment, dispo planning. I spoke with nursing staff, spoke with Dr. Kwan personally. JOB# [id number]
--- NOTE | 2018-11-22 16:43 | Progress Notes ---
DATE: 11/21/2018 PULMONARY AND CRITICAL CARE PROGRESS NOTE PROBLEM LIST: 1. Hypoxemic respiratory failure. 2. Question basal infiltrate, question aspiration. 3. History of chronic renal failure, on hemodialysis. SYMPTOMS: The patient is awake, but not meaningful communication could be done. Currently still on the Venturi mask, no respiratory distress. PHYSICAL EXAMINATION: VITAL SIGNS: Temperature is 97-98 and BP 156/77, saturation is 96 on a Venturi mask. NECK: Veins not visualized. CHEST: Shows diminished air entry with occasional rhonchi. HEART: Regular. ABDOMEN: Soft, nontender. LABORATORY DATA: The patient's white count is 7.8, hemoglobin 10.7. The patient clinically appears to be not too much changed or any significantly improved. PLANS AND SUGGESTIONS: We will try switching a Ventimask to nasal O2 and see how he does and go from there. JOB# [id number]
[2018-11-22] MEDS: cefTRIAXone 1 GM in Sodium Chloride 0.9% 50 ML IV SCH (20:09)
--- NOTE | 2018-11-22 20:44 | Progress Notes ---
DATE: 11/22/2018 PULMONARY PROGRESS NOTE PROBLEM LIST: 1. Acute hypoxemic respiratory failure. 2. Question of fluid overload. 3. Underlying altered level of consciousness. 4. History of renal failure, on hemodialysis. SYMPTOMS: The patient blinks eyes, but no respiratory distress. Currently on a nasal O2, saturating pretty mid 90s. PHYSICAL EXAMINATION: VITAL SIGNS: Temperature is 98.7, blood pressure 148/57. NECK: Veins not visualized. CHEST: Shows diminished air entry with occasional rhonchi. HEART: Regular. ABDOMEN: Soft, nontender. EXTREMITIES: Shows no peripheral edema. IMAGING: Please note, there is some haziness on the chest x-ray on the left side, maybe slightly better with a dialysis catheter. ASSESSMENT: The patient is clinically stable, unchanged. PLANS AND SUGGESTIONS: We will go ahead and continue current treatment. Continue current respiratory care, inhalation treatment, etc., and go from there. JOB# [id number]
--- NOTE | 2018-11-22 22:16 | General Progress Note ---
Subjective - Review of Systems Service Date: 11/22/18 Subjective: Patient seen and examined afebrile evaluated by DR Mckeon for decubitus wound debridement evaluation Objective - Results Result Diagrams: 11/22/18 05:00 11/21/18 04:45 Recent Labs: Laboratory Last Values WBC 8.8 Th/cmm (4.8-10.8) 11/22/18 05:00 RBC 3.55 Mil/cmm (3.80-5.80) L 11/22/18 05:00 Hgb 10.1 gm/dL (12-16) L 11/22/18 05:00 Hct 30.4 % (41.0-60) L 11/22/18 05:00 MCV 85.5 fl (80-99) 11/22/18 05:00 MCH 28.4 pg (27.0-31.0) 11/22/18 05:00 MCHC Differential 33.2 pg (28.0-36.0) 11/22/18 05:00 RDW 15.2 % (11.5-20.0) 11/22/18 05:00 Plt Count 229 Th/cmm (150-400) 11/22/18 05:00 MPV 9.1 fl 11/22/18 05:00 Add Manual Diff YES 11/21/18 04:45 Neutrophils % 82.2 % (40.0-80.0) H 11/22/18 05:00 Band Neutrophils % 0 % (0-10) 11/21/18 04:45 Lymphocytes % 12.1 % (20.0-50.0) L 11/22/18 05:00 Monocytes % 4.6 % (2.0-10.0) 11/22/18 05:00 Eosinophils % 0.7 % (0.0-5.0) 11/22/18 05:00 Basophils % 0.4 % (0.0-2.0) 11/22/18 05:00 Neutrophils (Manual) 89 % (40-80) H 11/21/18 04:45 Lymphocytes 8 % (20-50) L 11/21/18 04:45 Monocytes 2 % (2-10) 11/21/18 04:45 Eosinophils 1 % (0-5) 11/21/18 04:45 Basophils 0 % (0-3) 11/21/18 04:45 Platelet Estimate ADEQUATE (NORMAL) 11/21/18 04:45 Specimen Source Arterial 11/22/18 09:00 Sample Site Left Radial 11/22/18 09:00 pH 7.471 (7.35-7.45) H 11/22/18 09:00 pCO2 35.0 mmHg (35.0-45.0) 11/22/18 09:00 pO2 58.5 mmHg (80.0-100.0) L 11/22/18 09:00 HCO3 25.0 mEq/L (20.0-26.0) 11/22/18 09:00 Base Excess 1.8 mEq/L (-3.0-3.0) 11/22/18 09:00 O2 Saturation 92.0 % (92.0-100.0) 11/22/18 09:00 Ramos Test Positive 11/22/18 09:00 Vent Rate N/A 11/22/18 09:00 Inspired O2 32 11/22/18 09:00 Tidal Volume N/A 11/22/18 09:00 PEEP N/A 11/22/18 09:00 Pressure (ins/psv/peep) N/A 11/22/18 09:00 Critical Value DM 11/22/18 09:00 Sodium 146 mEq/L (136-145) H 11/21/18 04:45 Potassium 3.8 mEq/L (3.5-5.1) 11/21/18 04:45 Chloride 104 mEq/L (98-107) 11/21/18 04:45 Carbon Dioxide 27.6 mEq/L (21.0-31.0) 11/21/18 04:45 Anion Gap 18.2 (7.0-16.0) H 11/21/18 04:45 BUN 24 mg/dL (7-25) 11/21/18 04:45 Creatinine 3.9 mg/dL (0.7-1.3) H 11/21/18 04:45 Est GFR ( Amer) TNP 11/21/18 04:45 Est GFR (Non-Af Amer) TNP 11/21/18 04:45 BUN/Creatinine Ratio 6.2 11/21/18 04:45 Glucose 77 mg/dL (70-105) 11/21/18 04:45 POC Glucose 103 MG/DL (70 - 105) 11/22/18 16:18 Calcium 9.4 mg/dL (8.6-10.3) 11/21/18 04:45 Phosphorus 2.6 mg/dL (2.5-5.0) 11/21/18 04:45 Magnesium 1.6 mg/dL (1.9-2.7) L 11/20/18 05:00 Total Bilirubin 0.5 mg/dL (0.3-1.0) 11/20/18 05:00 AST 19 U/L (13-39) 11/20/18 05:00 ALT 9 U/L (7-52) 11/20/18 05:00 Alkaline Phosphatase 74 U/L (34-104) 11/20/18 05:00 Total Protein 6.0 gm/dL (6.0-8.3) 11/20/18 05:00 Albumin 2.8 gm/dL (4.2-5.5) L 11/20/18 05:00 Globulin 3.2 gm/dL 11/20/18 05:00 Albumin/Globulin Ratio 0.9 (1.0-1.8) L 11/20/18 05:00 - Physical Exam Vitals and I&O: Vital Signs Temp 98.1 F 11/22/18 20:00 Pulse 83 11/22/18 20:00 Resp 18 11/22/18 20:00 BP 154/52 11/22/18 20:00 Pulse Ox 95 11/22/18 20:00 Intake & Output 11/22/18 11/22/18 11/23/18 06:59 18:59 06:59 Intake Total 50 240 Output Total 1 Balance 49 240 Weight (lbs) 71.214 kg 71.214 kg Intake: Intake, IV Amount 50 [id number] 1 gm In 50 Sodium Chloride 0.9% 50 ml @ 100 mls/hr IV Q24HR [facility] Rx#:[id number] Oral 240 Output: Urine 1 Other: # Voids 2 # Bowel Movements 0 1 Stool Characteristics Soft Brown Weight Source Bedscale Bedscale Active Medications: Current Medications Acetaminophen (Tylenol) 500 mg PO Q4HR PRN PRN Reason: Mild Pain Or Fever above 101 Stop: 01/17/19 20:18 Albuterol Sulfate (Albuterol 2.5mg/3ml Neb Ud) 2.5 mg HHN Q2H PRN PRN Reason: Shortness of Breath Stop: 01/17/19 23:27 Last Admin: 11/19/18 14:06 Dose: 2.5 mg Albuterol/Ipratropium (Duoneb Neb) 3 ml HHN [id number] [facility] Stop: 01/20/19 14:59 Last Admin: 11/22/18 19:44 Dose: 3 ml Ascorbic Acid (Vitamin C) 500 mg PO DAILY [facility] Stop: 01/18/19 08:59 Last Admin: 11/22/18 08:11 Dose: 500 mg Bisacodyl (Dulcolax 10 Mg Supp) 10 mg RC DAILY PRN PRN Reason: Constipation Stop: 01/17/19 23:48 Budesonide (Pulmicort) 0.5 mg HHN BIDRT [facility] Stop: 01/20/19 18:59 Last Admin: 11/22/18 19:44 Dose: 0.5 mg Carvedilol (Coreg) 3.125 mg PO BID [facility] Stop: 01/18/19 08:59 Last Admin: 11/22/18 16:14 Dose: 3.125 mg [place] Oil/[place] Balsam/Trypsin (Venelex) 1 appl TP DAILY [facility] Stop: 01/18/19 16:59 Last Admin: 11/22/18 08:12 Dose: 1 appl Dextrose (Dextrose 25%) 10 ml IVP PRN PRN PRN Reason: UD Dextrose (D50w) 50 ml IVP PRN PRN PRN Reason: Blood Glucose less than 70 Stop: 01/18/19 00:13 Dextrose (Glutose 40%) 18.75 gm PO PRN PRN PRN Reason: Blood Glucose less than 70 Stop: 01/18/19 00:13 Epoetin Kenney (Epogen) 10,000 units SUBQ [id number] [facility] Stop: 01/18/19 16:59 Last Admin: 11/21/18 17:15 Dose: 10,000 units Ferrous Sulfate (Iron) 300 mg PO DAILY [facility] Stop: 01/18/19 08:59 Last Admin: 11/22/18 08:11 Dose: 300 mg Folic Acid (Folate) 1 mg PO DAILY [facility] Stop: 01/18/19 08:59 Last Admin: 11/22/18 08:11 Dose: 1 mg Glucagon (Glucagen) 1 mg IM PRN PRN PRN Reason: Blood Glucose less than 70 Stop: 01/18/19 00:13 Hydralazine HCl (Apresoline) 50 mg PO Q12H [facility] Stop: 01/17/19 22:29 Last Admin: 11/22/18 11:24 Dose: 50 mg Ceftriaxone Sodium 1 gm/ (Sodium Chloride) 50 mls @ 100 mls/hr IV Q24HR [facility] Stop: 11/24/18 20:59 Last Admin: 11/22/18 20:09 Dose: 100 mls/hr Azithromycin 500 mg/ Sodium (Chloride) 250 mls @ 250 mls/hr IV Q24HR [facility] Stop: 11/24/18 21:59 Last Admin: 11/21/18 21:43 Dose: 250 mls/hr Insulin Human Lispro (Humalog Insulin Sliding Scale) 0 units SUBQ ACHS [facility]; Protocol Stop: 01/18/19 07:29 Last Admin: 11/22/18 16:19 Dose: Not Given Ondansetron HCl (Zofran) 4 mg IV Q6H PRN PRN Reason: Nausea / Vomiting Stop: 01/17/19 20:12 Sodium Phosphate (Fleet Enema) 135 ml RC PRN PRN PRN Reason: Constipation Stop: 01/17/19 23:48 Zinc Sulfate (Zinc Sulfate) 220 mg PO DAILY [facility] Stop: 01/18/19 08:59 Last Admin: 11/22/18 08:11 Dose: 220 mg General: Other (confused) HEENT: Atraumatic Cardiovascular: Regular rate Lungs: Other (rales) Abdomen: Soft Extremities: Edema - Procedures Procedures: Procedures Procedure Code Date EXCISION OF SIGMOID COLON, ENDO [id number] 08/19/18 EXCISION OF STOMACH, ENDO, DIAGN [id number] 08/19/18 PERFORMANCE OF URINARY FILTRATION, <6 HRS/DAY [id number] 08/19/18 TRANSFUSE NONAUT RED BLOOD CELLS IN PERIPH VEIN, PERC 72436Z6 08/19/18 Assessment/Plan - Assessment Assessment: Pneumonia Dysphagia ESRD on HD Stage IV decubitus wound Malnutrition HTN Mental health disorder - Plan Plan: Awaiting Hospice eval Per patient's nurse CHRIS Patient's niece SADIA doesn't want to be called for any patient related matter. She in fact gave us patient's sister's phone number to communicate now onwards. She also refuse to sign POLST and make her requests official e.g. stopping HD. will have SS contact patient's sister to discuss patient's condition and plan of care. meantime we will continue all the treatment. Plan of care discussed with nursing staff. Nutritional Asmnt/Malnutr-PDOC - Dietary Evaluation Malnutrition Findings (Please click <Entered> for more info): Nutritional Asmnt/Malnutrition Start: 11/21/18 16: 05 Text: Status: Complete Freq: Protocol: Document 11/21/18 16:05 [email or web address] (Rec: 11/21/18 16:17 [email or web address]) Nutritional Asmnt/Malnutrition Patient General Information Nutritional Screening High Risk Diagnosis PNA, dehydration Pertinent Medical Hx/Surgical Hx ESRD on HD, dementia, DM, HTN, dysphagia, malnutrition Subjective Information Pt asleep at visit, no family present; unable to obtain hx. PO intake 11/19 50-100-50%, 11/20 0% intake all meals per flowsheet; 11/21 90% breakfast, 50% lunch per RN= average po x 8 meals 43%. Niece feeds pt when present per RN, made aware of recs. Pt on dialysis. No noted food allergy. Discuccsed case with WOCN. Current Diet Order/ Nutrition Support renal 80g protein, NCS wtih nectar-thick liquids Patient / S.O Not Indicated Pertinent Medications vitamin C, IV abx, ferrous sulfate, folic acid, glucagon, Humalog, zinc sulfate, PRN Zofran/enema Pertinent Labs (11/21) Cr 3.9 Nutritional Hx/Data Height 1.83 m Height (Calculated Centimeters) 182.9 Current Weight (lbs) 61.689 kg Weight (Calculated Kilograms) 61.7 Weight (Calculated Grams) 29244.6 Fence Body Weight 178 lb Body Mass Index (BMI) 18.4 Weight Status Underweight GI Symptoms GI Symptoms None Last BM 11/21 Difficult in: Swallowing Skin Integrity/Comment: stage IV pressure injury at sacrococcygeal area Estimated Nutritional Goals Calories/Kcals/Kg 30-35 Kcals Calculated 3096-4583 Protein g/k-93 Protein Calculated 1.2-1.5 Fluid: ml 1000+UOP Nutritional Problem 2. Problem Problem increased nutrient needs Etiology ESRD and wound healing Signs/Symptoms: on HD and stage IV sacralcoccygeal area 1. Problem Problem Inadequate po intake Etiology lack of appetite/medical condition Signs/Symptoms: 43% average intake x 8 meals Intervention/Recommendation Comments 1. liberalize to 80g protein diet (no K/Phos restriction), MARIANN, NCS with nectar-thick liquids 2. add Nepro TID 3. consider vitamin B complex/ vitC/folic acid for wound healing 4. continue zinc sulfate at this time 5. consider topical zinc oxide for wound healing Expected Outcomes/Goals Expected Outcomes/Goals 1. PO intake to meet at least 75% of nutritional needs. 2. Wt stability, skin to remain intact, labs to approach WNL. Anastasiya Adamson RD
[2018-11-22] MEDS: Azithromycin 500 MG in Sodium Chloride 0.9% 250 ML IV SCH (22:44)
[2018-11-22] MEDS: Albuterol Nebulizer 2.5mg/3mL HHN PRN (22:47)
[2018-11-23 06:12] LABS: ANION GAP 18.3 (7.0-16.0); BUN - UREA NITROGEN 35 mg/dL (7-25); CALCIUM SERUM 9.1 mg/dL (8.6-10.3); CHLORIDE 105 mEq/L (98-107); GLUCOSE 83 mg/dL (70-105); POTASSIUM SERUM 3.3 mEq/L (3.5-5.1); SODIUM SERUM 145 mEq/L (136-145)
[2018-11-23] MEDS: Budesonide 0.5 Mg/2 mL Ud HHN SCH ×2 (06:27→19:11)
[2018-11-23] MEDS: Albuterol/Ipratropium Neb 3 ML AERS HHN SCH ×3 (06:27→19:11)
[2018-11-23 06:59] LABS: CREATININE - SERUM 5.5 mg/dL (0.7-1.3)
[2018-11-23] MEDS: INSULIN LISPRO SLIDING SCALE 100 UNITS/ML UNIT SUBQ SCH ×4 (08:56→21:36)
[2018-11-23] MEDS: Apixaban 2.5 MG TABLET PO SCH ×2 (09:10→20:15)
[2018-11-23] MEDS: Ferrous Sulfate 300 MG/5 ML UDC PO SCH (09:10)
[2018-11-23] MEDS: Venelex 60gm Tube TP SCH (09:10)
[2018-11-23] MEDS: Multivitamin w/ Minerals Tab PO SCH (09:10)
--- NOTE | 2018-11-23 14:45 | General Progress Note ---
Subjective - Review of Systems Service Date: 11/23/18 Events since last encounter: apparently there has been a change in the mind of a family member to discontinue treatement patient has been receiving but Dr Kwan is bound to consents that have been obtained. The plan is to have the PCP resolve any family issues and then let me know on what treatments medical or surgical can be used for this man who now has a stage iv ulcer. The wound care nurse can call me to assist in the facilitation of rapid wound care healing if so desired by patient or family charter representative with power of quilting supervisor. I appreciate the opportunity to participate in the care of this patient. Objective - Results Result Diagrams: 11/22/18 05:00 11/23/18 05:20 Recent Labs: Laboratory Last Values WBC 8.8 Th/cmm (4.8-10.8) 11/22/18 05:00 RBC 3.55 Mil/cmm (3.80-5.80) L 11/22/18 05:00 Hgb 10.1 gm/dL (12-16) L 11/22/18 05:00 Hct 30.4 % (41.0-60) L 11/22/18 05:00 MCV 85.5 fl (80-99) 11/22/18 05:00 MCH 28.4 pg (27.0-31.0) 11/22/18 05:00 MCHC Differential 33.2 pg (28.0-36.0) 11/22/18 05:00 RDW 15.2 % (11.5-20.0) 11/22/18 05:00 Plt Count 229 Th/cmm (150-400) 11/22/18 05:00 MPV 9.1 fl 11/22/18 05:00 Add Manual Diff YES 11/21/18 04:45 Neutrophils % 82.2 % (40.0-80.0) H 11/22/18 05:00 Band Neutrophils % 0 % (0-10) 11/21/18 04:45 Lymphocytes % 12.1 % (20.0-50.0) L 11/22/18 05:00 Monocytes % 4.6 % (2.0-10.0) 11/22/18 05:00 Eosinophils % 0.7 % (0.0-5.0) 11/22/18 05:00 Basophils % 0.4 % (0.0-2.0) 11/22/18 05:00 Neutrophils (Manual) 89 % (40-80) H 11/21/18 04:45 Lymphocytes 8 % (20-50) L 11/21/18 04:45 Monocytes 2 % (2-10) 11/21/18 04:45 Eosinophils 1 % (0-5) 11/21/18 04:45 Basophils 0 % (0-3) 11/21/18 04:45 Platelet Estimate ADEQUATE (NORMAL) 11/21/18 04:45 Specimen Source Arterial 11/22/18 09:00 Sample Site Left Radial 11/22/18 09:00 pH 7.471 (7.35-7.45) H 11/22/18 09:00 pCO2 35.0 mmHg (35.0-45.0) 11/22/18 09:00 pO2 58.5 mmHg (80.0-100.0) L 11/22/18 09:00 HCO3 25.0 mEq/L (20.0-26.0) 11/22/18 09:00 Base Excess 1.8 mEq/L (-3.0-3.0) 11/22/18 09:00 O2 Saturation 92.0 % (92.0-100.0) 11/22/18 09:00 Ramos Test Positive 11/22/18 09:00 Vent Rate N/A 11/22/18 09:00 Inspired O2 32 11/22/18 09:00 Tidal Volume N/A 11/22/18 09:00 PEEP N/A 11/22/18 09:00 Pressure (ins/psv/peep) N/A 11/22/18 09:00 Critical Value DM 11/22/18 09:00 Sodium 145 mEq/L (136-145) 11/23/18 05:20 Potassium 3.3 mEq/L (3.5-5.1) L 11/23/18 05:20 Chloride 105 mEq/L (98-107) 11/23/18 05:20 Carbon Dioxide 25.0 mEq/L (21.0-31.0) 11/23/18 05:20 Anion Gap 18.3 (7.0-16.0) H 11/23/18 05:20 BUN 35 mg/dL (7-25) H 11/23/18 05:20 Creatinine 5.5 mg/dL (0.7-1.3) H* 11/23/18 05:20 Est GFR ( Amer) TNP 11/23/18 05:20 Est GFR (Non-Af Amer) TNP 11/23/18 05:20 BUN/Creatinine Ratio 6.4 11/23/18 05:20 Glucose 83 mg/dL (70-105) 11/23/18 05:20 POC Glucose 101 MG/DL (70 - 105) 11/23/18 11:42 Calcium 9.1 mg/dL (8.6-10.3) 11/23/18 05:20 Phosphorus 2.6 mg/dL (2.5-5.0) 11/21/18 04:45 Magnesium 1.6 mg/dL (1.9-2.7) L 11/20/18 05:00 Total Bilirubin 0.5 mg/dL (0.3-1.0) 11/20/18 05:00 AST 19 U/L (13-39) 11/20/18 05:00 ALT 9 U/L (7-52) 11/20/18 05:00 Alkaline Phosphatase 74 U/L (34-104) 11/20/18 05:00 Total Protein 6.0 gm/dL (6.0-8.3) 11/20/18 05:00 Albumin 2.8 gm/dL (4.2-5.5) L 11/20/18 05:00 Globulin 3.2 gm/dL 11/20/18 05:00 Albumin/Globulin Ratio 0.9 (1.0-1.8) L 11/20/18 05:00 - Physical Exam Vitals and I&O: Vital Signs Temp 98.2 F 11/23/18 11:35 Pulse 89 11/23/18 14:37 Resp 28 11/23/18 14:37 BP 132/57 11/23/18 11:35 Pulse Ox 96 11/23/18 14:37 Intake & Output 11/22/18 11/23/18 11/23/18 18:59 06:59 18:59 Intake Total 240 Output Total 2 Balance 238 Weight (lbs) 160 lb 14.4 oz Intake: Oral 240 Output: Urine 2 Other: # Voids 2 # Bowel Movements 2 Stool Characteristics Soft Soft Brown Brown Weight Source Bedscale Active Medications: Current Medications Acetaminophen (Tylenol) 500 mg PO Q4HR PRN PRN Reason: Mild Pain Or Fever above 101 Stop: 01/17/19 20:18 Albuterol Sulfate (Albuterol 2.5mg/3ml Neb Ud) 2.5 mg HHN Q2H PRN PRN Reason: Shortness of Breath Stop: 01/17/19 23:27 Last Admin: 11/22/18 22:47 Dose: 2.5 mg Albuterol/Ipratropium (Duoneb Neb) 3 ml HHN [id number] [facility] Stop: 01/20/19 14:59 Last Admin: 11/23/18 10:49 Dose: 3 ml Ascorbic Acid (Vitamin C) 500 mg PO DAILY [facility] Stop: 01/18/19 08:59 Last Admin: 11/23/18 09:10 Dose: 500 mg Bisacodyl (Dulcolax 10 Mg Supp) 10 mg RC DAILY PRN PRN Reason: Constipation Stop: 01/17/19 23:48 Budesonide (Pulmicort) 0.5 mg HHN BIDRT [facility] Stop: 01/20/19 18:59 Last Admin: 11/23/18 06:27 Dose: 0.5 mg Carvedilol (Coreg) 3.125 mg PO BID [facility] Stop: 01/18/19 08:59 Last Admin: 11/23/18 09:11 Dose: Not Given [place] Oil/[place] Balsam/Trypsin (Venelex) 1 appl TP DAILY [facility] Stop: 01/18/19 16:59 Last Admin: 11/23/18 09:10 Dose: 1 appl Dextrose (Dextrose 25%) 10 ml IVP PRN PRN PRN Reason: UD Dextrose (D50w) 50 ml IVP PRN PRN PRN Reason: Blood Glucose less than 70 Stop: 01/18/19 00:13 Dextrose (Glutose 40%) 18.75 gm PO PRN PRN PRN Reason: Blood Glucose less than 70 Stop: 01/18/19 00:13 Epoetin Ken[place] (Epogen) 10,000 units SUBQ [id number] [facility] Stop: 01/18/19 16:59 Last Admin: 11/21/18 17:15 Dose: 10,000 units Ferrous Sulfate (Iron) 300 mg PO DAILY [facility] Stop: 01/18/19 08:59 Last Admin: 11/23/18 09:10 Dose: 300 mg Folic Acid (Folate) 1 mg PO DAILY [facility] Stop: 01/18/19 08:59 Last Admin: 11/23/18 09:10 Dose: 1 mg Glucagon (Glucagen) 1 mg IM PRN PRN PRN Reason: Blood Glucose less than 70 Stop: 01/18/19 00:13 Hydralazine HCl (Apresoline) 50 mg PO Q12H [facility] Stop: 01/17/19 22:29 Last Admin: 11/23/18 10:06 Dose: 50 mg Ceftriaxone Sodium 1 gm/ (Sodium Chloride) 50 mls @ 100 mls/hr IV Q24HR [facility] Stop: 11/24/18 20:59 Last Admin: 11/22/18 20:09 Dose: 100 mls/hr Azithromycin 500 mg/ Sodium (Chloride) 250 mls @ 250 mls/hr IV Q24HR [facility] Stop: 11/24/18 21:59 Last Admin: 11/22/18 22:44 Dose: 250 mls/hr Insulin Human Lispro (Humalog Insulin Sliding Scale) 0 units SUBQ ACHS [facility]; Protocol Stop: 01/18/19 07:29 Last Admin: 11/23/18 11:43 Dose: Not Given Ondansetron HCl (Zofran) 4 mg IV Q6H PRN PRN Reason: Nausea / Vomiting Stop: 01/17/19 20:12 Sodium Phosphate (Fleet Enema) 135 ml RC PRN PRN PRN Reason: Constipation Stop: 01/17/19 23:48 Zinc Sulfate (Zinc Sulfate) 220 mg PO DAILY [facility] Stop: 01/18/19 08:59 Last Admin: 11/23/18 09:10 Dose: 220 mg General: Other (confused) HEENT: Atraumatic Cardiovascular: Regular rate Lungs: Other (rales) Abdomen: Soft Extremities: Edema - Procedures Procedures: Procedures Procedure Code Date EXCISION OF SIGMOID COLON, ENDO [id number] 08/19/18 EXCISION OF STOMACH, ENDO, DIAGN [id number] 08/19/18 PERFORMANCE OF URINARY FILTRATION, <6 HRS/DAY [id number] 08/19/18 TRANSFUSE NONAUT RED BLOOD CELLS IN PERIPH VEIN, PERC 11974W9 08/19/18 Nutritional Asmnt/Malnutr-PDOC - Dietary Evaluation Malnutrition Findings (Please click <Entered> for more info): Nutritional Asmnt/Malnutrition Start: 11/21/18 16: 05 Text: Status: Complete Freq: Protocol: Document 11/21/18 16:05 [email or web address] (Rec: 11/21/18 16:17 [email or web address]) Nutritional Asmnt/Malnutrition Patient General Information Nutritional Screening High Risk Diagnosis PNA, dehydration Pertinent Medical Hx/Surgical Hx ESRD on HD, dementia, DM, HTN, dysphagia, malnutrition Subjective Information Pt asleep at visit, no family present; unable to obtain hx. PO intake 11/19 50-100-50%, 11/20 0% intake all meals per flowsheet; 11/21 90% breakfast, 50% lunch per RN= average po x 8 meals 43%. Niece feeds pt when present per RN, made aware of recs. Pt on dialysis. No noted food allergy. Discuccsed case with WOCN. Current Diet Order/ Nutrition Support renal 80g protein, NCS wtih nectar-thick liquids Patient / S.O Not Indicated Pertinent Medications vitamin C, IV abx, ferrous sulfate, folic acid, glucagon, Humalog, zinc sulfate, PRN Zofran/enema Pertinent Labs (11/21) Cr 3.9 Nutritional Hx/Data Height 6 ft Height (Calculated Centimeters) 182.9 Current Weight (lbs) 136 lb Weight (Calculated Kilograms) 61.7 Weight (Calculated Grams) 66939.6 [place] Body Weight 178 lb Body Mass Index (BMI) 18.4 Weight Status Underweight GI Symptoms GI Symptoms None Last BM 11/21 Difficult in: Swallowing Skin Integrity/Comment: stage IV pressure injury at sacrococcygeal area Estimated Nutritional Goals Calories/Kcals/Kg 30-35 Kcals Calculated 2730-5473 Protein g/k-93 Protein Calculated 1.2-1.5 Fluid: ml 1000+UOP Nutritional Problem 2. Problem Problem increased nutrient needs Etiology ESRD and wound healing Signs/Symptoms: on HD and stage IV sacralcoccygeal area 1. Problem Problem Inadequate po intake Etiology lack of appetite/medical condition Signs/Symptoms: 43% average intake x 8 meals Intervention/Recommendation Comments 1. liberalize to 80g protein diet (no K/Phos restriction), MARIANN, NCS with nectar-thick liquids 2. add Nepro TID 3. consider vitamin B complex/ vitC/folic acid for wound healing 4. continue zinc sulfate at this time 5. consider topical zinc oxide for wound healing Expected Outcomes/Goals Expected Outcomes/Goals 1. PO intake to meet at least 75% of nutritional needs. 2. Wt stability, skin to remain intact, labs to approach WNL. Anastasiya Adamson RD
[2018-11-23] MEDS: Azithromycin 500 MG in Sodium Chloride 0.9% 250 ML IV SCH (20:15)
[2018-11-23] MEDS: cefTRIAXone 1 GM in Sodium Chloride 0.9% 50 ML IV SCH (21:10)
--- NOTE | 2018-11-23 23:14 | General Progress Note ---
Subjective - Review of Systems Service Date: 11/23/18 Subjective: Patient doing ok afebrile breathing ok no new concern reported Objective - Results Result Diagrams: 11/22/18 05:00 11/23/18 05:20 Recent Labs: Laboratory Last Values WBC 8.8 Th/cmm (4.8-10.8) 11/22/18 05:00 RBC 3.55 Mil/cmm (3.80-5.80) L 11/22/18 05:00 Hgb 10.1 gm/dL (12-16) L 11/22/18 05:00 Hct 30.4 % (41.0-60) L 11/22/18 05:00 MCV 85.5 fl (80-99) 11/22/18 05:00 MCH 28.4 pg (27.0-31.0) 11/22/18 05:00 MCHC Differential 33.2 pg (28.0-36.0) 11/22/18 05:00 RDW 15.2 % (11.5-20.0) 11/22/18 05:00 Plt Count 229 Th/cmm (150-400) 11/22/18 05:00 MPV 9.1 fl 11/22/18 05:00 Add Manual Diff YES 11/21/18 04:45 Neutrophils % 82.2 % (40.0-80.0) H 11/22/18 05:00 Band Neutrophils % 0 % (0-10) 11/21/18 04:45 Lymphocytes % 12.1 % (20.0-50.0) L 11/22/18 05:00 Monocytes % 4.6 % (2.0-10.0) 11/22/18 05:00 Eosinophils % 0.7 % (0.0-5.0) 11/22/18 05:00 Basophils % 0.4 % (0.0-2.0) 11/22/18 05:00 Neutrophils (Manual) 89 % (40-80) H 11/21/18 04:45 Lymphocytes 8 % (20-50) L 11/21/18 04:45 Monocytes 2 % (2-10) 11/21/18 04:45 Eosinophils 1 % (0-5) 11/21/18 04:45 Basophils 0 % (0-3) 11/21/18 04:45 Platelet Estimate ADEQUATE (NORMAL) 11/21/18 04:45 Specimen Source Arterial 11/22/18 09:00 Sample Site Left Radial 11/22/18 09:00 pH 7.471 (7.35-7.45) H 11/22/18 09:00 pCO2 35.0 mmHg (35.0-45.0) 11/22/18 09:00 pO2 58.5 mmHg (80.0-100.0) L 11/22/18 09:00 HCO3 25.0 mEq/L (20.0-26.0) 11/22/18 09:00 Base Excess 1.8 mEq/L (-3.0-3.0) 11/22/18 09:00 O2 Saturation 92.0 % (92.0-100.0) 11/22/18 09:00 Ramos Test Positive 11/22/18 09:00 Vent Rate N/A 11/22/18 09:00 Inspired O2 32 11/22/18 09:00 Tidal Volume N/A 11/22/18 09:00 PEEP N/A 11/22/18 09:00 Pressure (ins/psv/peep) N/A 11/22/18 09:00 Critical Value DM 11/22/18 09:00 Sodium 145 mEq/L (136-145) 11/23/18 05:20 Potassium 3.3 mEq/L (3.5-5.1) L 11/23/18 05:20 Chloride 105 mEq/L (98-107) 11/23/18 05:20 Carbon Dioxide 25.0 mEq/L (21.0-31.0) 11/23/18 05:20 Anion Gap 18.3 (7.0-16.0) H 11/23/18 05:20 BUN 35 mg/dL (7-25) H 11/23/18 05:20 Creatinine 5.5 mg/dL (0.7-1.3) H* 11/23/18 05:20 Est GFR ( Amer) TNP 11/23/18 05:20 Est GFR (Non-Af Amer) TNP 11/23/18 05:20 BUN/Creatinine Ratio 6.4 11/23/18 05:20 Glucose 83 mg/dL (70-105) 11/23/18 05:20 POC Glucose 88 MG/DL (70 - 105) 11/23/18 20:23 Calcium 9.1 mg/dL (8.6-10.3) 11/23/18 05:20 Phosphorus 2.6 mg/dL (2.5-5.0) 11/21/18 04:45 Magnesium 1.6 mg/dL (1.9-2.7) L 11/20/18 05:00 Total Bilirubin 0.5 mg/dL (0.3-1.0) 11/20/18 05:00 AST 19 U/L (13-39) 11/20/18 05:00 ALT 9 U/L (7-52) 11/20/18 05:00 Alkaline Phosphatase 74 U/L (34-104) 11/20/18 05:00 Total Protein 6.0 gm/dL (6.0-8.3) 11/20/18 05:00 Albumin 2.8 gm/dL (4.2-5.5) L 11/20/18 05:00 Globulin 3.2 gm/dL 11/20/18 05:00 Albumin/Globulin Ratio 0.9 (1.0-1.8) L 11/20/18 05:00 - Physical Exam Vitals and I&O: Vital Signs Temp 99.8 F 11/23/18 19:57 Pulse 92 11/23/18 21:35 Resp 18 11/23/18 20:00 BP 174/74 11/23/18 21:35 Pulse Ox 98 11/23/18 19:57 Intake & Output 11/23/18 11/23/18 11/24/18 06:59 18:59 06:59 Intake Total 540 Output Total 2 Balance 538 Weight (lbs) 72.983 kg 72.983 kg Intake: Intake, IV Amount 300 Azithromycin 500 mg In 250 Sodium Chloride 0.9% 250 ml @ 250 mls/hr IV Q24HR SUPRIYA Rx#:[id number] cefTRIAXone 1 gm In 50 Sodium Chloride 0.9% 50 ml @ 100 mls/hr IV Q24HR SUPRIYA Rx#:[id number] Oral 240 Output: Urine 2 Other: # Voids 2 1 # Bowel Movements 2 1 Stool Characteristics Soft Soft Soft Brown Brown Brown Weight Source Bedscale Bedscale Active Medications: Current Medications Acetaminophen (Tylenol) 500 mg PO Q4HR PRN PRN Reason: Mild Pain Or Fever above 101 Stop: 01/17/19 20:18 Albuterol Sulfate (Albuterol 2.5mg/3ml Neb Ud) 2.5 mg HHN Q2H PRN PRN Reason: Shortness of Breath Stop: 01/17/19 23:27 Last Admin: 11/22/18 22:47 Dose: 2.5 mg Albuterol/Ipratropium (Duoneb Neb) 3 ml HHN [id number] [facility] Stop: 01/20/19 14:59 Last Admin: 11/23/18 19:11 Dose: 3 ml Ascorbic Acid (Vitamin C) 500 mg PO DAILY [facility] Stop: 01/18/19 08:59 Last Admin: 11/23/18 09:10 Dose: 500 mg Bisacodyl (Dulcolax 10 Mg Supp) 10 mg RC DAILY PRN PRN Reason: Constipation Stop: 01/17/19 23:48 Budesonide (Pulmicort) 0.5 mg HHN BIDRT [facility] Stop: 01/20/19 18:59 Last Admin: 11/23/18 19:11 Dose: 0.5 mg Carvedilol (Coreg) 3.125 mg PO BID [facility] Stop: 01/18/19 08:59 Last Admin: 11/23/18 16:40 Dose: 3.125 mg [place] Oil/[place] Balsam/Trypsin (Venelex) 1 appl TP DAILY [facility] Stop: 01/18/19 16:59 Last Admin: 11/23/18 09:10 Dose: 1 appl Dextrose (Dextrose 25%) 10 ml IVP PRN PRN PRN Reason: UD Dextrose (D50w) 50 ml IVP PRN PRN PRN Reason: Blood Glucose less than 70 Stop: 01/18/19 00:13 Dextrose (Glutose 40%) 18.75 gm PO PRN PRN PRN Reason: Blood Glucose less than 70 Stop: 01/18/19 00:13 Epoetin Kenney (Epogen) 10,000 units SUBQ [id number]@1700 [facility] Stop: 01/18/19 16:59 Last Admin: 11/21/18 17:15 Dose: 10,000 units Ferrous Sulfate (Iron) 300 mg PO DAILY [facility] Stop: 01/18/19 08:59 Last Admin: 11/23/18 09:10 Dose: 300 mg Folic Acid (Folate) 1 mg PO DAILY [facility] Stop: 01/18/19 08:59 Last Admin: 11/23/18 09:10 Dose: 1 mg Glucagon (Glucagen) 1 mg IM PRN PRN PRN Reason: Blood Glucose less than 70 Stop: 01/18/19 00:13 Hydralazine HCl (Apresoline) 50 mg PO Q12H [facility] Stop: 01/17/19 22:29 Last Admin: 11/23/18 21:35 Dose: 50 mg Ceftriaxone Sodium 1 gm/ (Sodium Chloride) 50 mls @ 100 mls/hr IV Q24HR [facility] Stop: 11/24/18 20:59 Last Admin: 11/23/18 21:10 Dose: 100 mls/hr Azithromycin 500 mg/ Sodium (Chloride) 250 mls @ 250 mls/hr IV Q24HR [facility] Stop: 11/24/18 21:59 Last Admin: 11/23/18 20:15 Dose: 250 mls/hr Insulin Human Lispro (Humalog Insulin Sliding Scale) 0 units SUBQ ACHS [facility]; Protocol Stop: 01/18/19 07:29 Last Admin: 11/23/18 21:36 Dose: Not Given Ondansetron HCl (Zofran) 4 mg IV Q6H PRN PRN Reason: Nausea / Vomiting Stop: 01/17/19 20:12 Sodium Phosphate (Fleet Enema) 135 ml RC PRN PRN PRN Reason: Constipation Stop: 01/17/19 23:48 Zinc Sulfate (Zinc Sulfate) 220 mg PO DAILY [facility] Stop: 01/18/19 08:59 Last Admin: 11/23/18 09:10 Dose: 220 mg General: Other (confused) HEENT: Atraumatic Cardiovascular: Regular rate Lungs: Clear to auscultation, Other (rales) Abdomen: Soft Extremities: Edema - Procedures Procedures: Procedures Procedure Code Date EXCISION OF SIGMOID COLON, ENDO [id number] 08/19/18 EXCISION OF STOMACH, ENDO, DIAGN [id number] 08/19/18 PERFORMANCE OF URINARY FILTRATION, <6 HRS/DAY [id number] 08/19/18 TRANSFUSE NONAUT RED BLOOD CELLS IN PERIPH VEIN, PERC 41841V5 08/19/18 Assessment/Plan - Assessment Assessment: Pneumonia Dysphagia ESRD on HD Stage IV decubitus wound Malnutrition HTN Mental health disorder - Plan Plan: Continue current treatment HD per Nephrology Social service to contact pt's sister to discuss plan of care Awaiting hospice eval Nutritional Asmnt/Malnutr-PDOC - Dietary Evaluation Malnutrition Findings (Please click <Entered> for more info): Nutritional Asmnt/Malnutrition Start: 11/21/18 16: 05 Text: Status: Complete Freq: Protocol: Document 11/21/18 16:05 [email or web address] (Rec: 11/21/18 16:17 [email or web address]) Nutritional Asmnt/Malnutrition Patient General Information Nutritional Screening High Risk Diagnosis PNA, dehydration Pertinent Medical Hx/Surgical Hx ESRD on HD, dementia, DM, HTN, dysphagia, malnutrition Subjective Information Pt asleep at visit, no family present; unable to obtain hx. PO intake 11/19 50-100-50%, 11/20 0% intake all meals per flowsheet; 11/21 90% breakfast, 50% lunch per RN= average po x 8 meals 43%. Niece feeds pt when present per RN, made aware of recs. Pt on dialysis. No noted food allergy. Discuccsed case with WOCN. Current Diet Order/ Nutrition Support renal 80g protein, NCS wtih nectar-thick liquids Patient / S.O Not Indicated Pertinent Medications vitamin C, IV abx, ferrous sulfate, folic acid, glucagon, Humalog, zinc sulfate, PRN Zofran/enema Pertinent Labs (11/21) Cr 3.9 Nutritional Hx/Data Height 1.83 m Height (Calculated Centimeters) 182.9 Current Weight (lbs) 61.689 kg Weight (Calculated Kilograms) 61.7 Weight (Calculated Grams) 85724.6 [place] Body Weight 178 lb Body Mass Index (BMI) 18.4 Weight Status Underweight GI Symptoms GI Symptoms None Last BM 11/21 Difficult in: Swallowing Skin Integrity/Comment: stage IV pressure injury at sacrococcygeal area Estimated Nutritional Goals Calories/Kcals/Kg 30-35 Kcals Calculated 5138-2498 Protein g/k-93 Protein Calculated 1.2-1.5 Fluid: ml 1000+UOP Nutritional Problem 2. Problem Problem increased nutrient needs Etiology ESRD and wound healing Signs/Symptoms: on HD and stage IV sacralcoccygeal area 1. Problem Problem Inadequate po intake Etiology lack of appetite/medical condition Signs/Symptoms: 43% average intake x 8 meals Intervention/Recommendation Comments 1. liberalize to 80g protein diet (no K/Phos restriction), MARIANN, NCS with nectar-thick liquids 2. add Nepro TID 3. consider vitamin B complex/ vitC/folic acid for wound healing 4. continue zinc sulfate at this time 5. consider topical zinc oxide for wound healing Expected Outcomes/Goals Expected Outcomes/Goals 1. PO intake to meet at least 75% of nutritional needs. 2. Wt stability, skin to remain intact, labs to approach WNL. Anastasiya Adamson RD
--- NOTE | 2018-11-24 03:26 | Progress Notes ---
DATE: 11/23/2018 PULMONARY PROGRESS NOTE PROBLEM LIST: 1. Bilateral pneumonia. 2. Significant deconditioned disability. 3. Chronic renal failure, on hemodialysis. SYMPTOMS: Nil. The patient is quite lethargic, barely arousable to take any food as well. The patient is otherwise unremarkable. PHYSICAL EXAMINATION: VITAL SIGNS: The patient's recorded vitals: Temperature is 98, blood pressure 157/90, saturation 96. NECK: Veins not visualized. CHEST: Shows some ____ with diminished air entry. HEART: Regular. ABDOMEN: Soft, nontender. ASSESSMENT: The patient clinically is not much changed, quite lethargic, obtunded, high risk for aspiration. PLANS AND SUGGESTIONS: Discussed with the charge nurse. The patient family refuses any further aggressive testing as well as maneuver including no dialysis and await for hospice to evaluate. We will agree with that plans and see how he does and go from there. JOB# [id number]
[2018-11-24] MEDS: Albuterol/Ipratropium Neb 3 ML AERS HHN SCH ×4 (06:48→18:56)
[2018-11-24] MEDS: Budesonide 0.5 Mg/2 mL Ud HHN SCH ×2 (07:01→18:59)
[2018-11-24] MEDS: INSULIN LISPRO SLIDING SCALE 100 UNITS/ML UNIT SUBQ SCH ×4 (08:48→22:14)
[2018-11-24] MEDS: Multivitamin w/ Minerals Tab PO SCH (08:53)
[2018-11-24] MEDS: Ferrous Sulfate 300 MG/5 ML UDC PO SCH (08:53)
[2018-11-24] MEDS: Venelex 60gm Tube TP SCH (08:54)
[2018-11-24] MEDS: Apixaban 2.5 MG TABLET PO SCH ×2 (08:54→22:26)
--- NOTE | 2018-11-24 15:00 | Progress Notes ---
DATE: 11/18/2018 LOCATION: [facility], Room 11, Bed A. SUBJECTIVE: The patient is essentially same, not responding to verbal communication. The patient's family has refused for dialysis. OBJECTIVE: PHYSICAL EXAMINATION: VITAL SIGNS: Temperature 98.1, blood pressure 150/66, and respiratory rate 18. Yesterday's intake 540. HEART: Regular. LUNGS: Few rhonchi over the bases. ABDOMEN: Soft, not distended. EXTREMITIES: No edema. LABORATORY DATA: WBC 8.8, hemoglobin 10.1. Lab is not available for the last 2 days. Yesterday's sodium 145, potassium 3.3, and creatinine 5.5. ASSESSMENT: 1. Chronic kidney disease 5, on chronic hemodialysis. 2. Sacral decubiti ulcer. 3. Anemia. 4. Dementia. 5. Perm-A-Cath for dialysis right side. 6. Right upper extremity AV fistula. PLAN: We will do hemodialysis once the patient's family agrees. oyster worker is involved. Family has refused for the blood test and dialysis according to nursing staff. I will discuss this with Dr. Kwan. JOB# [id number]
[2018-11-24] MEDS: Epoetin Alfa 20000 Units/mL Vial SUBQ SCH (16:19)
[2018-11-24 18:48] LABS: HEMATOCRIT 30.7 % (41.0-60); HEMOGLOBIN 10.5 gm/dL (12-16); MEAN CELL VOLUME 85.2 fl (80-99); MEAN CORPUSCULAR HEMOGLOBIN 29.1 pg (27.0-31.0); MEAN CORPUSCULAR HGB CONC 34.1 pg (28.0-36.0); PLATELET COUNT 289 Th/cmm (150-400); RED CELL DISTRIBUTION WIDTH 15.2 % (11.5-20.0); WHITE BLOOD COUNT 9.8 Th/cmm (4.8-10.8)
[2018-11-24 18:59] LABS: ANION GAP 19.3 (7.0-16.0); BUN - UREA NITROGEN 45 mg/dL (7-25); CALCIUM SERUM 9.6 mg/dL (8.6-10.3); CARBON DIOXIDE 23.8 mEq/L (21.0-31.0); CHLORIDE 107 mEq/L (98-107); GLUCOSE 106 mg/dL (70-105); POTASSIUM SERUM 3.1 mEq/L (3.5-5.1); SODIUM SERUM 147 mEq/L (136-145)
[2018-11-24 19:34] LABS: CREATININE - SERUM 6.9 mg/dL (0.7-1.3)
[2018-11-24 20:04] LABS: BAND NEUTROPHILE 0 % (0-10); BASOPHIL 0 % (0-3); EOSINOPHIL 0 % (0-5); LYMPHOCYTE 9 % (20-50); MONOCYTE 4 % (2-10); NEUTROPHILS 87 % (40-80)
[2018-11-24] MEDS ORDERED: Heparin Sod 5,000Units/ML 5,000 UNITS/ML VIAL HD ONE (22:30)
--- NOTE | 2018-11-24 23:02 | General Progress Note ---
Subjective - Review of Systems Service Date: 11/24/18 Subjective: Patient seen and examined seems to have breathing difficulties requiring higher oxygen support Objective - Results Result Diagrams: 11/24/18 18:39 11/24/18 18:39 Recent Labs: Laboratory Last Values WBC 9.8 Th/cmm (4.8-10.8) 11/24/18 18:39 RBC 3.60 Mil/cmm (3.80-5.80) L 11/24/18 18:39 Hgb 10.5 gm/dL (12-16) L 11/24/18 18:39 Hct 30.7 % (41.0-60) L 11/24/18 18:39 MCV 85.2 fl (80-99) 11/24/18 18:39 MCH 29.1 pg (27.0-31.0) 11/24/18 18:39 MCHC Differential 34.1 pg (28.0-36.0) 11/24/18 18:39 RDW 15.2 % (11.5-20.0) 11/24/18 18:39 Plt Count 289 Th/cmm (150-400) 11/24/18 18:39 MPV 8.0 fl 11/24/18 18:39 Add Manual Diff YES 11/24/18 18:39 Neutrophils % 82.2 % (40.0-80.0) H 11/22/18 05:00 Band Neutrophils % 0 % (0-10) 11/24/18 18:39 Lymphocytes % 12.1 % (20.0-50.0) L 11/22/18 05:00 Monocytes % 4.6 % (2.0-10.0) 11/22/18 05:00 Eosinophils % 0.7 % (0.0-5.0) 11/22/18 05:00 Basophils % 0.4 % (0.0-2.0) 11/22/18 05:00 Neutrophils (Manual) 87 % (40-80) H 11/24/18 18:39 Lymphocytes 9 % (20-50) L 11/24/18 18:39 Monocytes 4 % (2-10) 11/24/18 18:39 Eosinophils 0 % (0-5) 11/24/18 18:39 Basophils 0 % (0-3) 11/24/18 18:39 Platelet Estimate ADEQUATE (NORMAL) 11/21/18 04:45 Specimen Source Arterial 11/22/18 09:00 Sample Site Left Radial 11/22/18 09:00 pH 7.471 (7.35-7.45) H 11/22/18 09:00 pCO2 35.0 mmHg (35.0-45.0) 11/22/18 09:00 pO2 58.5 mmHg (80.0-100.0) L 11/22/18 09:00 HCO3 25.0 mEq/L (20.0-26.0) 11/22/18 09:00 Base Excess 1.8 mEq/L (-3.0-3.0) 11/22/18 09:00 O2 Saturation 92.0 % (92.0-100.0) 11/22/18 09:00 Ramos Test Positive 11/22/18 09:00 Vent Rate N/A 11/22/18 09:00 Inspired O2 32 11/22/18 09:00 Tidal Volume N/A 11/22/18 09:00 PEEP N/A 11/22/18 09:00 Pressure (ins/psv/peep) N/A 11/22/18 09:00 Critical Value DM 11/22/18 09:00 Sodium 147 mEq/L (136-145) H 11/24/18 18:39 Potassium 3.1 mEq/L (3.5-5.1) L 11/24/18 18:39 Chloride 107 mEq/L (98-107) 11/24/18 18:39 Carbon Dioxide 23.8 mEq/L (21.0-31.0) 11/24/18 18:39 Anion Gap 19.3 (7.0-16.0) H 11/24/18 18:39 BUN 45 mg/dL (7-25) H 11/24/18 18:39 Creatinine 6.9 mg/dL (0.7-1.3) H* 11/24/18 18:39 Est GFR ( Amer) TNP 11/24/18 18:39 Est GFR (Non-Af Amer) TNP 11/24/18 18:39 BUN/Creatinine Ratio 6.5 11/24/18 18:39 Glucose 106 mg/dL (70-105) H 11/24/18 18:39 POC Glucose 127 MG/DL (70 - 105) H 11/24/18 22:03 Calcium 9.6 mg/dL (8.6-10.3) 11/24/18 18:39 Phosphorus 2.6 mg/dL (2.5-5.0) 11/21/18 04:45 Magnesium 1.6 mg/dL (1.9-2.7) L 11/20/18 05:00 Total Bilirubin 0.5 mg/dL (0.3-1.0) 11/20/18 05:00 AST 19 U/L (13-39) 11/20/18 05:00 ALT 9 U/L (7-52) 11/20/18 05:00 Alkaline Phosphatase 74 U/L (34-104) 11/20/18 05:00 Total Protein 6.0 gm/dL (6.0-8.3) 11/20/18 05:00 Albumin 2.8 gm/dL (4.2-5.5) L 11/20/18 05:00 Globulin 3.2 gm/dL 11/20/18 05:00 Albumin/Globulin Ratio 0.9 (1.0-1.8) L 11/20/18 05:00 - Physical Exam Vitals and I&O: Vital Signs Temp 100.6 F 11/24/18 20:00 Pulse 100 11/24/18 22:21 Resp 21 11/24/18 20:00 BP 103/60 11/24/18 22:21 Pulse Ox 94 11/24/18 20:00 Intake & Output 11/24/18 11/24/18 11/25/18 06:59 18:59 06:59 Intake Total 120 Output Total 1 1 Balance 119 -1 Weight (lbs) 74.389 kg 74.389 kg Intake: Oral 120 Output: Urine 1 Stool 1 Other: # Voids 2 # Bowel Movements 1 Stool Characteristics Soft Soft Brown Brown Weight Source Bedscale Bedscale Active Medications: Current Medications Acetaminophen (Tylenol) 500 mg PO Q4HR PRN PRN Reason: Mild Pain Or Fever above 101 Stop: 01/17/19 20:18 Albuterol Sulfate (Albuterol 2.5mg/3ml Neb Ud) 2.5 mg HHN Q2H PRN PRN Reason: Shortness of Breath Stop: 01/17/19 23:27 Last Admin: 11/22/18 22:47 Dose: 2.5 mg Albuterol/Ipratropium (Duoneb Neb) 3 ml HHN [id number] [facility] Stop: 01/20/19 14:59 Last Admin: 11/24/18 18:56 Dose: 3 ml Ascorbic Acid (Vitamin C) 500 mg PO DAILY [facility] Stop: 01/18/19 08:59 Last Admin: 11/24/18 08:53 Dose: 500 mg Bisacodyl (Dulcolax 10 Mg Supp) 10 mg RC DAILY PRN PRN Reason: Constipation Stop: 01/17/19 23:48 Budesonide (Pulmicort) 0.5 mg HHN BIDRT [facility] Stop: 01/20/19 18:59 Last Admin: 11/24/18 18:59 Dose: 0.5 mg Carvedilol (Coreg) 3.125 mg PO BID [facility] Stop: 01/18/19 08:59 Last Admin: 11/24/18 16:19 Dose: 3.125 mg [place] Oil/[place] Balsam/Trypsin (Venelex) 1 appl TP DAILY [facility] Stop: 01/18/19 16:59 Last Admin: 11/24/18 08:54 Dose: 1 appl Dextrose (Dextrose 25%) 10 ml IVP PRN PRN PRN Reason: UD Dextrose (D50w) 50 ml IVP PRN PRN PRN Reason: Blood Glucose less than 70 Stop: 01/18/19 00:13 Dextrose (Glutose 40%) 18.75 gm PO PRN PRN PRN Reason: Blood Glucose less than 70 Stop: 01/18/19 00:13 Epoetin [place] (Epogen) 10,000 units SUBQ MoWeFr@1700 [facility] Stop: 01/18/19 16:59 Last Admin: 11/24/18 16:19 Dose: 10,000 units Ferrous Sulfate (Iron) 300 mg PO DAILY [facility] Stop: 01/18/19 08:59 Last Admin: 11/24/18 08:53 Dose: 300 mg Folic Acid (Folate) 1 mg PO DAILY [facility] Stop: 01/18/19 08:59 Last Admin: 11/24/18 08:53 Dose: 1 mg Glucagon (Glucagen) 1 mg IM PRN PRN PRN Reason: Blood Glucose less than 70 Stop: 01/18/19 00:13 Hydralazine HCl (Apresoline) 50 mg PO Q12H [facility] Stop: 01/17/19 22:29 Last Admin: 11/24/18 22:21 Dose: Not Given Insulin Human Lispro (Humalog Insulin Sliding Scale) 0 units SUBQ ACHS [facility]; Protocol Stop: 01/18/19 07:29 Last Admin: 11/24/18 22:14 Dose: Not Given Ondansetron HCl (Zofran) 4 mg IV Q6H PRN PRN Reason: Nausea / Vomiting Stop: 01/17/19 20:12 Sodium Phosphate (Fleet Enema) 135 ml RC PRN PRN PRN Reason: Constipation Stop: 01/17/19 23:48 Zinc Sulfate (Zinc Sulfate) 220 mg PO DAILY [facility] Stop: 01/18/19 08:59 Last Admin: 11/24/18 08:53 Dose: 220 mg General: Other (Lethargic) HEENT: Atraumatic Cardiovascular: Regular rate Lungs: Clear to auscultation, Other (rales) Abdomen: Soft Extremities: Edema - Procedures Procedures: Procedures Procedure Code Date EXCISION OF SIGMOID COLON, ENDO [id number] 08/19/18 EXCISION OF STOMACH, ENDO, DIAGN [id number] 08/19/18 PERFORMANCE OF URINARY FILTRATION, <6 HRS/DAY [id number] 08/19/18 TRANSFUSE NONAUT RED BLOOD CELLS IN PERIPH VEIN, PERC [id number] 08/19/18 Assessment/Plan - Assessment Assessment: Pneumonia Dysphagia ESRD on HD Stage IV decubitus wound Malnutrition HTN Mental health disorder - Plan Plan: Case discussed with career services manager and social service who both has tried reaching out to the family today but unable to contact. No POLST available stating to stop HD. Patient seems to have breathing issue and fluid overload No HD since last week. Case discused with DR BORJA who ordered stat HD. Hospice evaluated the patient but unable to reach family for consent. Continue current treatment for now. Plan of care discussed with nursing staff. Nutritional Asmnt/Malnutr-PDOC - Dietary Evaluation Malnutrition Findings (Please click <Entered> for more info): Nutritional Asmnt/Malnutrition Start: 11/21/18 16: 05 Text: Status: Complete Freq: Protocol: Document 11/21/18 16:05 [email or web address] (Rec: 11/21/18 16:17 [email or web address]) Nutritional Asmnt/Malnutrition Patient General Information Nutritional Screening High Risk Diagnosis PNA, dehydration Pertinent Medical Hx/Surgical Hx ESRD on HD, dementia, DM, HTN, dysphagia, malnutrition Subjective Information Pt asleep at visit, no family present; unable to obtain hx. PO intake 11/19 50-100-50%, 11/20 0% intake all meals per flowsheet; 11/21 90% breakfast, 50% lunch per RN= average po x 8 meals 43%. Niece feeds pt when present per RN, made aware of recs. Pt on dialysis. No noted food allergy. Discuccsed case with WOCN. Current Diet Order/ Nutrition Support renal 80g protein, NCS wtih nectar-thick liquids Patient / S.O Not Indicated Pertinent Medications vitamin C, IV abx, ferrous sulfate, folic acid, glucagon, Humalog, zinc sulfate, PRN Zofran/enema Pertinent Labs (11/21) Cr 3.9 Nutritional Hx/Data Height 1.83 m Height (Calculated Centimeters) 182.9 Current Weight (lbs) 61.689 kg Weight (Calculated Kilograms) 61.7 Weight (Calculated Grams) 49729.6 [place] Body Weight 178 lb Body Mass Index (BMI) 18.4 Weight Status Underweight GI Symptoms GI Symptoms None Last BM 11/21 Difficult in: Swallowing Skin Integrity/Comment: stage IV pressure injury at sacrococcygeal area Estimated Nutritional Goals Calories/Kcals/Kg 30-35 Kcals Calculated 3167-3178 Protein g/k-93 Protein Calculated 1.2-1.5 Fluid: ml 1000+UOP Nutritional Problem 2. Problem Problem increased nutrient needs Etiology ESRD and wound healing Signs/Symptoms: on HD and stage IV sacralcoccygeal area 1. Problem Problem Inadequate po intake Etiology lack of appetite/medical condition Signs/Symptoms: 43% average intake x 8 meals Intervention/Recommendation Comments 1. liberalize to 80g protein diet (no K/Phos restriction), MARIANN, NCS with nectar-thick liquids 2. add Nepro TID 3. consider vitamin B complex/ vitC/folic acid for wound healing 4. continue zinc sulfate at this time 5. consider topical zinc oxide for wound healing Expected Outcomes/Goals Expected Outcomes/Goals 1. PO intake to meet at least 75% of nutritional needs. 2. Wt stability, skin to remain intact, labs to approach WNL. Anastasiya Adamson RD
--- NOTE | 2018-11-25 03:58 | Progress Notes ---
DATE: 11/24/2018 PULMONARY PROGRESS NOTE PROBLEM LIST: 1. Respiratory failure. 2. Suspect sleep apnea syndrome. 3. Altered level of consciousness, periodic and also poor ability to mobilize secretion. 4. Renal failure, question stop dialysis. SYMPTOMS: The patient barely opens eyes, sleeping with mouth open. Currently, on O2 by mask, no respiratory distress, etc. PHYSICAL EXAMINATION: VITAL SIGNS: T-max is 98.3, blood pressure is 146/89, and saturation is 94%. NECK: Veins not visualized. CHEST: Shows diminished air entry with occasional rhonchi. HEART: Regular. ABDOMEN: Soft, nontender. LABORATORY DATA: White count is 9.8 and hemoglobin is 10.3. Sodium is 147 and the patient's creatinine is 6.9 and BUN is 45. ASSESSMENT: The patient is status quo, doing poorly. PLANS AND SUGGESTIONS: Continue supportive care, agree with hospice that is what I was told by nursing staff. JOB# [id number]
[2018-11-25 05:03] LABS: HEMATOCRIT 31.8 % (41.0-60); HEMOGLOBIN 10.6 gm/dL (12-16); MEAN CELL VOLUME 85.4 fl (80-99); MEAN CORPUSCULAR HEMOGLOBIN 28.4 pg (27.0-31.0); MEAN CORPUSCULAR HGB CONC 33.2 pg (28.0-36.0); PLATELET COUNT 237 Th/cmm (150-400); RED BLOOD COUNT 3.72 Mil/cmm (3.80-5.80); RED CELL DISTRIBUTION WIDTH 15.8 % (11.5-20.0)
[2018-11-25 05:27] LABS: WHITE BLOOD COUNT 15.4 Th/cmm (4.8-10.8)
[2018-11-25 05:57] LABS: ALB/GLOB RATIO 0.8 (1.0-1.8); ALBUMIN 2.7 gm/dL (4.2-5.5); ALKALINE PHOSPHATASE 71 U/L (34-104); ANION GAP 16.7 (7.0-16.0); BILIRUBIN,TOTAL 0.5 mg/dL (0.3-1.0); BUN - UREA NITROGEN 29 mg/dL (7-25); CALCIUM SERUM 9.5 mg/dL (8.6-10.3); CARBON DIOXIDE 26.4 mEq/L (21.0-31.0); CHLORIDE 103 mEq/L (98-107); GLUCOSE 96 mg/dL (70-105); PHOSPHOROUS 3.4 mg/dL (2.5-5.0); POTASSIUM SERUM 3.1 mEq/L (3.5-5.1); SGOT 21 U/L (13-39); SGPT/ALT 12 U/L (7-52); SODIUM SERUM 143 mEq/L (136-145); TOTAL PROTEIN,SERUM 6.3 gm/dL (6.0-8.3)
[2018-11-25] MEDS: INSULIN LISPRO SLIDING SCALE 100 UNITS/ML UNIT SUBQ SCH ×4 (06:54→21:05)
[2018-11-25 07:11] LABS: BAND NEUTROPHILE 0 % (0-10); BASOPHIL 0 % (0-3); EOSINOPHIL 0 % (0-5); LYMPHOCYTE 6 % (20-50); MONOCYTE 3 % (2-10); NEUTROPHILS 91 % (40-80)
[2018-11-25] MEDS: Budesonide 0.5 Mg/2 mL Ud HHN SCH ×2 (07:20→19:54)
[2018-11-25] MEDS: Albuterol/Ipratropium Neb 3 ML AERS HHN SCH ×4 (07:36→19:54)
[2018-11-25 07:53] LABS: MAGNESIUM 1.9 mg/dL (1.9-2.7)
--- NOTE | 2018-11-25 08:46 | General Progress Note ---
Subjective - Review of Systems Service Date: 11/25/18 Events since last encounter: awaiting further advanced directives for plan and decision for consent to treat decubitus ulcer and further care to continue with [facility] wound care nurse Objective - Results Result Diagrams: 11/25/18 04:35 11/25/18 04:35 Recent Labs: Laboratory Last Values WBC 15.4 Th/cmm (4.8-10.8) H D 11/25/18 04:35 RBC 3.72 Mil/cmm (3.80-5.80) L 11/25/18 04:35 Hgb 10.6 gm/dL (12-16) L 11/25/18 04:35 Hct 31.8 % (41.0-60) L 11/25/18 04:35 MCV 85.4 fl (80-99) 11/25/18 04:35 MCH 28.4 pg (27.0-31.0) 11/25/18 04:35 MCHC Differential 33.2 pg (28.0-36.0) 11/25/18 04:35 RDW 15.8 % (11.5-20.0) 11/25/18 04:35 Plt Count 237 Th/cmm (150-400) 11/25/18 04:35 MPV 9.1 fl 11/25/18 04:35 Add Manual Diff YES 11/25/18 04:35 Neutrophils % 82.2 % (40.0-80.0) H 11/22/18 05:00 Band Neutrophils % 0 % (0-10) 11/25/18 04:35 Lymphocytes % 12.1 % (20.0-50.0) L 11/22/18 05:00 Monocytes % 4.6 % (2.0-10.0) 11/22/18 05:00 Eosinophils % 0.7 % (0.0-5.0) 11/22/18 05:00 Basophils % 0.4 % (0.0-2.0) 11/22/18 05:00 Neutrophils (Manual) 91 % (40-80) H 11/25/18 04:35 Lymphocytes 6 % (20-50) L 11/25/18 04:35 Monocytes 3 % (2-10) 11/25/18 04:35 Eosinophils 0 % (0-5) 11/25/18 04:35 Basophils 0 % (0-3) 11/25/18 04:35 Platelet Estimate ADEQUATE (NORMAL) 11/21/18 04:45 Specimen Source Arterial 11/22/18 09:00 Sample Site Left Radial 11/22/18 09:00 pH 7.471 (7.35-7.45) H 11/22/18 09:00 pCO2 35.0 mmHg (35.0-45.0) 11/22/18 09:00 pO2 58.5 mmHg (80.0-100.0) L 11/22/18 09:00 HCO3 25.0 mEq/L (20.0-26.0) 11/22/18 09:00 Base Excess 1.8 mEq/L (-3.0-3.0) 11/22/18 09:00 O2 Saturation 92.0 % (92.0-100.0) 11/22/18 09:00 Ramos Test Positive 11/22/18 09:00 Vent Rate N/A 11/22/18 09:00 Inspired O2 32 11/22/18 09:00 Tidal Volume N/A 11/22/18 09:00 PEEP N/A 11/22/18 09:00 Pressure (ins/psv/peep) N/A 11/22/18 09:00 Critical Value DM 11/22/18 09:00 Sodium 143 mEq/L (136-145) 11/25/18 04:35 Potassium 3.1 mEq/L (3.5-5.1) L 11/25/18 04:35 Chloride 103 mEq/L (98-107) 11/25/18 04:35 Carbon Dioxide 26.4 mEq/L (21.0-31.0) 11/25/18 04:35 Anion Gap 16.7 (7.0-16.0) H 11/25/18 04:35 BUN 29 mg/dL (7-25) H 11/25/18 04:35 Creatinine 5.0 mg/dL (0.7-1.3) H* 11/25/18 04:35 Est GFR ( Amer) TNP 11/25/18 04:35 Est GFR (Non-Af Amer) TNP 11/25/18 04:35 BUN/Creatinine Ratio 5.8 11/25/18 04:35 Glucose 96 mg/dL (70-105) 11/25/18 04:35 POC Glucose 100 MG/DL (70 - 105) 11/25/18 06:21 Calcium 9.5 mg/dL (8.6-10.3) 11/25/18 04:35 Phosphorus 3.4 mg/dL (2.5-5.0) 11/25/18 04:35 Magnesium 1.9 mg/dL (1.9-2.7) 11/25/18 04:35 Total Bilirubin 0.5 mg/dL (0.3-1.0) 11/25/18 04:35 AST 21 U/L (13-39) 11/25/18 04:35 ALT 12 U/L (7-52) 11/25/18 04:35 Alkaline Phosphatase 71 U/L (34-104) 11/25/18 04:35 Total Protein 6.3 gm/dL (6.0-8.3) 11/25/18 04:35 Albumin 2.7 gm/dL (4.2-5.5) L 11/25/18 04:35 Globulin 3.6 gm/dL 11/25/18 04:35 Albumin/Globulin Ratio 0.8 (1.0-1.8) L 11/25/18 04:35 - Physical Exam Vitals and I&O: Vital Signs Temp 98.7 F 11/25/18 04:00 Pulse 87 11/25/18 07:21 Resp 18 11/25/18 07:21 BP 114/56 11/25/18 04:00 Pulse Ox 99 11/25/18 07:21 Intake & Output 11/24/18 11/25/18 11/25/18 18:59 06:59 18:59 Output Total 1 500 Balance -1 -500 Weight (lbs) 164 lb 160 lb Output: Stool 1 Hemodialysis 500 Other: # Bowel Movements 1 Stool Characteristics Soft Soft Brown Brown Weight Source Bedscale Estimated Active Medications: Current Medications Acetaminophen (Tylenol) 500 mg PO Q4HR PRN PRN Reason: Mild Pain Or Fever above 101 Stop: 01/17/19 20:18 Albuterol Sulfate (Albuterol 2.5mg/3ml Neb Ud) 2.5 mg HHN Q2H PRN PRN Reason: Shortness of Breath Stop: 01/17/19 23:27 Last Admin: 11/22/18 22:47 Dose: 2.5 mg Albuterol/Ipratropium (Duoneb Neb) 3 ml HHN [id number] [facility] Stop: 01/20/19 14:59 Last Admin: 11/25/18 07:36 Dose: 3 ml Ascorbic Acid (Vitamin C) 500 mg PO DAILY [facility] Stop: 01/18/19 08:59 Last Admin: 11/24/18 08:53 Dose: 500 mg Bisacodyl (Dulcolax 10 Mg Supp) 10 mg RC DAILY PRN PRN Reason: Constipation Stop: 01/17/19 23:48 Budesonide (Pulmicort) 0.5 mg HHN BIDRT [facility] Stop: 01/20/19 18:59 Last Admin: 11/25/18 07:20 Dose: 0.5 mg Carvedilol (Coreg) 3.125 mg PO BID [facility] Stop: 01/18/19 08:59 Last Admin: 11/24/18 16:19 Dose: 3.125 mg [place] Oil/[place] Balsam/Trypsin (Venelex) 1 appl TP DAILY [facility] Stop: 01/18/19 16:59 Last Admin: 11/24/18 08:54 Dose: 1 appl Dextrose (Dextrose 25%) 10 ml IVP PRN PRN PRN Reason: UD Dextrose (D50w) 50 ml IVP PRN PRN PRN Reason: Blood Glucose less than 70 Stop: 01/18/19 00:13 Dextrose (Glutose 40%) 18.75 gm PO PRN PRN PRN Reason: Blood Glucose less than 70 Stop: 01/18/19 00:13 Epoetin Kenney (Epogen) 10,000 units SUBQ [id number] [facility] Stop: 01/18/19 16:59 Last Admin: 11/24/18 16:19 Dose: 10,000 units Ferrous Sulfate (Iron) 300 mg PO DAILY [facility] Stop: 01/18/19 08:59 Last Admin: 11/24/18 08:53 Dose: 300 mg Folic Acid (Folate) 1 mg PO DAILY [facility] Stop: 01/18/19 08:59 Last Admin: 11/24/18 08:53 Dose: 1 mg Glucagon (Glucagen) 1 mg IM PRN PRN PRN Reason: Blood Glucose less than 70 Stop: 01/18/19 00:13 Hydralazine HCl (Apresoline) 50 mg PO Q12H [facility] Stop: 01/17/19 22:29 Last Admin: 11/24/18 22:21 Dose: Not Given Insulin Human Lispro (Humalog Insulin Sliding Scale) 0 units SUBQ ACHS [facility]; Protocol Stop: 01/18/19 07:29 Last Admin: 11/25/18 06:54 Dose: Not Given Miscellaneous (Tpn Per Pharmacy) 1 ea MC PRN PRN PRN Reason: PROTOCOL Stop: 01/24/19 06:27 Ondansetron HCl (Zofran) 4 mg IV Q6H PRN PRN Reason: Nausea / Vomiting Stop: 01/17/19 20:12 Sodium Phosphate (Fleet Enema) 135 ml RC PRN PRN PRN Reason: Constipation Stop: 01/17/19 23:48 Zinc Sulfate (Zinc Sulfate) 220 mg PO DAILY [facility] Stop: 01/18/19 08:59 Last Admin: 11/24/18 08:53 Dose: 220 mg General: Other (Lethargic) HEENT: Atraumatic Cardiovascular: Regular rate Lungs: Clear to auscultation, Other (rales) Abdomen: Soft Extremities: Edema - Procedures Procedures: Procedures Procedure Code Date EXCISION OF SIGMOID COLON, ENDO [id number] 08/19/18 EXCISION OF STOMACH, ENDO, DIAGN [id number] 08/19/18 PERFORMANCE OF URINARY FILTRATION, <6 HRS/DAY [id number] 08/19/18 TRANSFUSE NONAUT RED BLOOD CELLS IN PERIPH VEIN, PERC 12853D5 08/19/18 Nutritional Asmnt/Malnutr-PDOC - Dietary Evaluation Malnutrition Findings (Please click <Entered> for more info): Nutritional Asmnt/Malnutrition Start: 11/21/18 16: 05 Text: Status: Complete Freq: Protocol: Document 11/21/18 16:05 [email or web address] (Rec: 11/21/18 16:17 [email or web address]) Nutritional Asmnt/Malnutrition Patient General Information Nutritional Screening High Risk Diagnosis PNA, dehydration Pertinent Medical Hx/Surgical Hx ESRD on HD, dementia, DM, HTN, dysphagia, malnutrition Subjective Information Pt asleep at visit, no family present; unable to obtain hx. PO intake 11/19 50-100-50%, 11/20 0% intake all meals per flowsheet; 11/21 90% breakfast, 50% lunch per RN= average po x 8 meals 43%. Niece feeds pt when present per RN, made aware of recs. Pt on dialysis. No noted food allergy. Discuccsed case with WOCN. Current Diet Order/ Nutrition Support renal 80g protein, NCS wtih nectar-thick liquids Patient / S.O Not Indicated Pertinent Medications vitamin C, IV abx, ferrous sulfate, folic acid, glucagon, Humalog, zinc sulfate, PRN Zofran/enema Pertinent Labs (11/21) Cr 3.9 Nutritional Hx/Data Height 6 ft Height (Calculated Centimeters) 182.9 Current Weight (lbs) 136 lb Weight (Calculated Kilograms) 61.7 Weight (Calculated Grams) 70922.6 [place] Body Weight 178 lb Body Mass Index (BMI) 18.4 Weight Status Underweight GI Symptoms GI Symptoms None Last BM 11/21 Difficult in: Swallowing Skin Integrity/Comment: stage IV pressure injury at sacrococcygeal area Estimated Nutritional Goals Calories/Kcals/Kg 30-35 Kcals Calculated 1268-9976 Protein g/k-93 Protein Calculated 1.2-1.5 Fluid: ml 1000+UOP Nutritional Problem 2. Problem Problem increased nutrient needs Etiology ESRD and wound healing Signs/Symptoms: on HD and stage IV sacralcoccygeal area 1. Problem Problem Inadequate po intake Etiology lack of appetite/medical condition Signs/Symptoms: 43% average intake x 8 meals Intervention/Recommendation Comments 1. liberalize to 80g protein diet (no K/Phos restriction), MARIANN, NCS with nectar-thick liquids 2. add Nepro TID 3. consider vitamin B complex/ vitC/folic acid for wound healing 4. continue zinc sulfate at this time 5. consider topical zinc oxide for wound healing Expected Outcomes/Goals Expected Outcomes/Goals 1. PO intake to meet at least 75% of nutritional needs. 2. Wt stability, skin to remain intact, labs to approach WNL. Anastasiya Adamson RD
[2018-11-25] MEDS: Multivitamin w/ Minerals Tab PO SCH (09:50)
[2018-11-25] MEDS: Ferrous Sulfate 300 MG/5 ML UDC PO SCH (09:50)
[2018-11-25] MEDS: Venelex 60gm Tube TP SCH (09:51)
[2018-11-25] MEDS: Apixaban 2.5 MG TABLET PO SCH ×2 (09:52→21:16)
[2018-11-25] MEDS ORDERED: KCL 20mEq/100mL Premix 20 MEQ/100 ML PIGGYBACK IV ONE (17:00)
[2018-11-25] MEDS ORDERED: Amino Acids 3% / Electrolytes 1,000 ML IV SCH (19:00)
[2018-11-25 19:58] LABS: INR 1.16 (0.5-1.4)
--- NOTE | 2018-11-25 21:10 | General Progress Note ---
Subjective - Review of Systems Service Date: 11/25/18 Subjective: Patient seen and examined seems lethargic with breathing difficulties Last night HD was stopped after few mins due to low BP Objective - Results Result Diagrams: 11/25/18 04:35 11/25/18 04:35 Recent Labs: Laboratory Last Values WBC 15.4 Th/cmm (4.8-10.8) H D 11/25/18 04:35 RBC 3.72 Mil/cmm (3.80-5.80) L 11/25/18 04:35 Hgb 10.6 gm/dL (12-16) L 11/25/18 04:35 Hct 31.8 % (41.0-60) L 11/25/18 04:35 MCV 85.4 fl (80-99) 11/25/18 04:35 MCH 28.4 pg (27.0-31.0) 11/25/18 04:35 MCHC Differential 33.2 pg (28.0-36.0) 11/25/18 04:35 RDW 15.8 % (11.5-20.0) 11/25/18 04:35 Plt Count 237 Th/cmm (150-400) 11/25/18 04:35 MPV 9.1 fl 11/25/18 04:35 Add Manual Diff YES 11/25/18 04:35 Neutrophils % 82.2 % (40.0-80.0) H 11/22/18 05:00 Band Neutrophils % 0 % (0-10) 11/25/18 04:35 Lymphocytes % 12.1 % (20.0-50.0) L 11/22/18 05:00 Monocytes % 4.6 % (2.0-10.0) 11/22/18 05:00 Eosinophils % 0.7 % (0.0-5.0) 11/22/18 05:00 Basophils % 0.4 % (0.0-2.0) 11/22/18 05:00 Neutrophils (Manual) 91 % (40-80) H 11/25/18 04:35 Lymphocytes 6 % (20-50) L 11/25/18 04:35 Monocytes 3 % (2-10) 11/25/18 04:35 Eosinophils 0 % (0-5) 11/25/18 04:35 Basophils 0 % (0-3) 11/25/18 04:35 Platelet Estimate ADEQUATE (NORMAL) 11/21/18 04:45 PT 12.0 SECONDS (9.5-11.5) H 11/25/18 19:35 INR 1.16 (0.5-1.4) 11/25/18 19:35 Specimen Source Arterial 11/22/18 09:00 Sample Site Left Radial 11/22/18 09:00 pH 7.471 (7.35-7.45) H 11/22/18 09:00 pCO2 35.0 mmHg (35.0-45.0) 11/22/18 09:00 pO2 58.5 mmHg (80.0-100.0) L 11/22/18 09:00 HCO3 25.0 mEq/L (20.0-26.0) 11/22/18 09:00 Base Excess 1.8 mEq/L (-3.0-3.0) 11/22/18 09:00 O2 Saturation 92.0 % (92.0-100.0) 11/22/18 09:00 Ramos Test Positive 11/22/18 09:00 Vent Rate N/A 11/22/18 09:00 Inspired O2 32 11/22/18 09:00 Tidal Volume N/A 11/22/18 09:00 PEEP N/A 11/22/18 09:00 Pressure (ins/psv/peep) N/A 11/22/18 09:00 Critical Value DM 11/22/18 09:00 Sodium 143 mEq/L (136-145) 11/25/18 04:35 Potassium 3.1 mEq/L (3.5-5.1) L 11/25/18 04:35 Chloride 103 mEq/L (98-107) 11/25/18 04:35 Carbon Dioxide 26.4 mEq/L (21.0-31.0) 11/25/18 04:35 Anion Gap 16.7 (7.0-16.0) H 11/25/18 04:35 BUN 29 mg/dL (7-25) H 11/25/18 04:35 Creatinine 5.0 mg/dL (0.7-1.3) H* 11/25/18 04:35 Est GFR ( Amer) TNP 11/25/18 04:35 Est GFR (Non-Af Amer) TNP 11/25/18 04:35 BUN/Creatinine Ratio 5.8 11/25/18 04:35 Glucose 96 mg/dL (70-105) 11/25/18 04:35 POC Glucose 118 MG/DL (70 - 105) H 11/25/18 17:49 Calcium 9.5 mg/dL (8.6-10.3) 11/25/18 04:35 Phosphorus 3.4 mg/dL (2.5-5.0) 11/25/18 04:35 Magnesium 1.9 mg/dL (1.9-2.7) 11/25/18 04:35 Total Bilirubin 0.5 mg/dL (0.3-1.0) 11/25/18 04:35 AST 21 U/L (13-39) 11/25/18 04:35 ALT 12 U/L (7-52) 11/25/18 04:35 Alkaline Phosphatase 71 U/L (34-104) 11/25/18 04:35 Total Protein 6.3 gm/dL (6.0-8.3) 11/25/18 04:35 Albumin 2.7 gm/dL (4.2-5.5) L 11/25/18 04:35 Globulin 3.6 gm/dL 11/25/18 04:35 Albumin/Globulin Ratio 0.8 (1.0-1.8) L 11/25/18 04:35 Triglycerides 75 mg/dL (<150) 11/25/18 04:35 Cholesterol 132 mg/dL (<200) 11/25/18 04:35 - Physical Exam Vitals and I&O: Vital Signs Temp 98.6 F 11/25/18 15:54 Pulse 115 11/25/18 19:55 Resp 36 11/25/18 19:55 BP 152/67 11/25/18 15:54 Pulse Ox 94 11/25/18 19:55 Intake & Output 11/25/18 11/25/18 11/26/18 06:59 18:59 06:59 Intake Total 0 Output Total 500 Balance -500 0 Weight (lbs) 72.575 kg 72.575 kg Intake: Oral 0 Output: Hemodialysis 500 Other: # Voids 0 # Bowel Movements 1 0 Stool Characteristics Soft Brown Brown Weight Source Estimated Bedscale Active Medications: Current Medications Acetaminophen (Tylenol) 500 mg PO Q4HR PRN PRN Reason: Mild Pain Or Fever above 101 Stop: 01/17/19 20:18 Albuterol Sulfate (Albuterol 2.5mg/3ml Neb Ud) 2.5 mg HHN Q2H PRN PRN Reason: Shortness of Breath Stop: 01/17/19 23:27 Last Admin: 11/22/18 22:47 Dose: 2.5 mg Albuterol/Ipratropium (Duoneb Neb) 3 ml HHN [id number] [facility] Stop: 01/20/19 14:59 Last Admin: 11/25/18 19:54 Dose: 3 ml Ascorbic Acid (Vitamin C) 500 mg PO DAILY [facility] Stop: 01/18/19 08:59 Last Admin: 11/25/18 09:50 Dose: 500 mg Bisacodyl (Dulcolax 10 Mg Supp) 10 mg RC DAILY PRN PRN Reason: Constipation Stop: 01/17/19 23:48 Budesonide (Pulmicort) 0.5 mg HHN BIDRT [facility] Stop: 01/20/19 18:59 Last Admin: 11/25/18 19:54 Dose: 0.5 mg Carvedilol (Coreg) 25 mg PO BID [facility] Stop: 01/25/19 08:59 [place] Oil/[place] Balsam/Trypsin (Venelex) 1 appl TP DAILY [facility] Stop: 01/18/19 16:59 Last Admin: 11/25/18 09:51 Dose: 1 appl Dextrose (Dextrose 25%) 10 ml IVP PRN PRN PRN Reason: UD Dextrose (D50w) 50 ml IVP PRN PRN PRN Reason: Blood Glucose less than 70 Stop: 01/18/19 00:13 Dextrose (Glutose 40%) 18.75 gm PO PRN PRN PRN Reason: Blood Glucose less than 70 Stop: 01/18/19 00:13 Epoetin [place] (Epogen) 10,000 units SUBQ [id number] [facility] Stop: 01/18/19 16:59 Last Admin: 11/24/18 16:19 Dose: 10,000 units Ferrous Sulfate (Iron) 300 mg PO DAILY [facility] Stop: 01/18/19 08:59 Last Admin: 11/25/18 09:50 Dose: 300 mg Folic Acid (Folate) 1 mg PO DAILY [facility] Stop: 01/18/19 08:59 Last Admin: 11/25/18 09:51 Dose: 1 mg Glucagon (Glucagen) 1 mg IM PRN PRN PRN Reason: Blood Glucose less than 70 Stop: 01/18/19 00:13 Hydralazine HCl (Apresoline) 50 mg PO Q12H [facility] Stop: 01/17/19 22:29 Last Admin: 11/25/18 09:50 Dose: 50 mg Amino Acids/Electrolytes (Procalamine) 1,000 mls @ 40 mls/hr IV .Q24H [facility] Stop: 01/24/19 18:59 Last Admin: 11/25/18 20:58 Dose: 40 mls/hr Piperacillin Sod/Tazobactam (Sod 3.375 gm/ Sodium Chloride) 50 mls @ 100 mls/ hr IV Q8HR [facility] Stop: 01/24/19 21:14 Insulin Human Lispro (Humalog Insulin Sliding Scale) 0 units SUBQ ACHS [facility]; Protocol Stop: 01/18/19 07:29 Last Admin: 11/25/18 21:05 Dose: Not Given Miscellaneous (Tpn Per Pharmacy) 1 ea MC PRN PRN PRN Reason: PROTOCOL Stop: 01/24/19 06:27 Ondansetron HCl (Zofran) 4 mg IV Q6H PRN PRN Reason: Nausea / Vomiting Stop: 01/17/19 20:12 Sodium Phosphate (Fleet Enema) 135 ml RC PRN PRN PRN Reason: Constipation Stop: 01/17/19 23:48 Zinc Sulfate (Zinc Sulfate) 220 mg PO DAILY [facility] Stop: 01/18/19 08:59 Last Admin: 11/25/18 09:51 Dose: 220 mg General: Other (Lethargic) HEENT: Atraumatic Cardiovascular: Regular rate Lungs: Clear to auscultation, Other (rales) Abdomen: Soft, no Distended Extremities: Edema - Procedures Procedures: Procedures Procedure Code Date EXCISION OF SIGMOID COLON, ENDO [id number] 08/19/18 EXCISION OF STOMACH, ENDO, DIAGN [id number] 08/19/18 PERFORMANCE OF URINARY FILTRATION, <6 HRS/DAY [id number] 08/19/18 TRANSFUSE NONAUT RED BLOOD CELLS IN PERIPH VEIN, PERC 46023O4 08/19/18 Assessment/Plan - Assessment Assessment: Pneumonia Sepsis Dysphagia ESRD on HD Stage IV decubitus wound Malnutrition HTN Mental health disorder - Plan Plan: ICU transfer Zosyn started ID consulted TPN per pharmacy HD per nephrology Case dw Dr BORJA Cardiology pulmonary on board Plan of care dw nursing staff Nutritional Asmnt/Malnutr-PDOC - Dietary Evaluation Malnutrition Findings (Please click <Entered> for more info): Nutritional Asmnt/Malnutrition Start: 11/21/18 16: 05 Text: Status: Complete Freq: Protocol: Document 11/21/18 16:05 [email or web address] (Rec: 11/21/18 16:17 [email or web address]) Nutritional Asmnt/Malnutrition Patient General Information Nutritional Screening High Risk Diagnosis PNA, dehydration Pertinent Medical Hx/Surgical Hx ESRD on HD, dementia, DM, HTN, dysphagia, malnutrition Subjective Information Pt asleep at visit, no family present; unable to obtain hx. PO intake 11/19 50-100-50%, 11/20 0% intake all meals per flowsheet; 11/21 90% breakfast, 50% lunch per RN= average po x 8 meals 43%. Niece feeds pt when present per RN, made aware of recs. Pt on dialysis. No noted food allergy. Discuccsed case with WOCN. Current Diet Order/ Nutrition Support renal 80g protein, NCS wtih nectar-thick liquids Patient / S.O Not Indicated Pertinent Medications vitamin C, IV abx, ferrous sulfate, folic acid, glucagon, Humalog, zinc sulfate, PRN Zofran/enema Pertinent Labs (11/21) Cr 3.9 Nutritional Hx/Data Height 1.83 m Height (Calculated Centimeters) 182.9 Current Weight (lbs) 61.689 kg Weight (Calculated Kilograms) 61.7 Weight (Calculated Grams) 54298.6 [place] Body Weight 178 lb Body Mass Index (BMI) 18.4 Weight Status Underweight GI Symptoms GI Symptoms None Last BM 11/21 Difficult in: Swallowing Skin Integrity/Comment: stage IV pressure injury at sacrococcygeal area Estimated Nutritional Goals Calories/Kcals/Kg 30-35 Kcals Calculated 5970-8751 Protein g/k-93 Protein Calculated 1.2-1.5 Fluid: ml 1000+UOP Nutritional Problem 2. Problem Problem increased nutrient needs Etiology ESRD and wound healing Signs/Symptoms: on HD and stage IV sacralcoccygeal area 1. Problem Problem Inadequate po intake Etiology lack of appetite/medical condition Signs/Symptoms: 43% average intake x 8 meals Intervention/Recommendation Comments 1. liberalize to 80g protein diet (no K/Phos restriction), MARIANN, NCS with nectar-thick liquids 2. add Nepro TID 3. consider vitamin B complex/ vitC/folic acid for wound healing 4. continue zinc sulfate at this time 5. consider topical zinc oxide for wound healing Expected Outcomes/Goals Expected Outcomes/Goals 1. PO intake to meet at least 75% of nutritional needs. 2. Wt stability, skin to remain intact, labs to approach WNL. Anastasiya Adamson RD
[2018-11-25] MEDS ORDERED: Piperacillin Sodium/Tazobact 3.375 gm Vial IV ONE (22:10)
--- NOTE | 2018-11-25 23:16 | Progress Notes ---
DATE: LOCATION: [facility], room #11, bed A. The patient's dialysis was incomplete yesterday due to hypotension and hypoxia. The patient is tachycardic at this time. The patient has a very poor intake. No peripheral IV is available to start TPN at this time. PHYSICAL EXAMINATION: VITAL SIGNS: Temperature 98.6, pulse 112, blood pressure 136/60, respiratory rate 22. HEART: Tachycardia. LUNGS: Rhonchi on both sides. ABDOMEN: Soft, not distended. EXTREMITIES: No edema. SIGNIFICANT LABORATORY DATA: WBC increased to 15.4, hemoglobin 10.6, platelet 237,000. Sodium 143, potassium 3.1, chloride 103, CO2 of 26, BUN 29, creatinine 5.0. Calcium, phosphorus, magnesium normal. ASSESSMENT: 1. Chronic kidney disease 5, on chronic hemodialysis. 2. Sepsis. 3. Sacral decubitus ulcer. 4. Tachycardia. 5. Malnutrition. 6. Right upper extremity AV fistula. 7. Perm-A-Cath for dialysis right side. 8. Anemia. 9. Worsening of leukocytosis. PLAN: 1. PICC line will be inserted. 2. Start the patient on TPN. 3. Dialysis tomorrow. 4. Cardiology and ID consultation. 5. Labs in the morning. 6. Discussed with Dr. Kwan at length. JOB# [id number]
--- NOTE | 2018-11-25 23:32 | Progress Notes ---
DATE: 11/25/2018 PULMONARY PROGRESS NOTE PROBLEM LIST: 1. Significant encephalopathic status. 2. Hypoxemia. 3. Renal failure. SUBJECTIVE: Apparently, I was told the patient's family wants comfort care. This morning, the patient desaturated and was put on 100% rebreather mask. The patient is very stuporous, only moves right, up and down non-purposefully, but no respiratory distress, etc. PHYSICAL EXAMINATION: VITAL SIGNS: Temperature is 98.5, pulse is about 100, blood pressure 140/80, saturation is okay on 100% of rebreather mask. NECK: Veins not visualized. CHEST: Shows diminished air entry with some secretory noise. HEART: Regular. ASSESSMENT: The patient is clinically deteriorating, gradually getting hypoxemia, etc. PLANS: Continue supportive care. He is being evaluated by hospice and care and plan also discussed with the nursing staff. JOB# [id number]
[2018-11-26] MEDS ORDERED: Piperacillin Sodium/Tazobact 2.25 gm Vial IV ONE (02:15)
[2018-11-26 05:50] LABS: HEMATOCRIT 35.2 % (41.0-60); HEMOGLOBIN 11.3 gm/dL (12-16); MEAN CELL VOLUME 86.2 fl (80-99); MEAN CORPUSCULAR HEMOGLOBIN 27.5 pg (27.0-31.0); PLATELET COUNT 258 Th/cmm (150-400); RED BLOOD COUNT 4.09 Mil/cmm (3.80-5.80)
[2018-11-26 05:51] LABS: WHITE BLOOD COUNT 18.1 Th/cmm (4.8-10.8)
[2018-11-26 05:59] LABS: ALB/GLOB RATIO 0.8 (1.0-1.8); ALBUMIN 2.9 gm/dL (4.2-5.5); ALKALINE PHOSPHATASE 73 U/L (34-104); BILIRUBIN,TOTAL 0.5 mg/dL (0.3-1.0); BUN - UREA NITROGEN 46 mg/dL (7-25); CALCIUM SERUM 10.3 mg/dL (8.6-10.3); CARBON DIOXIDE 22.2 mEq/L (21.0-31.0); CHLORIDE 106 mEq/L (98-107); GLUCOSE 140 mg/dL (70-105); MAGNESIUM 2.3 mg/dL (1.9-2.7); PHOSPHOROUS 4.8 mg/dL (2.5-5.0); POTASSIUM SERUM 4.2 mEq/L (3.5-5.1); SGOT 24 U/L (13-39); SGPT/ALT 11 U/L (7-52); SODIUM SERUM 148 mEq/L (136-145); TOTAL PROTEIN,SERUM 6.7 gm/dL (6.0-8.3)
[2018-11-26] MEDS: Piperacillin/Tazobact 2.25 gm in 0.9% NS 50 ML IV SCH ×3 (06:09→17:38)
[2018-11-26 06:19] LABS: CREATININE - SERUM 6.3 mg/dL (0.7-1.3)
[2018-11-26] MEDS: Albuterol/Ipratropium Neb 3 ML AERS HHN SCH ×4 (07:05→18:39)
[2018-11-26] MEDS: Budesonide 0.5 Mg/2 mL Ud HHN SCH ×2 (07:05→18:39)
[2018-11-26] MEDS: INSULIN LISPRO SLIDING SCALE 100 UNITS/ML UNIT SUBQ SCH ×3 (07:21→17:34)
[2018-11-26 07:24] LABS: LYMPHOCYTE 10 % (20-50); MONOCYTE 2 % (2-10); NEUTROPHILS 88 % (40-80)
--- NOTE | 2018-11-26 09:02 | Diagnostic Imaging Report ---
Right upper extremity Doppler venous ultrasound exam HISTORY: Swelling Sonographic sector images were obtained through the venous system of the right arm. Associated Doppler data was obtained. The exam demonstrates findings consistent with patient's history of arteriovenous fistula within the brachiocephalic region. No intraluminal abnormalities are seen within the internal jugular, subclavian, axillary, brachial, basilic veins. No thrombus. Normal compressibility. IMPRESSION: 1. No evidence of thrombophlebitis 2. Findings consistent with patient's history of A-V fistula
--- NOTE | 2018-11-26 09:10 | Diagnostic Imaging Report ---
Portable chest x-ray HISTORY: Vascular catheter placement, shortness of breath Compared with the prior exam of November 22, 2018, a left-sided vascular catheter is been inserted. The tip is in the regions. Vena cava. Infiltrate is noted in the left lower lobe consistent with pneumonia. Little change from the prior examination. The heart size is generous. IMPRESSION: 1. New vascular catheter placement as noted above 2. Little change in the pulmonary status since November 22, 2018.
[2018-11-26] MEDS: Ferrous Sulfate 300 MG/5 ML UDC PO SCH (09:37)
[2018-11-26] MEDS: Multivitamin w/ Minerals Tab PO SCH (09:38)
[2018-11-26] MEDS: Apixaban 2.5 MG TABLET PO SCH ×2 (09:39→21:29)
[2018-11-26] MEDS: Venelex 60gm Tube TP SCH (09:40)
--- NOTE | 2018-11-26 10:11 | Progress Notes ---
DATE: 11/18/2018 LOCATION: [facility], ICU bed #10. SUBJECTIVE: The patient has been transferred to ICU. PICC line has been inserted on the left upper extremity. TPN has been started. The patient's heart rate and blood pressure is improved. PHYSICAL EXAMINATION: VITAL SIGNS: Blood pressure 143/72, pulse 99, respirations 22. Yesterday's intake, not documented well. HEART: Regular. LUNGS: Few rhonchi on the right base. ABDOMEN: Soft, nondistended. EXTREMITIES: No edema. LABORATORY DATA: WBC count 18.1, hemoglobin 11.3, platelets 258,000. Sodium 148, potassium 4.2, chloride 106, CO2 of 22, BUN 46, creatinine 6.3, calcium 10.3. ASSESSMENT: 1. Worsening of leukocytosis. 2. Hypernatremia. 3. Chronic kidney disease 5, on chronic hemodialysis. 4. Anemia. 5. Sacral decubiti ulcer. 6. Malnutrition. 7. Right upper extremity arteriovenous fistula. 8. Left upper extremity PICC line. 9. Perm-A-Cath for dialysis right side. 10. Tachycardia, improving. PLAN: 1. Hemodialysis done today. 2. Continue TPN. 3. Check labs in the morning. 4. The patient may benefit with a long-term acute care. We will discuss with Dr. Kwan. JOB# [id number]
[2018-11-26] MEDS ORDERED: [UNRECOGNIZED DRUG - OTHER] IV SCH (16:00)
[2018-11-26] MEDS: Epoetin Alfa 20000 Units/mL Vial SUBQ SCH (17:35)
--- NOTE | 2018-11-26 22:26 | General Progress Note ---
Subjective - Review of Systems Service Date: 11/26/18 Events since last encounter: patient transfered to ICU and received dialysis wound care continues DNR status active no surgical intervention and patient will be transfered to [place] Objective - Results Result Diagrams: 11/26/18 05:05 11/26/18 05:05 Recent Labs: Laboratory Last Values WBC 18.1 Th/cmm (4.8-10.8) H 11/26/18 05:05 RBC 4.09 Mil/cmm (3.80-5.80) 11/26/18 05:05 Hgb 11.3 gm/dL (12-16) L 11/26/18 05:05 Hct 35.2 % (41.0-60) L 11/26/18 05:05 MCV 86.2 fl (80-99) 11/26/18 05:05 MCH 27.5 pg (27.0-31.0) 11/26/18 05:05 MCHC Differential 32.0 pg (28.0-36.0) 11/26/18 05:05 RDW 16.0 % (11.5-20.0) 11/26/18 05:05 Plt Count 258 Th/cmm (150-400) 11/26/18 05:05 MPV 9.1 fl 11/26/18 05:05 Add Manual Diff YES 11/26/18 05:05 Neutrophils % 82.2 % (40.0-80.0) H 11/22/18 05:00 Band Neutrophils % 0 % (0-10) 11/25/18 04:35 Lymphocytes % 12.1 % (20.0-50.0) L 11/22/18 05:00 Monocytes % 4.6 % (2.0-10.0) 11/22/18 05:00 Eosinophils % 0.7 % (0.0-5.0) 11/22/18 05:00 Basophils % 0.4 % (0.0-2.0) 11/22/18 05:00 Neutrophils (Manual) 88 % (40-80) H 11/26/18 05:05 Lymphocytes 10 % (20-50) L 11/26/18 05:05 Monocytes 2 % (2-10) 11/26/18 05:05 Eosinophils 0 % (0-5) 11/25/18 04:35 Basophils 0 % (0-3) 11/25/18 04:35 Platelet Estimate ADEQUATE (NORMAL) 11/21/18 04:45 PT 12.0 SECONDS (9.5-11.5) H 11/25/18 19:35 INR 1.16 (0.5-1.4) 11/25/18 19:35 Specimen Source Arterial 11/22/18 09:00 Sample Site Left Radial 11/22/18 09:00 pH 7.471 (7.35-7.45) H 11/22/18 09:00 pCO2 35.0 mmHg (35.0-45.0) 11/22/18 09:00 pO2 58.5 mmHg (80.0-100.0) L 11/22/18 09:00 HCO3 25.0 mEq/L (20.0-26.0) 11/22/18 09:00 Base Excess 1.8 mEq/L (-3.0-3.0) 11/22/18 09:00 O2 Saturation 92.0 % (92.0-100.0) 11/22/18 09:00 Ramos Test Positive 11/22/18 09:00 Vent Rate N/A 11/22/18 09:00 Inspired O2 32 11/22/18 09:00 Tidal Volume N/A 11/22/18 09:00 PEEP N/A 11/22/18 09:00 Pressure (ins/psv/peep) N/A 11/22/18 09:00 Critical Value DM 11/22/18 09:00 Sodium 148 mEq/L (136-145) H 11/26/18 05:05 Potassium 4.2 mEq/L (3.5-5.1) 11/26/18 05:05 Chloride 106 mEq/L (98-107) 11/26/18 05:05 Carbon Dioxide 22.2 mEq/L (21.0-31.0) 11/26/18 05:05 Anion Gap 24.0 (7.0-16.0) H 11/26/18 05:05 BUN 46 mg/dL (7-25) H 11/26/18 05:05 Creatinine 6.3 mg/dL (0.7-1.3) H* 11/26/18 05:05 Est GFR ( Amer) TNP 11/26/18 05:05 Est GFR (Non-Af Amer) TNP 11/26/18 05:05 BUN/Creatinine Ratio 7.3 11/26/18 05:05 Glucose 140 mg/dL (70-105) H 11/26/18 05:05 POC Glucose 165 MG/DL (70 - 105) H 11/26/18 21:39 Calcium 10.3 mg/dL (8.6-10.3) 11/26/18 05:05 Phosphorus 4.8 mg/dL (2.5-5.0) 11/26/18 05:05 Magnesium 2.3 mg/dL (1.9-2.7) 11/26/18 05:05 Total Bilirubin 0.5 mg/dL (0.3-1.0) 11/26/18 05:05 AST 24 U/L (13-39) 11/26/18 05:05 ALT 11 U/L (7-52) 11/26/18 05:05 Alkaline Phosphatase 73 U/L (34-104) 11/26/18 05:05 Total Protein 6.7 gm/dL (6.0-8.3) 11/26/18 05:05 Albumin 2.9 gm/dL (4.2-5.5) L 11/26/18 05:05 Globulin 3.8 gm/dL 11/26/18 05:05 Albumin/Globulin Ratio 0.8 (1.0-1.8) L 11/26/18 05:05 Triglycerides 75 mg/dL (<150) 11/25/18 04:35 Cholesterol 132 mg/dL (<200) 11/25/18 04:35 - Physical Exam Vitals and I&O: Vital Signs Temp 98.7 F 11/26/18 16:00 Pulse 100 11/26/18 19:04 Resp 31 11/26/18 19:04 BP 135/65 11/26/18 18:00 Pulse Ox 99 11/26/18 19:04 Intake & Output 11/26/18 11/26/18 11/27/18 06:59 18:59 06:59 Intake Total 50 Output Total 0 Balance 50 Weight (lbs) 160 lb 160 lb Intake: Intake, IV Amount 50 Piperacillin Sodium/ 50 Tazobact 2.25 gm In Sodium Chloride 0.9% 50 ml @ 100 mls/hr IV Q6HR [facility] Rx#:[id number] Oral 0 Output: Urine 0 Other: # Voids 0 # Bowel Movements 0 1 Weight Source Bedscale Estimated Active Medications: Current Medications Acetaminophen (Tylenol) 500 mg PO Q4HR PRN PRN Reason: Mild Pain Or Fever above 101 Stop: 01/17/19 20:18 Albuterol Sulfate (Albuterol 2.5mg/3ml Neb Ud) 2.5 mg HHN Q2H PRN PRN Reason: Shortness of Breath Stop: 01/17/19 23:27 Last Admin: 11/22/18 22:47 Dose: 2.5 mg Albuterol/Ipratropium (Duoneb Neb) 3 ml HHN [id number] [facility] Stop: 01/20/19 14:59 Last Admin: 11/26/18 18:39 Dose: 3 ml Ascorbic Acid (Vitamin C) 500 mg PO DAILY [facility] Stop: 01/18/19 08:59 Last Admin: 11/26/18 09:38 Dose: 500 mg Bisacodyl (Dulcolax 10 Mg Supp) 10 mg RC DAILY PRN PRN Reason: Constipation Stop: 01/17/19 23:48 Budesonide (Pulmicort) 0.5 mg HHN BIDRT [facility] Stop: 01/20/19 18:59 Last Admin: 11/26/18 18:39 Dose: 0.5 mg Carvedilol (Coreg) 25 mg PO BID [facility] Stop: 01/25/19 08:59 Last Admin: 11/26/18 17:38 Dose: 25 mg [place] Oil/[place] Balsam/Trypsin (Venelex) 1 appl TP DAILY [facility] Stop: 01/18/19 16:59 Last Admin: 11/26/18 09:40 Dose: 1 appl Dextrose (Dextrose 25%) 10 ml IVP PRN PRN PRN Reason: UD Dextrose (D50w) 50 ml IVP PRN PRN PRN Reason: Blood Glucose less than 70 Stop: 01/18/19 00:13 Dextrose (Glutose 40%) 18.75 gm PO PRN PRN PRN Reason: Blood Glucose less than 70 Stop: 01/18/19 00:13 Epoetin Ken[place] (Epogen) 10,000 units SUBQ [id number]@1700 [facility] Stop: 01/18/19 16:59 Last Admin: 11/26/18 17:35 Dose: Not Given Ferrous Sulfate (Iron) 300 mg PO DAILY [facility] Stop: 01/18/19 08:59 Last Admin: 11/26/18 09:37 Dose: 300 mg Folic Acid (Folate) 1 mg PO DAILY [facility] Stop: 01/18/19 08:59 Last Admin: 11/26/18 09:37 Dose: 1 mg Glucagon (Glucagen) 1 mg IM PRN PRN PRN Reason: Blood Glucose less than 70 Stop: 01/18/19 00:13 Hydralazine HCl (Apresoline) 50 mg PO Q12H [facility] Stop: 01/17/19 22:29 Last Admin: 11/26/18 09:38 Dose: 50 mg Piperacillin Sod/Tazobactam (Sod 2.25 gm/ Sodium Chloride) 50 mls @ 100 mls/hr IV Q6HR [facility] Stop: 01/25/19 05:59 Last Admin: 11/26/18 17:38 Dose: 100 mls/hr Multivitamins/Minerals 10 ml/Chromium/Copper/Manganese/Zinc 1 ml/ Folic Acid 1 mg/ Sodium Chloride 12 meq/ Amino Acids/Fat Emulsion Intravenous/Sterile Water 1,160 mls @ 40 mls/hr IV .Q24H [facility] Stop: 01/25/19 15:59 Last Admin: 11/26/18 15:57 Dose: 40 mls/hr Insulin Human Lispro (Humalog Insulin Sliding Scale) 0 units SUBQ ACHS [facility]; Protocol Stop: 01/18/19 07:29 Last Admin: 11/26/18 17:34 Dose: Not Given Miscellaneous (Tpn Per Pharmacy) 1 ea PRN PRN PRN Reason: PROTOCOL Stop: 01/24/19 06:27 Ondansetron HCl (Zofran) 4 mg IV Q6H PRN PRN Reason: Nausea / Vomiting Stop: 01/17/19 20:12 Sodium Phosphate (Fleet Enema) 135 ml RC PRN PRN PRN Reason: Constipation Stop: 01/17/19 23:48 Zinc Sulfate (Zinc Sulfate) 220 mg PO DAILY [facility] Stop: 01/18/19 08:59 Last Admin: 11/26/18 09:38 Dose: 220 mg General: Other (Lethargic) HEENT: Atraumatic Cardiovascular: Regular rate Lungs: Clear to auscultation, Other (rales) Abdomen: Soft, no Distended Extremities: Edema - Procedures Procedures: Procedures Procedure Code Date EXCISION OF SIGMOID COLON, ENDO [id number] 08/19/18 EXCISION OF STOMACH, ENDO, DIAGN [id number] 08/19/18 PERFORMANCE OF URINARY FILTRATION, <6 HRS/DAY [id number] 08/19/18 TRANSFUSE NONAUT RED BLOOD CELLS IN PERIPH VEIN, PERC 30586A7 08/19/18 Nutritional Asmnt/Malnutr-PDOC - Dietary Evaluation Malnutrition Findings (Please click <Entered> for more info): Nutritional Asmnt/Malnutrition Start: 11/21/18 16: 05 Text: Status: Complete Freq: Protocol: Document 11/21/18 16:05 [email or web address] (Rec: 11/21/18 16:17 [email or web address]) Nutritional Asmnt/Malnutrition Patient General Information Nutritional Screening High Risk Diagnosis PNA, dehydration Pertinent Medical Hx/Surgical Hx ESRD on HD, dementia, DM, HTN, dysphagia, malnutrition Subjective Information Pt asleep at visit, no family present; unable to obtain hx. PO intake 11/19 50-100-50%, 11/20 0% intake all meals per flowsheet; 11/21 90% breakfast, 50% lunch per RN= average po x 8 meals 43%. Niece feeds pt when present per RN, made aware of recs. Pt on dialysis. No noted food allergy. Discuccsed case with WOCN. Current Diet Order/ Nutrition Support renal 80g protein, NCS wtih nectar-thick liquids Patient / S.O Not Indicated Pertinent Medications vitamin C, IV abx, ferrous sulfate, folic acid, glucagon, Humalog, zinc sulfate, PRN Zofran/enema Pertinent Labs (11/21) Cr 3.9 Nutritional Hx/Data Height 6 ft Height (Calculated Centimeters) 182.9 Current Weight (lbs) 136 lb Weight (Calculated Kilograms) 61.7 Weight (Calculated Grams) 29149.6 [place] Body Weight 178 lb Body Mass Index (BMI) 18.4 Weight Status Underweight GI Symptoms GI Symptoms None Last BM 11/21 Difficult in: Swallowing Skin Integrity/Comment: stage IV pressure injury at sacrococcygeal area Estimated Nutritional Goals Calories/Kcals/Kg 30-35 Kcals Calculated 9995-4792 Protein g/k-93 Protein Calculated 1.2-1.5 Fluid: ml 1000+UOP Nutritional Problem 2. Problem Problem increased nutrient needs Etiology ESRD and wound healing Signs/Symptoms: on HD and stage IV sacralcoccygeal area 1. Problem Problem Inadequate po intake Etiology lack of appetite/medical condition Signs/Symptoms: 43% average intake x 8 meals Intervention/Recommendation Comments 1. liberalize to 80g protein diet (no K/Phos restriction), MARIANN, NCS with nectar-thick liquids 2. add Nepro TID 3. consider vitamin B complex/ vitC/folic acid for wound healing 4. continue zinc sulfate at this time 5. consider topical zinc oxide for wound healing Expected Outcomes/Goals Expected Outcomes/Goals 1. PO intake to meet at least 75% of nutritional needs. 2. Wt stability, skin to remain intact, labs to approach WNL. Anastasiya Adamson RD
--- NOTE | 2018-11-26 22:58 | General Progress Note ---
Subjective - Review of Systems Service Date: 11/26/18 Subjective: Patient seen and examined in ICU awake but less responsive scheduled for HD today WBC elevated afebrile Objective - Results Result Diagrams: 11/26/18 05:05 11/26/18 05:05 Recent Labs: Laboratory Last Values WBC 18.1 Th/cmm (4.8-10.8) H 11/26/18 05:05 RBC 4.09 Mil/cmm (3.80-5.80) 11/26/18 05:05 Hgb 11.3 gm/dL (12-16) L 11/26/18 05:05 Hct 35.2 % (41.0-60) L 11/26/18 05:05 MCV 86.2 fl (80-99) 11/26/18 05:05 MCH 27.5 pg (27.0-31.0) 11/26/18 05:05 MCHC Differential 32.0 pg (28.0-36.0) 11/26/18 05:05 RDW 16.0 % (11.5-20.0) 11/26/18 05:05 Plt Count 258 Th/cmm (150-400) 11/26/18 05:05 MPV 9.1 fl 11/26/18 05:05 Add Manual Diff YES 11/26/18 05:05 Neutrophils % 82.2 % (40.0-80.0) H 11/22/18 05:00 Band Neutrophils % 0 % (0-10) 11/25/18 04:35 Lymphocytes % 12.1 % (20.0-50.0) L 11/22/18 05:00 Monocytes % 4.6 % (2.0-10.0) 11/22/18 05:00 Eosinophils % 0.7 % (0.0-5.0) 11/22/18 05:00 Basophils % 0.4 % (0.0-2.0) 11/22/18 05:00 Neutrophils (Manual) 88 % (40-80) H 11/26/18 05:05 Lymphocytes 10 % (20-50) L 11/26/18 05:05 Monocytes 2 % (2-10) 11/26/18 05:05 Eosinophils 0 % (0-5) 11/25/18 04:35 Basophils 0 % (0-3) 11/25/18 04:35 Platelet Estimate ADEQUATE (NORMAL) 11/21/18 04:45 PT 12.0 SECONDS (9.5-11.5) H 11/25/18 19:35 INR 1.16 (0.5-1.4) 11/25/18 19:35 Specimen Source Arterial 11/22/18 09:00 Sample Site Left Radial 11/22/18 09:00 pH 7.471 (7.35-7.45) H 11/22/18 09:00 pCO2 35.0 mmHg (35.0-45.0) 11/22/18 09:00 pO2 58.5 mmHg (80.0-100.0) L 11/22/18 09:00 HCO3 25.0 mEq/L (20.0-26.0) 11/22/18 09:00 Base Excess 1.8 mEq/L (-3.0-3.0) 11/22/18 09:00 O2 Saturation 92.0 % (92.0-100.0) 11/22/18 09:00 Ramos Test Positive 11/22/18 09:00 Vent Rate N/A 11/22/18 09:00 Inspired O2 32 11/22/18 09:00 Tidal Volume N/A 11/22/18 09:00 PEEP N/A 11/22/18 09:00 Pressure (ins/psv/peep) N/A 11/22/18 09:00 Critical Value DM 11/22/18 09:00 Sodium 148 mEq/L (136-145) H 11/26/18 05:05 Potassium 4.2 mEq/L (3.5-5.1) 11/26/18 05:05 Chloride 106 mEq/L (98-107) 11/26/18 05:05 Carbon Dioxide 22.2 mEq/L (21.0-31.0) 11/26/18 05:05 Anion Gap 24.0 (7.0-16.0) H 11/26/18 05:05 BUN 46 mg/dL (7-25) H 11/26/18 05:05 Creatinine 6.3 mg/dL (0.7-1.3) H* 11/26/18 05:05 Est GFR ( Amer) TNP 11/26/18 05:05 Est GFR (Non-Af Amer) TNP 11/26/18 05:05 BUN/Creatinine Ratio 7.3 11/26/18 05:05 Glucose 140 mg/dL (70-105) H 11/26/18 05:05 POC Glucose 165 MG/DL (70 - 105) H 11/26/18 21:39 Calcium 10.3 mg/dL (8.6-10.3) 11/26/18 05:05 Phosphorus 4.8 mg/dL (2.5-5.0) 11/26/18 05:05 Magnesium 2.3 mg/dL (1.9-2.7) 11/26/18 05:05 Total Bilirubin 0.5 mg/dL (0.3-1.0) 11/26/18 05:05 AST 24 U/L (13-39) 11/26/18 05:05 ALT 11 U/L (7-52) 11/26/18 05:05 Alkaline Phosphatase 73 U/L (34-104) 11/26/18 05:05 Total Protein 6.7 gm/dL (6.0-8.3) 11/26/18 05:05 Albumin 2.9 gm/dL (4.2-5.5) L 11/26/18 05:05 Globulin 3.8 gm/dL 11/26/18 05:05 Albumin/Globulin Ratio 0.8 (1.0-1.8) L 11/26/18 05:05 Triglycerides 75 mg/dL (<150) 11/25/18 04:35 Cholesterol 132 mg/dL (<200) 11/25/18 04:35 - Physical Exam Vitals and I&O: Vital Signs Temp 98.7 F 11/26/18 16:00 Pulse 110 11/26/18 22:00 Resp 32 11/26/18 22:00 BP 99/37 11/26/18 22:00 Pulse Ox 100 11/26/18 22:00 Intake & Output 11/26/18 11/26/18 11/27/18 06:59 18:59 06:59 Intake Total 50 Output Total 0 Balance 50 Weight (lbs) 72.575 kg 72.575 kg Intake: Intake, IV Amount 50 Piperacillin Sodium/ 50 Tazobact 2.25 gm In Sodium Chloride 0.9% 50 ml @ 100 mls/hr IV Q6HR [facility] Rx#:[id number] Oral 0 Output: Urine 0 Other: # Voids 0 # Bowel Movements 0 1 Weight Source Bedscale Estimated Active Medications: Current Medications Acetaminophen (Tylenol) 500 mg PO Q4HR PRN PRN Reason: Mild Pain Or Fever above 101 Stop: 01/17/19 20:18 Albuterol Sulfate (Albuterol 2.5mg/3ml Neb Ud) 2.5 mg HHN Q2H PRN PRN Reason: Shortness of Breath Stop: 01/17/19 23:27 Last Admin: 11/22/18 22:47 Dose: 2.5 mg Albuterol/Ipratropium (Duoneb Neb) 3 ml HHN [id number] [facility] Stop: 01/20/19 14:59 Last Admin: 11/26/18 18:39 Dose: 3 ml Ascorbic Acid (Vitamin C) 500 mg PO DAILY [facility] Stop: 01/18/19 08:59 Last Admin: 11/26/18 09:38 Dose: 500 mg Bisacodyl (Dulcolax 10 Mg Supp) 10 mg RC DAILY PRN PRN Reason: Constipation Stop: 01/17/19 23:48 Budesonide (Pulmicort) 0.5 mg HHN BIDRT [facility] Stop: 01/20/19 18:59 Last Admin: 11/26/18 18:39 Dose: 0.5 mg Carvedilol (Coreg) 25 mg PO BID [facility] Stop: 01/25/19 08:59 Last Admin: 11/26/18 17:38 Dose: 25 mg [place] Oil/[place] Balsam/Trypsin (Venelex) 1 appl TP DAILY [facility] Stop: 01/18/19 16:59 Last Admin: 11/26/18 09:40 Dose: 1 appl Dextrose (Dextrose 25%) 10 ml IVP PRN PRN PRN Reason: UD Dextrose (D50w) 50 ml IVP PRN PRN PRN Reason: Blood Glucose less than 70 Stop: 01/18/19 00:13 Dextrose (Glutose 40%) 18.75 gm PO PRN PRN PRN Reason: Blood Glucose less than 70 Stop: 01/18/19 00:13 Epoetin [place] (Epogen) 10,000 units SUBQ MoWeFr@1700 [facility] Stop: 01/18/19 16:59 Last Admin: 11/26/18 17:35 Dose: Not Given Ferrous Sulfate (Iron) 300 mg PO DAILY [facility] Stop: 01/18/19 08:59 Last Admin: 11/26/18 09:37 Dose: 300 mg Folic Acid (Folate) 1 mg PO DAILY [facility] Stop: 01/18/19 08:59 Last Admin: 11/26/18 09:37 Dose: 1 mg Glucagon (Glucagen) 1 mg IM PRN PRN PRN Reason: Blood Glucose less than 70 Stop: 01/18/19 00:13 Hydralazine HCl (Apresoline) 50 mg PO Q12H [facility] Stop: 01/17/19 22:29 Last Admin: 11/26/18 09:38 Dose: 50 mg Piperacillin Sod/Tazobactam (Sod 2.25 gm/ Sodium Chloride) 50 mls @ 100 mls/hr IV Q6HR [facility] Stop: 01/25/19 05:59 Last Admin: 11/26/18 17:38 Dose: 100 mls/hr Multivitamins/Minerals 10 ml/Chromium/Copper/Manganese/Zinc 1 ml/ Folic Acid 1 mg/ Sodium Chloride 12 meq/ Amino Acids/Fat Emulsion Intravenous/Sterile Water 1,160 mls @ 40 mls/hr IV .Q24H [facility] Stop: 01/25/19 15:59 Last Admin: 11/26/18 15:57 Dose: 40 mls/hr Insulin Human Lispro (Humalog Insulin Sliding Scale) 0 units SUBQ ACHS [facility]; Protocol Stop: 01/18/19 07:29 Last Admin: 11/26/18 17:34 Dose: Not Given Miscellaneous (Tpn Per Pharmacy) 1 ea MC PRN PRN PRN Reason: PROTOCOL Stop: 01/24/19 06:27 Ondansetron HCl (Zofran) 4 mg IV Q6H PRN PRN Reason: Nausea / Vomiting Stop: 01/17/19 20:12 Sodium Phosphate (Fleet Enema) 135 ml RC PRN PRN PRN Reason: Constipation Stop: 01/17/19 23:48 Zinc Sulfate (Zinc Sulfate) 220 mg PO DAILY [facility] Stop: 01/18/19 08:59 Last Admin: 11/26/18 09:38 Dose: 220 mg General: No acute distress, Other (Lethargic) HEENT: Atraumatic Cardiovascular: Regular rate Lungs: Clear to auscultation, Other (rales) Abdomen: Soft, no Distended Extremities: Edema - Procedures Procedures: Procedures Procedure Code Date EXCISION OF SIGMOID COLON, ENDO [id number] 08/19/18 EXCISION OF STOMACH, ENDO, DIAGN [id number] 08/19/18 PERFORMANCE OF URINARY FILTRATION, <6 HRS/DAY [id number] 08/19/18 TRANSFUSE NONAUT RED BLOOD CELLS IN PERIPH VEIN, PERC [id number] 08/19/18 Assessment/Plan - Assessment Assessment: Pneumonia Sepsis Dysphagia ESRD on HD Stage IV decubitus wound Malnutrition HTN Mental health disorder - Plan Plan: Awaiting LTAC tranfer Continue Zosyn ID consulted TPN per pharmacy HD per nephrology Plan of care dw nursing staff Daily wound care Overall prognosis is poor Nutritional Asmnt/Malnutr-PDOC - Dietary Evaluation Malnutrition Findings (Please click <Entered> for more info): Nutritional Asmnt/Malnutrition Start: 11/21/18 16: 05 Text: Status: Complete Freq: Protocol: Document 11/21/18 16:05 [email or web address] (Rec: 11/21/18 16:17 [email or web address]) Nutritional Asmnt/Malnutrition Patient General Information Nutritional Screening High Risk Diagnosis PNA, dehydration Pertinent Medical Hx/Surgical Hx ESRD on HD, dementia, DM, HTN, dysphagia, malnutrition Subjective Information Pt asleep at visit, no family present; unable to obtain hx. PO intake 11/19 50-100-50%, 11/20 0% intake all meals per flowsheet; 11/21 90% breakfast, 50% lunch per RN= average po x 8 meals 43%. Niece feeds pt when present per RN, made aware of recs. Pt on dialysis. No noted food allergy. Discuccsed case with WOCN. Current Diet Order/ Nutrition Support renal 80g protein, NCS wtih nectar-thick liquids Patient / S.O Not Indicated Pertinent Medications vitamin C, IV abx, ferrous sulfate, folic acid, glucagon, Humalog, zinc sulfate, PRN Zofran/enema Pertinent Labs (11/21) Cr 3.9 Nutritional Hx/Data Height 1.83 m Height (Calculated Centimeters) 182.9 Current Weight (lbs) 61.689 kg Weight (Calculated Kilograms) 61.7 Weight (Calculated Grams) 74195.6 [place] Body Weight 178 lb Body Mass Index (BMI) 18.4 Weight Status Underweight GI Symptoms GI Symptoms None Last BM 6/7 Difficult in: Swallowing Skin Integrity/Comment: stage IV pressure injury at sacrococcygeal area Estimated Nutritional Goals Calories/Kcals/Kg 30-35 Kcals Calculated 8333-8626 Protein g/k-93 Protein Calculated 1.2-1.5 Fluid: ml 1000+UOP Nutritional Problem 2. Problem Problem increased nutrient needs Etiology ESRD and wound healing Signs/Symptoms: on HD and stage IV sacralcoccygeal area 1. Problem Problem Inadequate po intake Etiology lack of appetite/medical condition Signs/Symptoms: 43% average intake x 8 meals Intervention/Recommendation Comments 1. liberalize to 80g protein diet (no K/Phos restriction), MARIANN, NCS with nectar-thick liquids 2. add Nepro TID 3. consider vitamin B complex/ vitC/folic acid for wound healing 4. continue zinc sulfate at this time 5. consider topical zinc oxide for wound healing Expected Outcomes/Goals Expected Outcomes/Goals 1. PO intake to meet at least 75% of nutritional needs. 2. Wt stability, skin to remain intact, labs to approach WNL. Anastasiya Adamson RD
--- NOTE | 2018-11-27 00:04 | Consultation ---
DATE OF CONSULTATION: 11/26/2018 PATIENT OF: Dr. Erasmo Kwan. HISTORY OF PRESENT ILLNESS: This is a 73-year-old male patient who was transferred to ICU because of respiratory distress. Following this, cardiac consult was requested. 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 FAMILY HISTORY: Unremarkable. SOCIAL HISTORY: No history of smoking, alcohol abuse. ALLERGIES: None. PHYSICAL EXAMINATION: VITAL SIGNS: Blood pressure 110/60, pulse 100, respirations 28. HEAD: Normocephalic. No lumps or bumps. EYES: Pupils equal, reactive to light. Fundi show AV nicking, sclerae white, conjunctivae pink. NECK: Carotid 2+. Normal upstroke. JVD flat. Thyroid not palpable. Lymph nodes not palpable. CHEST: Shows increased AP diameter. No kyphosis, scoliosis. LUNGS: Bilateral bronchovesicular breath sounds. HEART: PMI fifth intercostal space with lateral to midclavicular line. S1, S2. No S3. Soft S4. Systolic murmur, grade 2/6, lower left sternal border without radiation. ABDOMEN: Soft. Liver, spleen not palpable. No organomegaly. Bowel sounds active. NEUROLOGIC: No focal neurological deficit. EXTREMITIES: Peripheral pulses 2+. No pedal edema. The patient has contracture of both upper and lower extremity. CLINICAL IMPRESSION: 1. Acute respiratory failure. 2. Sepsis. 3. Chronic kidney disease stage 5; end-stage renal disease, on dialysis. 4. Stage IV sacral decubitus ulcer. 5. Protein-calorie malnutrition. 6. Hypertension. 7. Contractures of both upper and lower extremity. PLAN: The patient to continue IV antibiotic. Monitor the blood pressure. IV fluids. JOB# [id number]
== END 2018-11-26 22:30 | DRG 871 ==
LOC: MSI 18:44 → MERGE 18:44 → TELE 11-25 01:02 → ICU 11-25 17:30
PROVIDERS: ADMIT Family Medicine; ATTEND Family Medicine
PROC: 5A1D70Z Performance of Urinary Filtration, Intermittent, Less than 6 Hours Per Day (ICD-10-PCS; 2018-11-19)
PROC: 5A1D70Z Performance of Urinary Filtration, Intermittent, Less than 6 Hours Per Day (ICD-10-PCS; 2018-11-25)
PROC: 3E0436Z Introduction of Nutritional Substance into Central Vein, Percutaneous Approach (ICD-10-PCS; principal; 2018-11-26)
PROC: 0XH Anatomical Regions, Upper Extremities, Insertion (ICD-10-PCS; 2018-11-26)
PROC: 5A1D70Z Performance of Urinary Filtration, Intermittent, Less than 6 Hours Per Day (ICD-10-PCS; 2018-11-26)
DX: A41.9 Sepsis, unspecified organism (principal); J18.9 Pneumonia, unspecified organism; L89.154 Pressure ulcer of sacral region, stage 4; N18.6 End stage renal disease; J96.01 Acute respiratory failure with hypoxia; E46 Unspecified protein-calorie malnutrition; I12.0 Hypertensive chronic kidney disease with stage 5 chronic kidney disease or end stage renal disease; E87.0 Hyperosmolality and hypernatremia; F03.90 Unspecified dementia, unspecified severity, without behavioral disturbance, psychotic disturbance, mood disturbance, and anxiety; D64.9 Anemia, unspecified; D17.9 Benign lipomatous neoplasm, unspecified; E11.22 Type 2 diabetes mellitus with diabetic chronic kidney disease; R13.10 Dysphagia, unspecified; Z66 Do not resuscitate; Z68.21 Body mass index [BMI] 21.0-21.9, adult; Z79.4 Long term (current) use of insulin; Z99.2 Dependence on renal dialysis
CPT/HCPCS: 36415-UA; 36600-90; 71045-TC; 80048-TC; 80053-TC; 82465-TC; 82803-TC; 82948-90; 83735-TC; 84100-TC; 84132-TC; 84134-90; 84478-TC; 85007-TC; 85025-TC; 85610-TC; 87070; 90799; 90937; 93971-TC-RT; 94640; 94760; J0456; J0696; J0885; J1644; J1815; J2543; J3480; J7030; J7131; J7613; X6598; Z7610